=== PATIENT | female | born 2000 | race Caucasian/White ===

== ENCOUNTER 2020-01-30 06:41 | Emergency (ER) | payer OTHER ==
[2020-01-30 06:46] VITALS: TEMP 98.4
[2020-01-30] MEDS ORDERED: ONDANSETRON ODT 4 MG TAB PO STA (06:54)
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
--- NOTE | 2020-01-30 07:29 | CT ---
EXAMINATION TYPE: CT brain víctor bustillos DATE OF EXAM: 01/30/2020 COMPARISON: None HISTORY: Fall, Headaches CT DLP: 1604.[address] Brain: Unenhanced CT of the brain was performed. The ventricles, basal cisterns and sulci overlying the cerebral convexities demonstrate a normal appe arance. There is no evidence for intracranial hemorrhage or sulcal effacement. No mass effects are seen. If symptoms persist consider MRI. Osseous calvarium is intact. IMPRESSION: No acute intracranial process CT Cervical Spine: Unenhanced CT of the cervical spine was performed with bone and soft tissue window settings submitted . Coronal and sagittal reconstruction is obtained. There is normal alignment and prevertebral soft tissues. I do not see evidence for fracture or sublu xation. No significant degenerative changes are present. The lung apices are clear. IMPRESSION: No evidence for acute fracture or subluxation of the cervical spine.
--- NOTE | 2020-01-30 07:55 | XR ---
EXAMINATION TYPE: XR Hip RT and AP Pelvis DATE OF EXAM: 01/30/2020 CLINICAL HISTORY: pain TECHNIQUE: Single view the pelvis is submitted. The right hip are also submitted. FINDINGS: No evidence for fracture, dislocation or bony lesion. Joint spaces are well-preserved. S I joints appear symmetric. IMPRESSION: 1. No acute fracture or dislocation seen. ICD 10 NO FRACTURE, INITIAL EVALUATION
[2020-01-30 08:48] VITALS: BP 128/79; PULSE 86; RESP 18
== END 2020-01-30 08:36 | disposition home or self-care (01) ==
LOC: EC 06:41
DX: S50.311A Abrasion of right elbow, initial encounter (principal); R51 Headache; M25.559 Pain in unspecified hip; Z91.018 Allergy to other foods; W05.1XXA Fall from non-moving nonmotorized scooter, initial encounter; Y93.55 Activity, bike riding
CPT/HCPCS: 70450; 72125; 73502; 99284

== ENCOUNTER 2020-02-06 03:48 | Emergency (ER) | payer OTHER ==
[2020-02-06] MEDS ORDERED: methylPREDNISolone SOD SUCCI 125 MG/2 ML VIAL IV STA (04:18)
[2020-02-06] MEDS ORDERED: IPRATROPIUM-ALBUTEROL 3 ML NEB INHALATION STA (04:18)
[2020-02-06] MEDS ORDERED: SODIUM CHLORIDE 0.9% 1,000 ML IV STA (04:18)
[2020-02-06] MEDS ORDERED: LORazepam 2 MG/ML INJ IV STA (04:19)
[2020-02-06] MEDS ORDERED: ONDANSETRON 4 MG/2 ML VIAL IVP STA (04:20)
--- NOTE | 2020-02-06 04:21 | ED ---
SOB HPI - General Chief Complaint: Shortness of Breath Stated Complaint: SOB Time Seen by Provider: 02/06/20 04:03 Source: patient, RN notes reviewed, old records reviewed Mode of arrival: ambulatory Limitations: no limitations - History of Present Illness Initial Comments: This is a 19-year-old female she presents today for evaluation regards to severe shortness of breath also of anxiety and dyspnea. With significant blood loss. Patient wishes going to. She does have a lot of cramping lightheadedness occasional shortness of breath and feelings of dizziness and weakness that she may pass out. No severe pain. No current chest pain which is severe she does have shortness of breath took inhaler did mildly help. MD Complaint: shortness of breath, cough, anxiety -: hour(s) Severity: moderate Severity scale (1-10): 6 Consistency: constant Improves With: oxygen, bronchodilators Worsens With: exertion, movement Context: recent URI, other (Patient on her period) - Related Data Allergies Allergy/AdvReac Type Severity Reaction Status Date / Time gluten Allergy Rash/Hives Verified 02/06/20 03:54 Review of Systems ROS Statement: Those systems with pertinent positive or pertinent negative responses have been documented in the HPI. ROS Other: All systems not noted in ROS Statement are negative. Past Medical History Past Medical History: Asthma History of Any Multi-Drug Resistant Organisms: None Reported Past Surgical History: No Surgical Hx Reported Past Psychological History: Anxiety, Bipolar, Depression, PTSD Smoking Status: Never smoker Past Alcohol Use History: None Reported Past Drug Use History: None Reported General Exam Limitations: no limitations General appearance: alert, in no apparent distress, obese Head exam: Present: atraumatic, normocephalic, normal inspection Eye exam: Present: normal appearance, PERRL, EOMI. Absent: scleral icterus, conjunctival injection, periorbital swelling ENT exam: Present: normal exam, mucous membranes moist Neck exam: Present: normal inspection. Absent: tenderness, meningismus, lymphadenopathy Respiratory exam: Present: wheezes, accessory muscle use, decreased breath sounds, prolonged expiratory. Absent: respiratory distress, rales, rhonchi, stridor Cardiovascular Exam: Present: regular rate, normal rhythm, normal heart sounds. Absent: systolic murmur, diastolic murmur, rubs, gallop, clicks GI/Abdominal exam: Present: soft, normal bowel sounds. Absent: distended, tenderness, guarding, rebound, rigid Extremities exam: Present: normal inspection, full ROM, normal capillary refill. Absent: tenderness, pedal edema, joint swelling, calf tenderness Back exam: Present: normal inspection Neurological exam: Present: alert, oriented X3, CN II-XII intact Psychiatric exam: Present: normal affect, normal mood Skin exam: Present: warm, dry, intact, normal color. Absent: rash Course Vital Signs 02/06/20 02/06/20 02/06/20 03:52 04:30 04:44 Temperature 98.7 F Pulse Rate 77 68 76 Respiratory 19 Rate Blood Pressure 121/68 O2 Sat by Pulse 99 Oximetry - Reevaluation(s) Reevaluation #1: 02/06/20 04:21 Medical records reviewed Reevaluation #2: 02/06/20 05:05 Patient symptoms are significantly improved here in the ER Reevaluation #3: 02/06/20 05:05 Patient is informed results questions are answered Medical Decision Making - Medical Decision Making 19 female DEL with anxiety times asthma exacerbation. Post symptoms are improved here in the ER hemoglobin is normal no concern for significant vaginal bleeding patient can be discharged home - Lab Data Result diagrams: 02/06/20 04:31 Lab Results 02/06/20 02/06/20 Range/Units 04:31 04:31 WBC 8.7 (4.0-11.0) k/uL RBC 4.61 (3.80-5.40) m/uL Hgb 13.0 (11.4-16.0) gm/dL Hct 40.0 (34.0-46.0) % MCV 86.8 (80.0-100.0) fL MCH 28.2 (25.0-35.0) pg MCHC 32.5 (31.0-37.0) g/dL RDW 13.8 (11.5-15.5) % Plt Count 325 (150-450) k/uL Neutrophils % 68 % Lymphocytes % 24 % Monocytes % 5 % Eosinophils % 1 % Basophils % 1 % Neutrophils # 5.9 (1.3-7.7) k/uL Lymphocytes # 2.1 (1.0-4.8) k/uL Monocytes # 0.5 (0-1.0) k/uL Eosinophils # 0.1 (0-0.7) k/uL Basophils # 0.0 (0-0.2) k/uL Urine HCG, Qual Not Detected (Not Detectd) - Radiology Data Radiology results: report reviewed (Chest x-ray is negative for acute disease), image reviewed Disposition Clinical Impression: Asthma with acute exacerbation, Anxiety, DUB (dysfunctional uterine bleeding) Disposition: HOME SELF-CARE Condition: Good Instructions (If sedation given, give patient instructions): Asthma (ED), Acute Bronchitis (ED), Menorrhagia (ED) Is patient prescribed a controlled substance at d/c from ED?: No Referrals: None,Stated [Primary Care Provider] - 1-2 days
[2020-02-06 05:00] LABS: Basophils % (A) 1 %; Eosinophils # (A) 0.1 k/uL (0-0.7); Eosinophils % (A) 1 %; Lymphocytes # (A) 2.1 k/uL (1.0-4.8); Lymphocytes % (A) 24 %; MCH 28.2 pg (25.0-35.0); MCHC 32.5 g/dL (31.0-37.0); MCV 86.8 fL (80.0-100.0); Mean Platelet Volume 6.8; Monocytes # (A) 0.5 k/uL (0-1.0); Monocytes % (A) 5 %; Neutrophils # (A) 5.9 k/uL (1.3-7.7); Neutrophils % (A) 68 %; Platelet Count 325 k/uL (150-450); RBC 4.61 m/uL (3.80-5.40); RDW 13.8 % (11.5-15.5); WBC 8.7 k/uL (4.0-11.0)
[2020-02-06 05:06] LABS: ALT 20 U/L (4-34); AST 22 U/L (14-36); African American GFR (CKD) >90 (>60 ml/min/1.73 sqM); Albumin 4.1 g/dL (3.5-5.0); Alkaline Phosphatase 81 U/L (38-126); Anion Gap 8 mmol/L; Blood Urea Nitrogen 13 mg/dL (7-17); Calcium 9.6 mg/dL (8.4-10.2); Carbon Dioxide 24 mmol/L (22-30); Chloride 107 mmol/L (98-107); Glucose 93 mg/dL (74-99); Magnesium 1.9 mg/dL (1.6-2.3); Non-African American GFR(CKD) >90 (>60 ml/min/1.73 sqM); Potassium 4.2 mmol/L (3.5-5.1); Sodium 139 mmol/L (137-145); Total Bilirubin 0.3 mg/dL (0.2-1.3); Total Protein 7.5 g/dL (6.3-8.2)
[2020-02-06 05:52] VITALS: BP 109/55; PULSE 89; RESP 18; TEMP 98
[2020-02-06] MEDS ORDERED: ONDANSETRON 4 MG ODT STARTER PACK 2 TAB BTL PO STA (05:56)
--- NOTE | 2020-02-06 06:27 | XR ---
EXAM: XR Chest, 2 Views CLINICAL HISTORY: ITS.REASON XR Reason: difficulty breathing TECHNIQUE: Frontal and lateral views of the chest. COMPARISON: No relevant prior studies available. FINDINGS: Lungs: Low lung volumes secondary to poor inspiration. No consolidation. Pleural space: Unremarkable. No pneumothorax. Heart: Unremarkable. No cardiomegaly. Mediastinum: Unremarkable. Bones/joints: Unremarkable. IMPRESSION: No focal infiltrate.
== END 2020-02-06 05:52 | disposition home or self-care (01) ==
LOC: EC 03:48
DX: J45.901 Unspecified asthma with (acute) exacerbation (principal); F41.9 Anxiety disorder, unspecified; N93.8 Other specified abnormal uterine and vaginal bleeding; Z91.040 Latex allergy status
CPT/HCPCS: 36415; 94640; 80053; 83735; 85025; 81025; 71046; 99285; 96374; 96375 ×2; 96361; J2060; J2930; J2405; S0119

== ENCOUNTER 2020-02-08 11:07 | Emergency (ER) | payer OTHER ==
[2020-02-08] MEDS ORDERED: SODIUM CHLORIDE 0.9% 1,000 ML IV STA ×2 (11:27)
[2020-02-08] MEDS ORDERED: methylPREDNISolone SOD SUCCI 125 MG/2 ML VIAL IV STA (11:29)
--- NOTE | 2020-02-08 11:35 | ED ---
General Adult HPI - General Chief complaint: Shortness of Breath Stated complaint: cough sob Time Seen by Provider: 02/08/20 11:18 Source: patient, RN notes reviewed, old records reviewed Mode of arrival: ambulatory Limitations: no limitations - History of Present Illness Initial comments: This patient's a 19-year-old female who presents to the ER today for evaluation for shortness of breath. She reports that she was seen in the emergency room 2 days ago for asthma bronchitis exacerbation as well as diagnosed with anxiety. She states she is currently on her menstrual. She states that he's had a nonproductive cough. She states that seems like it's difficult for her to take it all deep breath. She is using her inhaler. - Related Data Allergies Allergy/AdvReac Type Severity Reaction Status Date / Time gluten Allergy Rash/Hives Verified 02/08/20 11:16 Review of Systems ROS Statement: Those systems with pertinent positive or pertinent negative responses have been documented in the HPI. ROS Other: All systems not noted in ROS Statement are negative. Past Medical History Past Medical History: Asthma History of Any Multi-Drug Resistant Organisms: None Reported Past Surgical History: No Surgical Hx Reported Past Psychological History: Anxiety, Bipolar, Depression, PTSD Smoking Status: Never smoker Past Alcohol Use History: None Reported Past Drug Use History: None Reported General Exam - General Exam Comments Initial Comments: Pleasant alert and oriented 19-year-old female. No acute distress. Limitations: no limitations General appearance: alert, in no apparent distress Head exam: Present: atraumatic, normocephalic, normal inspection Eye exam: Present: normal appearance, PERRL, EOMI. Absent: scleral icterus, conjunctival injection, periorbital swelling ENT exam: Present: normal exam, mucous membranes moist Neck exam: Present: normal inspection. Absent: tenderness, meningismus, lymphadenopathy Respiratory exam: Present: normal lung sounds bilaterally. Absent: respiratory distress, wheezes, rales, rhonchi, stridor Cardiovascular Exam: Present: regular rate, normal rhythm, normal heart sounds. Absent: systolic murmur, diastolic murmur, rubs, gallop, clicks GI/Abdominal exam: Present: soft, normal bowel sounds. Absent: distended, tenderness, guarding, rebound, rigid Extremities exam: Present: normal inspection, full ROM, normal capillary refill. Absent: tenderness, pedal edema, joint swelling, calf tenderness Back exam: Present: normal inspection Neurological exam: Present: alert, oriented X3, CN II-XII intact Psychiatric exam: Present: normal affect, normal mood Skin exam: Present: warm, dry, intact, normal color. Absent: rash Course Vital Signs 02/08/20 02/08/20 11:12 11:52 Temperature 98.2 F Pulse Rate 67 Respiratory 20 18 Rate Blood Pressure 128/80 O2 Sat by Pulse 100 Oximetry EKG Findings - EKG Comments: EKG Findings:: EKG shows normal sinus rhythm with sinus arrhythmia. Moderate voltage return for LVH. Ventricular rate of 65 bpm. Was 164 ms. QS duration is 94 ms. QT QTc is 394/409 ms. Medical Decision Making - Medical Decision Making 19-year-old female presents the ER today for chest pain shortness of breath. She seen her and her 2 days ago. At that time was diagnosed with anxiety as well as asthma exacerbation. This time her lungs are clear. She also complained of palpitations. Patient's labs including troponin and d-dimer are normal. Chest x-ray shows no acute changes. EKG was negative for acute process. Patient's case was discussed with Dr. Graham. Do believe patient's symptoms are most likely related to anxiety and mild bronchitis. Advised her to follow-up with her PCP. We'll add additional Medrol Dosepak. - Lab Data Result diagrams: 02/08/20 12:15 02/08/20 12:15 Lab Results 02/08/20 02/08/20 02/08/20 Range/Units 12:15 12:15 12:15 WBC 8.9 (4.0-11.0) k/uL RBC 4.46 (3.80-5.40) m/uL Hgb 12.0 (11.4-16.0) gm/dL Hct 39.4 (34.0-46.0) % MCV 88.3 (80.0-100.0) fL MCH 26.9 (25.0-35.0) pg MCHC 30.4 L (31.0-37.0) g/dL RDW 13.9 (11.5-15.5) % Plt Count 306 (150-450) k/uL Neutrophils % 68 % Lymphocytes % 25 % Monocytes % 5 % Eosinophils % 1 % Basophils % 1 % Neutrophils # 6.1 (1.3-7.7) k/uL Lymphocytes # 2.2 (1.0-4.8) k/uL Monocytes # 0.4 (0-1.0) k/uL Eosinophils # 0.1 (0-0.7) k/uL Basophils # 0.1 (0-0.2) k/uL PT 9.6 (9.0-12.0) sec INR 0.9 (<1.2) APTT 24.9 (22.0-30.0) sec D-Dimer 0.28 (<0.60) mg/L FEU Sodium 140 (137-145) mmol/L Potassium 3.9 (3.5-5.1) mmol/L Chloride 106 (98-107) mmol/L Carbon Dioxide 29 (22-30) mmol/L Anion Gap 5 mmol/L BUN 12 (7-17) mg/dL Creatinine 0.71 (0.52-1.04) mg/dL Est GFR (CKD-EPI)AfAm >90 (>60 ml/min/1.73 sqM) Est GFR (CKD-EPI)NonAf >90 (>60 ml/min/1.73 sqM) Glucose 94 (74-99) mg/dL Plasma Lactic Acid Patrick (0.7-2.0) mmol/L Calcium 9.2 (8.4-10.2) mg/dL Magnesium 2.0 (1.6-2.3) mg/dL Total Bilirubin 0.3 (0.2-1.3) mg/dL AST 26 (14-36) U/L ALT 22 (4-34) U/L Alkaline Phosphatase 58 (38-126) U/L Troponin I (0.000-0.034) ng/mL Total Protein 7.1 (6.3-8.2) g/dL Albumin 3.9 (3.5-5.0) g/dL 02/08/20 02/08/20 Range/Units 12:15 12:15 WBC (4.0-11.0) k/uL RBC (3.80-5.40) m/uL Hgb (11.4-16.0) gm/dL Hct (34.0-46.0) % MCV (80.0-100.0) fL MCH (25.0-35.0) pg MCHC (31.0-37.0) g/dL RDW (11.5-15.5) % Plt Count (150-450) k/uL Neutrophils % % Lymphocytes % % Monocytes % % Eosinophils % % Basophils % % Neutrophils # (1.3-7.7) k/uL Lymphocytes # (1.0-4.8) k/uL Monocytes # (0-1.0) k/uL Eosinophils # (0-0.7) k/uL Basophils # (0-0.2) k/uL PT (9.0-12.0) sec INR (<1.2) APTT (22.0-30.0) sec D-Dimer (<0.60) mg/L FEU Sodium (137-145) mmol/L Potassium (3.5-5.1) mmol/L Chloride (98-107) mmol/L Carbon Dioxide (22-30) mmol/L Anion Gap mmol/L BUN (7-17) mg/dL Creatinine (0.52-1.04) mg/dL Est GFR (CKD-EPI)AfAm (>60 ml/min/1.73 sqM) Est GFR (CKD-EPI)NonAf (>60 ml/min/1.73 sqM) Glucose (74-99) mg/dL Plasma Lactic Acid Patrick 1.2 (0.7-2.0) mmol/L Calcium (8.4-10.2) mg/dL Magnesium (1.6-2.3) mg/dL Total Bilirubin (0.2-1.3) mg/dL AST (14-36) U/L ALT (4-34) U/L Alkaline Phosphatase (38-126) U/L Troponin I <0.012 (0.000-0.034) ng/mL Total Protein (6.3-8.2) g/dL Albumin (3.5-5.0) g/dL - Radiology Data Radiology results: report reviewed cXR x-ray shows no acute cardio pulmonary process. No significant change from prior. Disposition Clinical Impression: Anxiety, Asthma with acute exacerbation Disposition: HOME SELF-CARE Condition: Good Instructions (If sedation given, give patient instructions): Dyspnea (ED), Anxiety (ED) Additional Instructions: Please use medication as discussed. Please follow up with family doctor if symptoms have not improved over the next two days. Please return to the emergency room if your symptoms increase or worsen or for any other concerns. Is patient prescribed a controlled substance at d/c from ED?: No Referrals: None,Stated [Primary Care Provider] - 1-2 days Time of Disposition: 13:46
--- NOTE | 2020-02-08 12:08 | XR ---
EXAMINATION TYPE: XR chest 2V DATE OF EXAM: 02/08/2020 COMPARISON: Chest x-ray 2 days ago. HISTORY: Shortness of breath and chest pain and pressure. TECHNIQUE: Frontal and lateral views of the chest are obtained. FINDINGS: There is no focal air space opacity, pleural effusion, or pneumothorax seen. The cardiac silhouette size is within normal limits. Slight underlying scoliotic curvature or positioning. IMPRESSION: No acute cardiopulmonary process. No significant change from prior.
[2020-02-08 12:23] LABS: Basophils # (A) 0.1 k/uL (0-0.2); Basophils % (A) 1 %; Eosinophils # (A) 0.1 k/uL (0-0.7); Eosinophils % (A) 1 %; HCT 39.4 % (34.0-46.0); Lymphocytes # (A) 2.2 k/uL (1.0-4.8); Lymphocytes % (A) 25 %; MCH 26.9 pg (25.0-35.0); MCHC 30.4 g/dL (31.0-37.0); MCV 88.3 fL (80.0-100.0); Mean Platelet Volume 6.8; Monocytes # (A) 0.4 k/uL (0-1.0); Monocytes % (A) 5 %; Neutrophils # (A) 6.1 k/uL (1.3-7.7); Neutrophils % (A) 68 %; Platelet Count 306 k/uL (150-450); RBC 4.46 m/uL (3.80-5.40); RDW 13.9 % (11.5-15.5); WBC 8.9 k/uL (4.0-11.0)
[2020-02-08 12:35] LABS: ALT 22 U/L (4-34); AST 26 U/L (14-36); African American GFR (CKD) >90 (>60 ml/min/1.73 sqM); Albumin 3.9 g/dL (3.5-5.0); Alkaline Phosphatase 58 U/L (38-126); Anion Gap 5 mmol/L; Blood Urea Nitrogen 12 mg/dL (7-17); Calcium 9.2 mg/dL (8.4-10.2); Carbon Dioxide 29 mmol/L (22-30); Chloride 106 mmol/L (98-107); Glucose 94 mg/dL (74-99); Non-African American GFR(CKD) >90 (>60 ml/min/1.73 sqM); Potassium 3.9 mmol/L (3.5-5.1); Sodium 140 mmol/L (137-145); Total Bilirubin 0.3 mg/dL (0.2-1.3); Total Protein 7.1 g/dL (6.3-8.2)
[2020-02-08] MEDS ORDERED: ONDANSETRON 4 MG/2 ML VIAL IVP STA (13:11)
[2020-02-08 13:16] LABS: D-Dimer 0.28 mg/L FEU (<0.60); INR 0.9 (<1.2); Partial Thromboplastin Time 24.9 sec (22.0-30.0); Prothrombin Time 9.6 sec (9.0-12.0)
[2020-02-08 14:07] VITALS: BP 136/80; PULSE 71; RESP 20; TEMP 98.3
== END 2020-02-08 14:07 | disposition home or self-care (01) ==
LOC: EC 11:07
DX: J45.901 Unspecified asthma with (acute) exacerbation (principal); F41.9 Anxiety disorder, unspecified; Z91.018 Allergy to other foods
CPT/HCPCS: 36415; 93005; 85379; 80053; 83605; 83735; 84484; 85025; 85610; 85730; 71046; 99285; 96374; 96375; 96361 ×2; J2930; J2405

== ENCOUNTER → 2020-02-18 | Outpatient (CLI) | payer OTHER ==
[2020-02-18 21:39] LABS: Hemoglobin A1C 5.1 % (4.0-6.0)
== END | disposition home or self-care (01) ==
LOC: RADECHMAIN 11:58
PROVIDERS: ATTEND Family Medicine
DX: R00.0 Tachycardia, unspecified (principal); R00.1 Bradycardia, unspecified; F41.9 Anxiety disorder, unspecified; F32.9 Major depressive disorder, single episode, unspecified; E66.01 Morbid (severe) obesity due to excess calories; Z68.43 Body mass index [BMI] 50.0-59.9, adult; R53.83 Other fatigue
CPT/HCPCS: 36415; 83036; 84443; 93225; 93226

== ENCOUNTER 2020-07-26 06:36 | Emergency (ER) | payer OTHER ==
[2020-07-26 06:42] VITALS: BP 98/60; PULSE 111; RESP 18; TEMP 97.6
[2020-07-26] MEDS ORDERED: ACET/COD 300 MG/30 MG STARTER PACK 6 TAB BTL PO STA (07:01)
--- NOTE | 2020-07-26 07:02 | ED ---
Upper Extremity HPI - General Chief Complaint: Extremity Injury, Upper Stated Complaint: Extremity Pain/Upper Right Arm Time Seen by Provider: 07/26/20 06:43 Source: patient, RN notes reviewed Mode of arrival: ambulatory Limitations: no limitations - History of Present Illness Initial Comments: 20-year-old female presents emergency Department with chief complaint of arm pain. Patient states sometimes on the right and left. Patient states she's had this in the past. Patient states she woke up with tingling in her arm which is now resolved states painful for the shoulder. No chest pain or shortness breath patient states she has no decreased movement states it is painful to move arm. Patient states that radiates down her arm. No discoloration or swelling - Related Data Previous Rx's Medication Instructions Recorded Ondansetron Odt [Zofran Odt] 4 mg PO Q8HR PRN #12 tab 02/08/20 Phenazopyridine [Pyridium] 200 mg PO TID #18 tablet 02/13/20 Ibuprofen [Motrin] 600 mg PO Q8HR PRN #20 tab 07/26/20 Allergies Allergy/AdvReac Type Severity Reaction Status Date / Time gluten Allergy Rash/Hives Verified 07/26/20 06:39 Review of Systems ROS Statement: Those systems with pertinent positive or pertinent negative responses have been documented in the HPI. ROS Other: All systems not noted in ROS Statement are negative. Past Medical History Past Medical History: Asthma, GERD/Reflux Additional Past Medical History / Comment(s): UTI, vertigo History of Any Multi-Drug Resistant Organisms: None Reported Past Surgical History: No Surgical Hx Reported Past Psychological History: Anxiety, Bipolar, Depression, PTSD Smoking Status: Never smoker Past Alcohol Use History: Occasional, Rare Past Drug Use History: None Reported General Exam Limitations: no limitations General appearance: alert, in no apparent distress, obese Head exam: Present: atraumatic, normocephalic, normal inspection Neck exam: Present: normal inspection. Absent: tenderness, meningismus, lymphadenopathy Respiratory exam: Present: normal lung sounds bilaterally. Absent: respiratory distress, wheezes, rales, rhonchi, stridor Cardiovascular Exam: Present: regular rate, normal rhythm, normal heart sounds. Absent: systolic murmur, diastolic murmur, rubs, gallop, clicks Extremities exam: Present: other (Upper strength equal bilaterally neurovascular intact lower strength equal equal color equal warmth radial pulses equal Peripheral less than 2 seconds) Back exam: Present: full ROM. Absent: tenderness Neurological exam: Present: alert, oriented X3, CN II-XII intact, reflexes normal. Absent: motor sensory deficit Skin exam: Present: warm, dry, intact, normal color. Absent: rash Course Vital Signs 07/26/20 06:39 Temperature 97.6 F Pulse Rate 111 H Respiratory 18 Rate Blood Pressure 98/60 O2 Sat by Pulse 98 Oximetry Medical Decision Making - Medical Decision Making Patient symptoms more consistent with cervical radiculopathy. She has no neurovascular intact. Patient follow-up with orthopedics return parameters were discussed. Disposition Clinical Impression: Cervical radicular pain, Arm pain Disposition: HOME SELF-CARE Condition: Stable Instructions (If sedation given, give patient instructions): Cervical Radiculopathy (ED) Additional Instructions: Please return to the Emergency Department if symptoms worsen or any other concerns. Prescriptions: Ibuprofen [Motrin] 600 mg PO Q8HR PRN #20 tab PRN Reason: Pain Is patient prescribed a controlled substance at d/c from ED?: No Referrals: None,Stated [Primary Care Provider] - 1-2 days Killian Chan DO [Doctor of Osteopathic Medicine] - 1-2 days Time of Disposition: 07:02
[2020-07-26] MEDS ORDERED: ONDANSETRON 4 MG ODT STARTER PACK 2 TAB BTL PO STA (07:08)
== END 2020-07-26 07:29 | disposition home or self-care (01) ==
LOC: EC 06:36
DX: M54.12 Radiculopathy, cervical region (principal); J45.909 Unspecified asthma, uncomplicated; K21.9 Gastro-esophageal reflux disease without esophagitis; F41.9 Anxiety disorder, unspecified; F32.9 Major depressive disorder, single episode, unspecified
CPT/HCPCS: 99283; S0119

== ENCOUNTER 2020-08-01 14:20 | Emergency (ER) | payer OTHER ==
[2020-08-01 14:39] VITALS: RESP 18
[2020-08-01] MEDS ORDERED: IBUPROFEN 600 MG TAB PO STA (14:49)
[2020-08-01] MEDS ORDERED: ACETAMINOPHEN TAB 325 MG TAB PO STA (14:49)
[2020-08-01] MEDS ORDERED: ONDANSETRON 4 MG/2 ML VIAL IVP STA (14:49)
[2020-08-01] MEDS ORDERED: SODIUM CHLORIDE 0.9% 1,000 ML IV STA (14:49)
[2020-08-01] MEDS ORDERED: IPRATROPIUM-ALBUTEROL 3 ML NEB INHALATION STA (14:57)
--- NOTE | 2020-08-01 15:00 | ED ---
General Adult HPI - General Chief complaint: Dizziness Stated complaint: Nausea/dizziness Time Seen by Provider: 08/01/20 14:49 Source: patient, RN notes reviewed Mode of arrival: ambulatory Limitations: no limitations - History of Present Illness Initial comments: Patient is a 20-year-old female that presents to emergency department complaining of general body aches, sinus congestion, fatigue and some lightheadedness. She notes that she hasn't eaten or drank very much today due to not feeling well. She did treat the nausea and lightheadedness/dizziness due to the lack of food and/or hydration. She notes that for the last several days she's been feeling sick with general muscle aches and pains. She has tried eating just soups resting with no relief. Shesays she finally came in to get evaluated just to make sure nothing more serious is wrong. She denied any chest pain headache vomiting diarrhea constipation chills, night sweats numbness numbness tingling - Related Data Previous Rx's Medication Instructions Recorded Ondansetron Odt [Zofran Odt] 4 mg PO Q8HR PRN #12 tab 02/08/20 Phenazopyridine [Pyridium] 200 mg PO TID #18 tablet 02/13/20 Ibuprofen [Motrin] 600 mg PO Q8HR PRN #20 tab 07/26/20 Allergies Allergy/AdvReac Type Severity Reaction Status Date / Time gluten Allergy Rash/Hives Verified 08/01/20 14:39 Review of Systems ROS Statement: Those systems with pertinent positive or pertinent negative responses have been documented in the HPI. ROS Other: All systems not noted in ROS Statement are negative. Past Medical History Past Medical History: Asthma, GERD/Reflux Additional Past Medical History / Comment(s): UTI, vertigo History of Any Multi-Drug Resistant Organisms: None Reported Past Surgical History: No Surgical Hx Reported Past Psychological History: Anxiety, Bipolar, Depression, PTSD Smoking Status: Never smoker Past Alcohol Use History: Rare Past Drug Use History: None Reported General Exam Limitations: no limitations General appearance: alert, in no apparent distress, obese Head exam: Present: atraumatic, normocephalic, normal inspection Eye exam: Present: normal appearance, PERRL, EOMI. Absent: scleral icterus, conjunctival injection, periorbital swelling ENT exam: Present: normal exam, mucous membranes moist Neck exam: Present: normal inspection. Absent: tenderness, meningismus, lymphadenopathy Respiratory exam: Present: normal lung sounds bilaterally. Absent: respiratory distress, wheezes, rales, rhonchi, stridor Cardiovascular Exam: Present: regular rate, normal rhythm, normal heart sounds. Absent: systolic murmur, diastolic murmur, rubs, gallop, clicks GI/Abdominal exam: Present: soft, normal bowel sounds. Absent: distended, tenderness, guarding, rebound, rigid Extremities exam: Present: normal inspection, full ROM, normal capillary refill. Absent: tenderness, pedal edema, joint swelling, calf tenderness Back exam: Present: normal inspection Neurological exam: Present: alert, oriented X3, CN II-XII intact Psychiatric exam: Present: normal affect, normal mood Skin exam: Present: warm, dry, intact, normal color. Absent: rash Course Vital Signs 08/01/20 08/01/20 08/01/20 14:36 15:31 15:41 Temperature 101.0 F H 99.4 F Pulse Rate 115 H 97 90 Respiratory 18 18 Rate Blood Pressure 94/51 129/76 O2 Sat by Pulse 98 100 Oximetry 08/01/20 15:52 Temperature Pulse Rate 98 Respiratory Rate Blood Pressure O2 Sat by Pulse Oximetry Medical Decision Making - Medical Decision Making 20-year-old female with multiple complaints such as general muscle aches and fatigue nausea and dizziness. Labs, EKG, 1 L normal saline, 650 mg Tylenol, 600 mg Motrin ordered. Chest x-ray ordered. Labs unremarkable. Case discussed with Dr. Barajas, decided patient discharged home with conservative management. - Lab Data Result diagrams: 08/01/20 15:20 08/01/20 15:20 Lab Results 08/01/20 08/01/20 08/01/20 Range/Units 15:20 15:20 15:20 WBC 5.5 (3.8-10.6) k/uL RBC 4.57 (3.80-5.40) m/uL Hgb 13.2 (11.4-16.0) gm/dL Hct 39.0 (34.0-46.0) % MCV 85.4 (80.0-100.0) fL MCH 28.9 (25.0-35.0) pg MCHC 33.8 (31.0-37.0) g/dL RDW 14.0 (11.5-15.5) % Plt Count 277 (150-450) k/uL MPV 6.7 Neutrophils % 67 % Lymphocytes % 14 % Monocytes % 14 % Eosinophils % 1 % Basophils % 1 % Neutrophils # 3.7 (1.3-7.7) k/uL Lymphocytes # 0.8 L (1.0-4.8) k/uL Monocytes # 0.8 (0-1.0) k/uL Eosinophils # 0.1 (0-0.7) k/uL Basophils # 0.1 (0-0.2) k/uL Sodium 137 (137-145) mmol/L Potassium 4.3 (3.5-5.1) mmol/L Chloride 102 (98-107) mmol/L Carbon Dioxide 25 (22-30) mmol/L Anion Gap 10 mmol/L BUN 9 (7-17) mg/dL Creatinine 0.70 (0.52-1.04) mg/dL Est GFR (CKD-EPI)AfAm >90 (>60 ml/min/1.73 sqM) Est GFR (CKD-EPI)NonAf >90 (>60 ml/min/1.73 sqM) Glucose 101 H (74-99) mg/dL Calcium 9.4 (8.4-10.2) mg/dL Total Bilirubin 0.4 (0.2-1.3) mg/dL AST 23 (14-36) U/L ALT 16 (4-34) U/L Alkaline Phosphatase 76 (38-126) U/L Total Protein 7.9 (6.3-8.2) g/dL Albumin 4.4 (3.5-5.0) g/dL Influenza Type A RNA Not Detected (Not Detectd) Influenza Type B (PCR) Not Detected (Not Detectd) - EKG Data -: EKG Interpreted by Mt EKG shows normal: sinus rhythm Rate: normal EKG Comments: Ventricular rate 91 bpm, IN interval 166 ms, QRS duration 90 ms, QT/QTC 346/425 ms, PareT axes 8/-6/10. Normal sinus rhythm, voltage criteria for left ventricular hypertrophy, abnormal ECG. - Radiology Data Radiology results: report reviewed, image reviewed Chest x-ray: Normal chest. No adverse change. Disposition Clinical Impression: Viral syndrome Disposition: HOME SELF-CARE Condition: Stable Instructions (If sedation given, give patient instructions): Acute Nausea and Vomiting (ED), Dizziness (ED) Additional Instructions: Please return to the Emergency Department if symptoms worsen or any other concerns. Continue to eat a bland diet increase oral fluid intake. Take [id number] anti-inflammatories for fever and symptomatic control. Follow-up with primary care in 2-4 days. Is patient prescribed a controlled substance at d/c from ED?: No Referrals: None,Stated [Primary Care Provider] - 1-2 days Time of Disposition: 16:08
[2020-08-01 15:31] VITALS: BP 129/76; TEMP 99.4
[2020-08-01 15:32] LABS: Basophils # (A) 0.1 k/uL (0-0.2); Basophils % (A) 1 %; Eosinophils # (A) 0.1 k/uL (0-0.7); Eosinophils % (A) 1 %; HGB 13.2 gm/dL (11.4-16.0); Lymphocytes # (A) 0.8 k/uL (1.0-4.8); Lymphocytes % (A) 14 %; MCH 28.9 pg (25.0-35.0); MCHC 33.8 g/dL (31.0-37.0); MCV 85.4 fL (80.0-100.0); Mean Platelet Volume 6.7; Monocytes # (A) 0.8 k/uL (0-1.0); Monocytes % (A) 14 %; Neutrophils # (A) 3.7 k/uL (1.3-7.7); Neutrophils % (A) 67 %; Platelet Count 277 k/uL (150-450); RBC 4.57 m/uL (3.80-5.40); WBC 5.5 k/uL (3.8-10.6)
--- NOTE | 2020-08-01 15:34 | XR ---
EXAMINATION TYPE: XR chest 1V portable DATE OF EXAM: 08/01/2020 COMPARISON: 02/08/2020 HISTORY: Short of breath TECHNIQUE: FINDINGS: Heart and mediastinum are normal. Lungs are clear. Diaphragm is normal. Bony thorax appears normal. IMPRESSION: Normal chest. No adverse change.
[2020-08-01 15:42] LABS: ALT 16 U/L (4-34); AST 23 U/L (14-36); African American GFR (CKD) >90 (>60 ml/min/1.73 sqM); Albumin 4.4 g/dL (3.5-5.0); Alkaline Phosphatase 76 U/L (38-126); Anion Gap 10 mmol/L; Blood Urea Nitrogen 9 mg/dL (7-17); Calcium 9.4 mg/dL (8.4-10.2); Carbon Dioxide 25 mmol/L (22-30); Chloride 102 mmol/L (98-107); Glucose 101 mg/dL (74-99); Non-African American GFR(CKD) >90 (>60 ml/min/1.73 sqM); Potassium 4.3 mmol/L (3.5-5.1); Sodium 137 mmol/L (137-145); Total Bilirubin 0.4 mg/dL (0.2-1.3); Total Protein 7.9 g/dL (6.3-8.2)
[2020-08-01 15:53] VITALS: PULSE 98
== END 2020-08-01 16:23 | disposition home or self-care (01) ==
LOC: EC 14:20
DX: B34.9 Viral infection, unspecified (principal); J45.909 Unspecified asthma, uncomplicated; K21.9 Gastro-esophageal reflux disease without esophagitis; F32.9 Major depressive disorder, single episode, unspecified; F41.9 Anxiety disorder, unspecified
CPT/HCPCS: 94640; 93005; 80053; 85025; 87502; 71045; 99284; 96374; 96361; J2405

== ENCOUNTER 2020-08-05 23:00 | Emergency (ER) | payer OTHER ==
[2020-08-05] MEDS ORDERED: ACETAMINOPHEN TAB 500 MG TAB PO STA (23:07)
[2020-08-05] MEDS ORDERED: IBUPROFEN 400 MG TAB PO STA (23:07)
--- NOTE | 2020-08-05 23:24 | XR ---
EXAMINATION TYPE: XR chest 2V DATE OF EXAM: 08/05/2020 COMPARISON: 08/01/2020 HISTORY: Cough TECHNIQUE: 2 views FINDINGS: Heart and mediastinum are normal. There is relative poor inspiration. Lungs are clear of co nsolidation. There are no hilar masses. There is no pleural effusion. Bony thorax appears intact. IMPRESSION: Normal heart. Inspiration decreased compared to old exam. No definite pulmonary infiltrat e.
[2020-08-06] MEDS ORDERED: IPRATROPIUM-ALBUTEROL 3 ML NEB INHALATION STA (01:30)
--- NOTE | 2020-08-06 01:33 | ED ---
General Adult HPI - General Chief complaint: Shortness of Breath Stated complaint: KERA Time Seen by Provider: 08/06/20 00:34 Source: patient, RN notes reviewed Mode of arrival: wheelchair Limitations: no limitations - History of Present Illness Initial comments: Patient is a [age] female that presents to emergency department with increased shortness of breath. She recently came to the emergency room for 5 days ago did not have flu or Covid. She noted that she denies and fevers that her cardiogram night sweats feel cold. She notes that she is having a little bit of wheezing and chest congestion. She was in no apparent distress or pain while sitting in bed during exam and interview. She denied any chest pain headache nausea vomiting diarrhea constipation fever fatigue chills weakness numbness tingling. - Related Data Previous Rx's Medication Instructions Recorded Ondansetron Odt [Zofran Odt] 4 mg PO Q8HR PRN #12 tab 02/08/20 Phenazopyridine [Pyridium] 200 mg PO TID #18 tablet 02/13/20 Ibuprofen [Motrin] 600 mg PO Q8HR PRN #20 tab 07/26/20 Allergies Allergy/AdvReac Type Severity Reaction Status Date / Time gluten Allergy Rash/Hives Verified 08/01/20 14:39 Review of Systems ROS Statement: Those systems with pertinent positive or pertinent negative responses have been documented in the HPI. ROS Other: All systems not noted in ROS Statement are negative. Past Medical History Past Medical History: Asthma, GERD/Reflux Additional Past Medical History / Comment(s): vertigo, History of Any Multi-Drug Resistant Organisms: None Reported Past Surgical History: No Surgical Hx Reported Past Psychological History: Anxiety, Bipolar, Depression, PTSD Smoking Status: Never smoker Past Alcohol Use History: Rare Past Drug Use History: None Reported General Exam Limitations: no limitations General appearance: alert, in no apparent distress, obese Head exam: Present: atraumatic, normocephalic, normal inspection Eye exam: Present: normal appearance, PERRL, EOMI. Absent: scleral icterus, conjunctival injection, periorbital swelling ENT exam: Present: normal exam, mucous membranes moist Neck exam: Present: normal inspection. Absent: tenderness, meningismus, lymphadenopathy Respiratory exam: Present: normal lung sounds bilaterally. Absent: respiratory distress, wheezes, rales, rhonchi, stridor Cardiovascular Exam: Present: regular rate, normal rhythm, normal heart sounds. Absent: systolic murmur, diastolic murmur, rubs, gallop, clicks GI/Abdominal exam: Present: soft, normal bowel sounds. Absent: distended, tenderness, guarding, rebound, rigid Extremities exam: Present: normal inspection, full ROM, normal capillary refill. Absent: tenderness, pedal edema, joint swelling, calf tenderness Neurological exam: Present: alert, oriented X3, CN II-XII intact Psychiatric exam: Present: normal affect, normal mood Skin exam: Present: warm, dry, intact, normal color. Absent: rash Course Vital Signs 08/05/20 08/06/20 08/06/20 23:01 00:30 01:30 Temperature 102.6 F H 99.7 F H Pulse Rate 117 H 98 Respiratory 20 18 19 Rate Blood Pressure 120/63 104/68 O2 Sat by Pulse 96 95 Oximetry Medical Decision Making - Medical Decision Making 20-year-old female complaining of increased shortness of breath, but recently tested for Covid and the flu. DuoNeb ordered. Patient states this is helped at home. Case discussed with Dr. Way, patient to discharge home with conservative management. Disposition Clinical Impression: Upper respiratory tract infection Disposition: HOME SELF-CARE Condition: Stable Instructions (If sedation given, give patient instructions): Upper Respiratory Infection (ED) Additional Instructions: Please return to the Emergency Department if symptoms worsen or any other concerns. Conservative management with rest, increase oral fluids. Alternate Tylenol Motrin every 3-4 hours to help with fever, body aches, inflammation. The night sweats or most likely due to fever to get that under control we will feel better. Take inhaler. Follow-up primary care in 2-4 days, inquire about nebulizer. Is patient prescribed a controlled substance at d/c from ED?: No Referrals: None,Stated [Primary Care Provider] - 1-2 days Time of Disposition: 02:38
[2020-08-06] MEDS ORDERED: dexAMETHasone 4 MG TAB PO STA (03:19)
[2020-08-06 03:30] VITALS: BP 124/66; PULSE 90; RESP 20; TEMP 98.9
== END 2020-08-06 03:28 | disposition home or self-care (01) ==
LOC: EC 23:00
DX: J06.9 Acute upper respiratory infection, unspecified (principal); J45.909 Unspecified asthma, uncomplicated; K21.9 Gastro-esophageal reflux disease without esophagitis; F32.9 Major depressive disorder, single episode, unspecified; F41.9 Anxiety disorder, unspecified; E66.9 Obesity, unspecified; Z68.43 Body mass index [BMI] 50.0-59.9, adult
CPT/HCPCS: 94640; 71046; 99284; J8540

== ENCOUNTER 2020-08-08 16:46 | Emergency (ER) | payer OTHER ==
[2020-08-08] MEDS ORDERED: ALBUTEROL HFA INHALER INHALATION STA (17:05)
[2020-08-08] MEDS ORDERED: ACETAMINOPHEN TAB 325 MG TAB PO STA (17:05)
[2020-08-08] MEDS ORDERED: SODIUM CHLORIDE 0.9% 1,000 ML IV ONE (17:10)
--- NOTE | 2020-08-08 17:15 | ED ---
SOB HPI - General Chief Complaint: Shortness of Breath Stated Complaint: Covid, SOB Time Seen by Provider: 08/08/20 16:58 Source: patient, EMS, RN notes reviewed Mode of arrival: EMS Limitations: no limitations - History of Present Illness Initial Comments: 20-year-old white female patient presents to the emergency room via EMS with complaints of 12 days of cough, shortness of breath, fever. Patient states her live-in boyfriend was diagnosed with Covid 2 weeks ago on her symptoms started 12 days ago. Patient states has been taking Tylenol and Motrin for fever and chills but has not had any today. Patient has history of asthma, vertigo, and GERD. No surgical history. Oxygen saturation 97% on room air, heart rate 1:15, temperature 103, blood pressure 112/61. Patient states chest feels tight and worse with inspiration. Has had a nonproductive cough. Patient states went to [facility] to get a test 3 days ago and found to be positive. MD Complaint: shortness of breath, cough, pain with inspiration -: days(s) (9) Quality: other (tight) Consistency: constant Improves With: nothing Worsens With: exertion, coughing, inspiration Known History Of: asthma Context: other (Recent exposure to Covid 19, 14 days ago) Associated Symptoms: fever, cough, other (decreased appetite) Treatments Prior to Arrival: none - Related Data Previous Rx's Medication Instructions Recorded Ondansetron Odt [Zofran Odt] 4 mg PO Q8HR PRN #12 tab 02/08/20 Phenazopyridine [Pyridium] 200 mg PO TID #18 tablet 02/13/20 Ibuprofen [Motrin] 600 mg PO Q8HR PRN #20 tab 07/26/20 Albuterol Inhaler [Ventolin Hfa 2 puff INHALATION RT-QID 30 Days 08/08/20 Inhaler] #1 puff predniSONE 50 mg PO DAILY #5 tab 08/08/20 Allergies Allergy/AdvReac Type Severity Reaction Status Date / Time gluten Allergy Rash/Hives Verified 08/01/20 14:39 Review of Systems ROS Statement: Those systems with pertinent positive or pertinent negative responses have been documented in the HPI. ROS Other: All systems not noted in ROS Statement are negative. Past Medical History Past Medical History: Asthma, GERD/Reflux Additional Past Medical History / Comment(s): vertigo, History of Any Multi-Drug Resistant Organisms: None Reported Past Surgical History: No Surgical Hx Reported Past Psychological History: Anxiety, Bipolar, Depression, PTSD Smoking Status: Never smoker Past Alcohol Use History: Rare Past Drug Use History: None Reported General Exam Limitations: no limitations General appearance: alert, in no apparent distress Head exam: Present: atraumatic, normocephalic, normal inspection Eye exam: Present: normal appearance, PERRL, EOMI. Absent: scleral icterus, conjunctival injection, periorbital swelling ENT exam: Present: normal exam, mucous membranes moist Neck exam: Present: normal inspection, full ROM. Absent: tenderness, meningismus, lymphadenopathy Respiratory exam: Present: normal lung sounds bilaterally. Absent: respiratory distress, wheezes, rales, rhonchi, stridor Cardiovascular Exam: Present: normal rhythm, tachycardia, normal heart sounds. Absent: systolic murmur, diastolic murmur, rubs, gallop, clicks, JVD GI/Abdominal exam: Present: soft, normal bowel sounds. Absent: distended, tenderness, guarding, rebound, rigid Extremities exam: Present: normal inspection, full ROM, normal capillary refill. Absent: tenderness, pedal edema, joint swelling, calf tenderness Back exam: Present: normal inspection. Absent: tenderness, CVA tenderness (R), CVA tenderness (L) Neurological exam: Present: alert, oriented X3, CN II-XII intact Psychiatric exam: Present: normal affect, normal mood Skin exam: Present: warm, dry, intact, normal color. Absent: rash Course Vital Signs 08/08/20 08/08/20 17:03 18:37 Temperature 103.0 F H 100.7 F H Pulse Rate 115 H 104 H Respiratory 18 Rate Blood Pressure 112/61 O2 Sat by Pulse 97 Oximetry - Reevaluation(s) Reevaluation #1: 08/08/20 18:36 Patient temp down to 100.4, heart rate 107. Awaiting labs. Patient requesting something to eat, nothing by mouth until d-dimer result. Time: 18:36 Medical Decision Making - Medical Decision Making Case discussed with Dr. Delarosa. Chest x-ray shows pulmonary interstitial infiltrates mid and lower lobe with edema and poor inspiratory effort. AST 76 aLT 56 likely related to fatty liver based on patient's obesity. D-dimer 0.46, CRP 37.0. Patient will be placed on prednisone 50 mg once a day for the next 5 days albuterol inhaler every 4 hours as needed and directed to get vitamin D, and zinc [id number]. - Lab Data Result diagrams: 08/08/20 17:25 08/08/20 17:25 Lab Results 08/08/20 08/08/20 08/08/20 Range/Units 17:25 17:25 17:25 WBC 6.7 (3.8-10.6) k/uL RBC 4.47 (3.80-5.40) m/uL Hgb 12.5 (11.4-16.0) gm/dL Hct 38.3 (34.0-46.0) % MCV 85.7 (80.0-100.0) fL MCH 27.9 (25.0-35.0) pg MCHC 32.5 (31.0-37.0) g/dL RDW 14.0 (11.5-15.5) % Plt Count 231 (150-450) k/uL MPV 7.6 Neutrophils % 69 % Lymphocytes % 19 % Monocytes % 10 % Eosinophils % 1 % Basophils % 0 % Neutrophils # 4.6 (1.3-7.7) k/uL Lymphocytes # 1.2 (1.0-4.8) k/uL Monocytes # 0.7 (0-1.0) k/uL Eosinophils # 0.1 (0-0.7) k/uL Basophils # 0.0 (0-0.2) k/uL PT 10.8 (9.0-12.0) sec INR 1.0 (<1.2) D-Dimer 0.46 (<0.60) mg/L FEU Sodium 140 (137-145) mmol/L Potassium 4.2 (3.5-5.1) mmol/L Chloride 103 (98-107) mmol/L Carbon Dioxide 29 (22-30) mmol/L Anion Gap 8 mmol/L BUN 10 (7-17) mg/dL Creatinine 0.69 (0.52-1.04) mg/dL Est GFR (CKD-EPI)AfAm >90 (>60 ml/min/1.73 sqM) Est GFR (CKD-EPI)NonAf >90 (>60 ml/min/1.73 sqM) Glucose 104 H (74-99) mg/dL Plasma Lactic Acid Patrick (0.7-2.0) mmol/L Calcium 8.7 (8.4-10.2) mg/dL Magnesium 2.0 (1.6-2.3) mg/dL Total Bilirubin 0.6 (0.2-1.3) mg/dL AST 76 H (14-36) U/L ALT 56 H (4-34) U/L Alkaline Phosphatase 56 (38-126) U/L C-Reactive Protein 37.0 H (<10.0) mg/L Total Protein 7.7 (6.3-8.2) g/dL Albumin 4.0 (3.5-5.0) g/dL 08/08/20 Range/Units 17:25 WBC (3.8-10.6) k/uL RBC (3.80-5.40) m/uL Hgb (11.4-16.0) gm/dL Hct (34.0-46.0) % MCV (80.0-100.0) fL MCH (25.0-35.0) pg MCHC (31.0-37.0) g/dL RDW (11.5-15.5) % Plt Count (150-450) k/uL MPV Neutrophils % % Lymphocytes % % Monocytes % % Eosinophils % % Basophils % % Neutrophils # (1.3-7.7) k/uL Lymphocytes # (1.0-4.8) k/uL Monocytes # (0-1.0) k/uL Eosinophils # (0-0.7) k/uL Basophils # (0-0.2) k/uL PT (9.0-12.0) sec INR (<1.2) D-Dimer (<0.60) mg/L FEU Sodium (137-145) mmol/L Potassium (3.5-5.1) mmol/L Chloride (98-107) mmol/L Carbon Dioxide (22-30) mmol/L Anion Gap mmol/L BUN (7-17) mg/dL Creatinine (0.52-1.04) mg/dL Est GFR (CKD-EPI)AfAm (>60 ml/min/1.73 sqM) Est GFR (CKD-EPI)NonAf (>60 ml/min/1.73 sqM) Glucose (74-99) mg/dL Plasma Lactic Acid Patrick 1.6 (0.7-2.0) mmol/L Calcium (8.4-10.2) mg/dL Magnesium (1.6-2.3) mg/dL Total Bilirubin (0.2-1.3) mg/dL AST (14-36) U/L ALT (4-34) U/L Alkaline Phosphatase (38-126) U/L C-Reactive Protein (<10.0) mg/L Total Protein (6.3-8.2) g/dL Albumin (3.5-5.0) g/dL - EKG Data EKG shows normal: sinus rhythm Rate: tachycardia (Sinus tach at 112, VA interval 0.16, QRS 0.86, QTC 439ms ) Disposition Clinical Impression: COVID-19 Disposition: HOME SELF-CARE Condition: Good Instructions (If sedation given, give patient instructions): Asthma (ED), Coronavirus Disease 2019 (COVID-19) Additional Instructions: Take prednisone as prescribed, use albuterol inhaler as needed. Take [id number] vitamin D, zinc, vitamin C and follow up with the primary doctor this week. Return if increasing shortness of breath. Prescriptions: predniSONE 50 mg PO DAILY #5 tab Albuterol Inhaler [Ventolin Hfa Inhaler] 2 puff INHALATION RT-QID 30 Days #1 puff Is patient prescribed a controlled substance at d/c from ED?: No Referrals: None,Stated [Primary Care Provider] - 1-2 days Time of Disposition: 19:00
[2020-08-08] MEDS ORDERED: methylPREDNISolone SOD SUCCI 125 MG/2 ML VIAL IV STA (17:26)
--- NOTE | 2020-08-08 18:12 | XR ---
EXAMINATION TYPE: XR chest 1V portable DATE OF EXAM: 08/08/2020 COMPARISON: 08/05/2020 HISTORY: Fever. Short of breath. TECHNIQUE: Single view FINDINGS: There is poor inspiration. There is some interstitial infiltrates in the mid and lower lung lovett. There are chest leads. IMPRESSION: Decreased inspiration compared to old exam. Increasing interstitial pulmonary infiltrates and edema compared to last exam. Normal heart.
[2020-08-08 18:37] VITALS: TEMP 100.7
[2020-08-08 18:41] LABS: D-Dimer 0.46 mg/L FEU (<0.60); Prothrombin Time 10.8 sec (9.0-12.0)
[2020-08-08 18:42] LABS: ALT 56 U/L (4-34); AST 76 U/L (14-36); African American GFR (CKD) >90 (>60 ml/min/1.73 sqM); Alkaline Phosphatase 56 U/L (38-126); Anion Gap 8 mmol/L; Blood Urea Nitrogen 10 mg/dL (7-17); Calcium 8.7 mg/dL (8.4-10.2); Carbon Dioxide 29 mmol/L (22-30); Chloride 103 mmol/L (98-107); Glucose 104 mg/dL (74-99); Non-African American GFR(CKD) >90 (>60 ml/min/1.73 sqM); Potassium 4.2 mmol/L (3.5-5.1); Sodium 140 mmol/L (137-145); Total Bilirubin 0.6 mg/dL (0.2-1.3); Total Protein 7.7 g/dL (6.3-8.2)
[2020-08-08 18:47] LABS: Basophils % (A) 0 %; Eosinophils # (A) 0.1 k/uL (0-0.7); Eosinophils % (A) 1 %; HCT 38.3 % (34.0-46.0); HGB 12.5 gm/dL (11.4-16.0); Lymphocytes # (A) 1.2 k/uL (1.0-4.8); Lymphocytes % (A) 19 %; MCH 27.9 pg (25.0-35.0); MCHC 32.5 g/dL (31.0-37.0); MCV 85.7 fL (80.0-100.0); Mean Platelet Volume 7.6; Monocytes # (A) 0.7 k/uL (0-1.0); Monocytes % (A) 10 %; Neutrophils # (A) 4.6 k/uL (1.3-7.7); Neutrophils % (A) 69 %; Platelet Count 231 k/uL (150-450); RBC 4.47 m/uL (3.80-5.40); WBC 6.7 k/uL (3.8-10.6)
[2020-08-08 19:19] VITALS: PULSE 107; RESP 16
[2020-08-08 19:20] VITALS: BP 102/44
== END 2020-08-08 19:25 | disposition home or self-care (01) ==
LOC: EC 16:46
DX: U07.1 COVID-19 (principal); R00.0 Tachycardia, unspecified; Z91.018 Allergy to other foods
CPT/HCPCS: 36415; 94640; 93005; 85379; 80053; 82728; 83605; 83735; 85025; 85610; 86140; 84145; 71045; 99285; 96374; 96361; J2930

== ENCOUNTER 2020-08-25 05:23 | Emergency (ER) | payer OTHER ==
[2020-08-25 05:38] VITALS: BP 103/67; TEMP 98.9
[2020-08-25 06:42] VITALS: PULSE 101; RESP 16
[2020-08-25] MEDS ORDERED: SODIUM CHLORIDE 0.9% 1,000 ML IV STA (06:46)
--- NOTE | 2020-08-25 06:50 | ED ---
General Adult HPI - General Chief complaint: Arrhythmia/Palpitations Stated complaint: Palpitations Source: patient Mode of arrival: ambulatory Limitations: no limitations - History of Present Illness Initial comments: 20-year-old female with a past medical history of asthma, GERD, recent Covid about a month and a half ago presents for palpitations. Patient states she has had heart palpitations ever since 2016 on and off. However today the palpitations are a little bit worse than normal. States this started around 10 PM last night and have persisted. States they come and go. Patient denies chest pain or shortness of breath. Patient states she has anxiety and this ca uses her anxiety to be worse.patient has seen a packer in another town for this in the past but she states they did not know exactly what was going on to cause these. States she did a 2 hour monitor however they did not see any problems. Patient has no other complaints at this time including shortness of breath, chest pain, abdominal pain, nausea or vomiting, headache, or visual changes. - Related Data Home Medications Medication Instructions Recorded Confirmed Albuterol Inhaler [Ventolin Hfa 2 puff INHALATION RT-QID PRN 08/25/20 08/25/20 Inhaler] Pantoprazole Sodium [Protonix] 40 mg PO DAILY 08/25/20 08/25/20 Allergies Allergy/AdvReac Type Severity Reaction Status Date / Time gluten AdvReac Nausea & Verified 08/25/20 09:00 Vomiting & Diarrhea Review of Systems ROS Statement: Those systems with pertinent positive or pertinent negative responses have been documented in the HPI. ROS Other: All systems not noted in ROS Statement are negative. Past Medical History Past Medical History: Asthma, GERD/Reflux Additional Past Medical History / Comment(s): vertigo, History of Any Multi-Drug Resistant Organisms: None Reported Past Surgical History: No Surgical Hx Reported Past Psychological History: Anxiety, Bipolar, Depression, PTSD Smoking Status: Never smoker Past Alcohol Use History: Rare Past Drug Use History: None Reported General Exam Limitations: no limitations General appearance: alert, in no apparent distress Head exam: Present: atraumatic, normocephalic, normal inspection Eye exam: Present: normal appearance, PERRL, EOMI. Absent: scleral icterus, conjunctival injection, periorbital swelling ENT exam: Present: normal exam, mucous membranes moist Neck exam: Present: normal inspection, full ROM. Absent: tenderness, meningism us, lymphadenopathy Respiratory exam: Present: normal lung sounds bilaterally. Absent: respiratory distress, wheezes, rales, rhonchi, stridor Cardiovascular Exam: Present: tachycardia, normal heart sounds. Absent: systolic murmur, diastolic murmur, rubs, gallop, clicks GI/Abdominal exam: Present: soft, normal bowel sounds. Absent: distended, tenderness, guarding, rebound, rigid Course Vital Signs 08/25/20 08/25/20 05:36 06:41 Temperature 98.9 F Pulse Rate 108 H 101 H Respiratory 18 16 Rate Blood Pressure 103/67 O2 Sat by Pulse 98 97 Oximetry EKG Findings - EKG Comments: EKG Findings:: NSR, vent rate 100, NC int 174, QTc 441 Medical Decision Making - Medical Decision Making Vitals are stable. EKG shows a normal sinus rhythm. CBC CMP unremarkable. Urinalysis contaminated. TSH is normal. D-dimer was slightly elevated. CTA showed no evidence of pulmonary embolism at this time. Patient is stable for discharge home however recommend she follow up with packer for possible Holter monitor and further evaluation. If she has any worsening symptoms or syncopal episode she will return immediately to the emergency room. - Lab Data Result diagrams: 08/25/20 07:30 08/25/20 07:30 Lab Results 08/25/20 08/25/20 08/25/20 Range/Units 07:30 07:30 07:30 WBC 9.9 (3.8-10.6) k/uL RBC 4.14 (3.80-5.40) m/uL Hgb 11.9 (11.4-16.0) gm/dL Hct 35.6 (34.0-46.0) % MCV 86.1 (80.0-100.0) fL MCH 28.8 (25.0-35.0) pg MCHC 33.5 (31.0-37.0) g/dL RDW 14.9 (11.5-15.5) % Plt Count 319 (150-450) k/uL MPV 6.7 Neutrophils % 72 % Lymphocytes % 18 % Monocytes % 7 % Eosinophils % 1 % Basophils % 0 % Neutrophils # 7.1 (1.3-7.7) k/uL Lymphocytes # 1.8 (1.0-4.8) k/uL Monocytes # 0.7 (0-1.0) k/uL Eosinophils # 0.1 (0-0.7) k/uL Basophils # 0.0 (0-0.2) k/uL PT 9.4 (9.0-12.0) sec INR 0.9 (<1.2) APTT 25.6 (22.0-30.0) sec D-Dimer 0.69 H (<0.60) mg/L FEU Sodium 138 (137-145) mmol/L Potassium 4.6 (3.5-5.1) mmol/L Chloride 106 (98-107) mmol/L Carbon Dioxide 25 (22-30) mmol/L Anion Gap 7 mmol/L BUN 14 (7-17) mg/dL Creatinine 0.64 (0.52-1.04) mg/dL Est GFR (CKD-EPI)AfAm >90 (>60 ml/min/1.73 sqM) Est GFR (CKD-EPI)NonAf >90 (>60 ml/min/1.73 sqM) Glucose 105 H (74-99) mg/dL Calcium 9.9 (8.4-10.2) mg/dL Magnesium 2.0 (1.6-2.3) mg/dL Total Bilirubin 0.6 (0.2-1.3) mg/dL AST 26 (14-36) U/L ALT 32 (4-34) U/L Alkaline Phosphatase 80 (38-126) U/L Troponin I (0.000-0.034) ng/mL Total Protein 7.4 (6.3-8.2) g/dL Albumin 4.0 (3.5-5.0) g/dL TSH 2.340 (0.465-4.680) mIU/L Urine Color Urine Appearance (Clear) Urine pH (5.0-8.0) Ur Specific [place] (1.001-1.035) Urine Protein (Negative) Urine Glucose (UA) (Negative) Urine Ketones (Negative) Urine Blood (Negative) Urine Nitrite (Negative) Urine Bilirubin (Negative) Urine Urobilinogen (<2.0) mg/dL Ur Leukocyte Esterase (Negative) Urine RBC (0-5) /hpf Urine WBC (0-5) /hpf Ur Squamous Epith Cells (0-4) /hpf Calcium Oxalate Crystal (None) /hpf Amorphous Sediment (None) /hpf Urine Bacteria (None) /hpf Urine Mucus (None) /hpf Urine HCG, Qual (Not Detectd) 08/25/20 08/25/20 08/25/20 Range/Units 07:30 07:30 07:30 WBC (3.8-10.6) k/uL RBC (3.80-5.40) m/uL Hgb (11.4-16.0) gm/dL Hct (34.0-46.0) % MCV (80.0-100.0) fL MCH (25.0-35.0) pg MCHC (31.0-37.0) g/dL RDW (11.5-15.5) % Plt Count (150-450) k/uL MPV Neutrophils % % Lymphocytes % % Monocytes % % Eosinophils % % Basophils % % Neutrophils # (1.3-7.7) k/uL Lymphocytes # (1.0-4.8) k/uL Monocytes # (0-1.0) k/uL Eosinophils # (0-0.7) k/uL Basophils # (0-0.2) k/uL PT (9.0-12.0) sec INR (<1.2) APTT (22.0-30.0) sec D-Dimer (<0.60) mg/L FEU Sodium (137-145) mmol/L Potassium (3.5-5.1) mmol/L Chloride (98-107) mmol/L Carbon Dioxide (22-30) mmol/L Anion Gap mmol/L BUN (7-17) mg/dL Creatinine (0.52-1.04) mg/dL Est GFR (CKD-EPI)AfAm (>60 ml/min/1.73 sqM) Est GFR (CKD-EPI)NonAf (>60 ml/min/1.73 sqM) Glucose (74-99) mg/dL Calcium (8.4-10.2) mg/dL Magnesium (1.6-2.3) mg/dL Total Bilirubin (0.2-1.3) mg/dL AST (14-36) U/L ALT (4-34) U/L Alkaline Phosphatase (38-126) U/L Troponin I <0.012 (0.000-0.034) ng/mL Total Protein (6.3-8.2) g/dL Albumin (3.5-5.0) g/dL TSH (0.465-4.680) mIU/L Urine Color Yellow Urine Appearance Cloudy H (Clear) Urine pH 6.5 (5.0-8.0) Ur Specific [place] 1.020 (1.001-1.035) Urine Protein Negative (Negative) Urine Glucose (UA) Negative (Negative) Urine Ketones Negative (Negative) Urine Blood Negative (Negative) Urine Nitrite Negative (Negative) Urine Bilirubin Negative (Negative) Urine Urobilinogen <2.0 (<2.0) mg/dL Ur Leukocyte Esterase Negative (Negative) Urine RBC 3 (0-5) /hpf Urine WBC 5 (0-5) /hpf Ur Squamous Epith Cells 9 H (0-4) /hpf Calcium Oxalate Crystal Occasional H (None) /hpf Amorphous Sediment Moderate H (None) /hpf Urine Bacteria Rare H (None) /hpf Urine Mucus Rare H (None) /hpf Urine HCG, Qual Not Detected (Not Detectd) Disposition Clinical Impression: Palpitations Disposition: HOME SELF-CARE Condition: Good Instructions (If sedation given, give patient instructions): Heart Palpitations (ED) Additional Instructions: Please follow up with primary care in 1-2 days. Follow up with cardiology as well. Return to the emergency room for any worsening symptoms. Is patient prescribed a controlled substance at d/c from ED?: No Referrals: Lorne Garcia [STAFF PHYSICIAN] - 1-2 days Yobany Johnson MD [STAFF PHYSICIAN] - 1-2 days Time of Disposition: 10:34
--- NOTE | 2020-08-25 08:15 | XR ---
EXAMINATION TYPE: XR chest 2V DATE OF EXAM: 08/25/2020 COMPARISON: 08/08/2020 HISTORY: Chest pain TECHNIQUE: Frontal and lateral views of the chest are obtained. FINDINGS: There Is much improved aeration throughout the lung lovett relative to the prior study. Mild residual patchy density right medial lung base. No evidence for pneumothorax. No pleural effusion. The cardiac silhouette size is within normal limits. The osseous structures are grossly intact. IMPRESSION: 1. There Is much improved aeration throughout the lung lovett relative to the prior study. Mild resi dual patchy density right medial lung base.
[2020-08-25 08:19] LABS: Basophils % (A) 0 %; Eosinophils # (A) 0.1 k/uL (0-0.7); Eosinophils % (A) 1 %; HCT 35.6 % (34.0-46.0); HGB 11.9 gm/dL (11.4-16.0); Lymphocytes # (A) 1.8 k/uL (1.0-4.8); Lymphocytes % (A) 18 %; MCH 28.8 pg (25.0-35.0); MCHC 33.5 g/dL (31.0-37.0); MCV 86.1 fL (80.0-100.0); Mean Platelet Volume 6.7; Monocytes # (A) 0.7 k/uL (0-1.0); Monocytes % (A) 7 %; Neutrophils # (A) 7.1 k/uL (1.3-7.7); Neutrophils % (A) 72 %; Platelet Count 319 k/uL (150-450); RBC 4.14 m/uL (3.80-5.40); RDW 14.9 % (11.5-15.5); WBC 9.9 k/uL (3.8-10.6)
[2020-08-25 08:37] LABS: ALT 32 U/L (4-34); AST 26 U/L (14-36); African American GFR (CKD) >90 (>60 ml/min/1.73 sqM); Alkaline Phosphatase 80 U/L (38-126); Anion Gap 7 mmol/L; Blood Urea Nitrogen 14 mg/dL (7-17); Calcium 9.9 mg/dL (8.4-10.2); Carbon Dioxide 25 mmol/L (22-30); Chloride 106 mmol/L (98-107); Glucose 105 mg/dL (74-99); Non-African American GFR(CKD) >90 (>60 ml/min/1.73 sqM); Potassium 4.6 mmol/L (3.5-5.1); Sodium 138 mmol/L (137-145); Total Bilirubin 0.6 mg/dL (0.2-1.3); Total Protein 7.4 g/dL (6.3-8.2)
[2020-08-25 08:40] LABS: INR 0.9 (<1.2); Partial Thromboplastin Time 25.6 sec (22.0-30.0); Prothrombin Time 9.4 sec (9.0-12.0)
[2020-08-25 08:59] LABS: D-Dimer 0.69 mg/L FEU (<0.60)
[2020-08-25 09:05] LABS: Amorphous Sediment,Urine Moderate /hpf; Appearance,Urine Cloudy (Clear); Bacteria,Urine Rare /hpf; Bilirubin,Urine Negative (Negative); Blood,Urine Negative (Negative); Calcium Oxalate Crystals,Urine Occasional /hpf; Color,Urine Yellow; Glucose,Urine (UA) Negative (Negative); Ketones,Urine Negative (Negative); Leukocyte Esterase,Urine Negative (Negative); Mucus,Urine Rare /hpf; Nitrite,Urine Negative (Negative); PH, Urine 6.5 (5.0-8.0); Protein,Urine Negative (Negative); RBC,Urine 3 /hpf (0-5); Squamous Epithelial Cell,Urine 9 /hpf (0-4); Urobilinogen,Urine <2.0 mg/dL (<2.0); WBC,Urine 5 /hpf (0-5)
[2020-08-25] MEDS ORDERED: ONDANSETRON 4 MG/2 ML VIAL IVP STA (10:01)
--- NOTE | 2020-08-25 10:09 | CT ---
The EXAMINATION TYPE: CT chest angio for PE DATE OF EXAM: 08/25/2020 COMPARISON: None HISTORY: palpitations CT DLP: 932.6 mGycm CONTRAST: CT chest with contrast and 3D reconstruction with MIP imaging is performed with IV Contrast, patient injected with 100 mL of Isovue 370. Contrast-enhanced CT of the chest was performed through the course of the pulmonary arteries with garland g and mediastinal window settings submitted. 3D reconstruction with MIP imaging was also performed. PULMONARY ARTERIES: The pulmonary arteries and their major tributaries are patent. I do not see nataliia dence for sizable filling defect to suggest pulmonary embolic process. LUNGS: Vague scattered groundglass infiltrates are noted. No evidence for atelectasis. No pulmonary nodule or mass is detected. No pleural effusion. MEDIASTINUM: Thoracic aorta is of normal caliber,however, evaluation is limited given timing of the contrast bolus. If there is concern for thoracic aortic pathology consider FORTINO. Correlate clinicall y . The heart is not enlarged. No evidence for mediastinal mass. No mediastinal lymph nodes greater than 1cm. HILAR STRUCTURES: No evidence for mass. No hilar lymph nodes greater than 1 cm. UPPER ABDOMEN: No significant abnormality is seen. IMPRESSION: 1. No evidence for Pulmonary embolism at this time.
== END 2020-08-25 10:47 | disposition home or self-care (01) ==
LOC: EC 05:23
DX: R00.2 Palpitations (principal); R79.89 Other specified abnormal findings of blood chemistry; J45.909 Unspecified asthma, uncomplicated; K21.9 Gastro-esophageal reflux disease without esophagitis; Z79.51 Long term (current) use of inhaled steroids; Z79.899 Other long term (current) drug therapy; Z91.048 Other nonmedicinal substance allergy status; Z91.018 Allergy to other foods
CPT/HCPCS: 36415; 93005; 85379; 80053; 84443; 83735; 84484; 85025; 85610; 85730; 81001; 81025; 71046; 71275; 99285; 96374; 96361; J2405; Q9967

== ENCOUNTER 2020-08-28 07:04 | Emergency (ER) | payer OTHER ==
[2020-08-28 07:11] VITALS: BP 126/77; PULSE 92; RESP 18; TEMP 98.4
[2020-08-28] MEDS ORDERED: ONDANSETRON ODT 4 MG TAB PO STA (07:27)
--- NOTE | 2020-08-28 07:32 | ED ---
General Adult HPI - General Chief complaint: Nausea/Vomiting/Diarrhea Stated complaint: Vomiting Blood Time Seen by Provider: 08/28/20 07:05 Source: patient, RN notes reviewed, old records reviewed Mode of arrival: ambulatory Limitations: no limitations - History of Present Illness Initial comments: This is a 20-year-old female presents emergency Department stating she was just recently seen for palpitations and occasionally she gets them but she has not had any today. Patient states this morning she got up and vomited up what looked to be water and she then vomited up something that looked reddish in color she thought it might be blood. Patient states she had something similar occur last night and she thought maybe it was blood as well. Patient denies any abdominal pain patient denies any epigastric pain. Patient states she has a history of reflux. Patient denies any fever chills or cough. She denies any chest pain shortness breath or difficulty breathing. He denies headache patient denies numbness weakness. Patient states she has a history of anxiety but has been off her anxiety medication she thought she might be . - Related Data Home Medications Medication Instructions Recorded Confirmed Albuterol Inhaler [Ventolin Hfa 2 puff INHALATION RT-QID PRN 08/25/20 08/25/20 Inhaler] Pantoprazole Sodium [Protonix] 40 mg PO DAILY 08/25/20 08/25/20 Previous Rx's Medication Instructions Recorded Ondansetron [Zofran] 4 mg PO Q8HR PRN #10 tab 08/28/20 Allergies Allergy/AdvReac Type Severity Reaction Status Date / Time gluten AdvReac Nausea & Verified 08/28/20 07:07 Vomiting & Diarrhea Review of Systems ROS Statement: Those systems with pertinent positive or pertinent negative responses have been documented in the HPI. ROS Other: All systems not noted in ROS Statement are negative. Past Medical History Past Medical History: Asthma, GERD/Reflux Additional Past Medical History / Comment(s): vertigo, History of Any Multi-Drug Resistant Organisms: None Reported Past Surgical History: No Surgical Hx Reported Past Psychological History: Anxiety, Bipolar, Depression, PTSD Smoking Status: Never smoker Past Alcohol Use History: Rare Past Drug Use History: None Reported General Exam - General Exam Comments Initial Comments: GENERAL: Patient is well-developed and well-nourished. Patient is nontoxic and well- hydrated and is in no acute distress. ENT: Neck is soft and supple. No significant lymphadenopathy is noted. Oropharynx is clear. Moist mucous membranes. Neck has full range of motion without eliciting any pain. EYES: The sclera were anicteric and conjunctiva were pink and moist. Extraocular movements were intact and pupils were equal round and reactive to light. Eyelids were unremarkable. PULMONARY: Unlabored respirations. Good breath sounds bilaterally. No audible rales rhonchi or wheezing was noted. CARDIOVASCULAR: There is a regular rate and rhythm without any murmurs gallops or rubs. Patient had no irregular heartbeats when I listen to her. ABDOMEN: Soft and nontender with normal bowel sounds. SKIN: Skin is clear with no lesions or rashes and otherwise unremarkable. NEUROLOGIC: Patient is alert and oriented x3. Cranial nerves II through XII are grossly intact. Motor and sensory are also intact. Normal speech, volume and content. Symmetrical smile. MUSCULOSKELETAL: Normal extremities with adequate strength and full range of motion. No lower extremity swelling or edema. No calf tenderness. LYMPHATICS: No significant lymphadenopathy is noted PSYCHIATRIC: Patient is mildly anxious Limitations: no limitations Course Vital Signs 08/28/20 07:07 Temperature 98.4 F Pulse Rate 92 Respiratory 18 Rate Blood Pressure 126/77 O2 Sat by Pulse 99 Oximetry Disposition Clinical Impression: Nausea and vomiting Disposition: HOME SELF-CARE Instructions (If sedation given, give patient instructions): Acute Nausea and Vomiting (ED) Additional Instructions: Patient should follow-up with her primary medical care doctor and a GI doctor to get a possible endoscopy and a Holter monitor. Patient should take her Prilosec twice a day Prescriptions: Ondansetron [Zofran] 4 mg PO Q8HR PRN #10 tab PRN Reason: Nausea And Vomiting Is patient prescribed a controlled substance at d/c from ED?: No Referrals: None,Stated [Primary Care Provider] - 1-2 days Time of Disposition: 07:31
== END 2020-08-28 07:41 | disposition home or self-care (01) ==
LOC: EC 07:04
DX: R11.2 Nausea with vomiting, unspecified (principal); J45.909 Unspecified asthma, uncomplicated; K21.9 Gastro-esophageal reflux disease without esophagitis; Z79.899 Other long term (current) drug therapy; F41.9 Anxiety disorder, unspecified; F32.9 Major depressive disorder, single episode, unspecified
CPT/HCPCS: 99283

== ENCOUNTER 2020-08-31 18:36 | Emergency (ER) | payer OTHER ==
[2020-08-31 19:25] VITALS: BP 138/86; PULSE 77; RESP 18; TEMP 97.9
[2020-08-31] MEDS ORDERED: MORPHINE SULFATE 4 MG/ML SYRINGE IV STA (21:09)
[2020-08-31] MEDS ORDERED: SODIUM CHLORIDE 0.9% 1,000 ML IV STA (21:09)
[2020-08-31] MEDS ORDERED: diphenhydrAMINE 50 MG/ML 1 ML VIAL IVP STA (21:09)
[2020-08-31] MEDS ORDERED: ONDANSETRON 4 MG/2 ML VIAL IVP STA (21:09)
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
== END 2020-08-31 23:16 | disposition home or self-care (01) ==
LOC: EC 18:36
DX: G44.209 Tension-type headache, unspecified, not intractable (principal); J45.909 Unspecified asthma, uncomplicated; K21.9 Gastro-esophageal reflux disease without esophagitis; F41.9 Anxiety disorder, unspecified; F32.9 Major depressive disorder, single episode, unspecified
CPT/HCPCS: 99283; 96374; 96375; 96361; J2270; J1200; J2405

== ENCOUNTER 2020-09-01 04:00 | Observation (INO) | payer OTHER ==
[2020-09-01 04:18] VITALS: RESP 18
--- NOTE | 2020-09-01 05:13 | ED ---
Recheck HPI - General Chief Complaint: Headache Stated Complaint: headache revisit Time Seen by Provider: 09/01/20 05:00 Source: patient Mode of arrival: ambulatory Limitations: no limitations - Related Data Home Medications Medication Instructions Recorded Confirmed Albuterol Inhaler [Ventolin Hfa 2 puff INHALATION RT-QID PRN 08/25/20 08/31/20 Inhaler] Pantoprazole Sodium [Protonix] 40 mg PO DAILY 08/25/20 08/31/20 Acetaminophen Tab [Tylenol Tab] 1,000 mg PO Q6HR PRN 08/31/20 08/31/20 Escitalopram [Lexapro] 10 mg PO DAILY 08/31/20 08/31/20 hydrOXYzine HCL [Atarax] 10 mg PO TID PRN 08/31/20 08/31/20 Allergies Allergy/AdvReac Type Severity Reaction Status Date / Time gluten AdvReac Nausea & Verified 09/01/20 04:18 Vomiting & Diarrhea Review of Systems ROS Statement: Those systems with pertinent positive or pertinent negative responses have been documented in the HPI. ROS Other: All systems not noted in ROS Statement are negative. Past Medical History Past Medical History: Asthma, GERD/Reflux Additional Past Medical History / Comment(s): vertigo, History of Any Multi-Drug Resistant Organisms: None Reported Past Surgical History: No Surgical Hx Reported Past Psychological History: Anxiety, Bipolar, Depression, PTSD Smoking Status: Never smoker Past Alcohol Use History: Rare Past Drug Use History: None Reported General Exam Limitations: no limitations Course Vital Signs 09/01/20 04:11 Temperature 97.9 F Pulse Rate 81 Respiratory 18 Rate Blood Pressure 117/77 O2 Sat by Pulse 96 Oximetry Disposition Clinical Impression: Migraine headache, Headache Narrative: ro Pseudotumor Cerebri Disposition: ADMITTED IP TO THIS [facility] Condition: Good Instructions (If sedation given, give patient instructions): Acute Headache (ED) Is patient prescribed a controlled substance at d/c from ED?: No Referrals: None,Stated [Primary Care Provider] - 1-2 days
[2020-09-01] MEDS ORDERED: ETODOLAC 400 MG TAB PO STA (05:22)
[2020-09-01] MEDS ORDERED: diphenhydrAMINE 50 MG CAP PO STA (05:22)
[2020-09-01] MEDS ORDERED: PROCHLORPERAZINE 10 MG TAB PO STA (05:22)
--- NOTE | 2020-09-01 05:53 | CT ---
EXAM: CT Head Without Intravenous Contrast CLINICAL HISTORY: migraine TECHNIQUE: Axial computed tomography images of the head/brain without intravenous contrast. CTDI is 49.27 mGy and DLP is 1188.4 mGy-cm. This CT exam was performed using one or more of the following dose reduction techniques: automated exposure control, adjustment of the mA and/or kV according to patient size, and/or use of iterative reconstruction technique. Coronal and sagittal reformatted images were created and reviewed. COMPARISON: 01/30/20 FINDINGS: Brain: Unremarkable. No hemorrhage. No significant white matter disease. No edema. Ventricles: Unremarkable. No ventriculomegaly. Bones/joints: Unremarkable. No acute fracture. Soft tissues: Unremarkable. Sinuses: Unremarkable as visualized. No acute sinusitis. Mastoid air cells: Unremarkable as visualized. No mastoid effusion. IMPRESSION: No acute intracranial findings or substantial change.
[2020-09-01] MEDS ORDERED: PROCHLORPERAZINE INJ 10 MG/2 ML VIAL IVP PRN (06:36)
[2020-09-01] MEDS ORDERED: KETOROLAC 15 MG/ML 1 ML VIAL IVP STA (06:36)
[2020-09-01] MEDS ORDERED: diphenhydrAMINE 50 MG/ML 1 ML VIAL IVP STA (06:36)
[2020-09-01] MEDS ORDERED: diphenhydrAMINE 50 MG/ML 1 ML VIAL IVP PRN (06:36)
[2020-09-01] MEDS ORDERED: SODIUM CHLORIDE 0.9% 1,000 ML IV ONE (06:36)
[2020-09-01] MEDS ORDERED: PROCHLORPERAZINE INJ 10 MG/2 ML VIAL IVP STA (06:36)
[2020-09-01] MEDS: KETOROLAC 15 MG/ML 1 ML VIAL IVP SCH ×2 (09:37→16:57)
[2020-09-01] MEDS ORDERED: ALBUTEROL HFA INHALER INHALATION PRN (09:52)
[2020-09-01] MEDS ORDERED: ACETAMINOPHEN TAB 500 MG TAB PO PRN (09:52)
[2020-09-01] MEDS ORDERED: hydrOXYzine HCL 10 MG TAB PO PRN (09:52)
[2020-09-01] MEDS ORDERED: ESCITALOPRAM 10 MG TAB PO SCH (10:00)
[2020-09-01] MEDS ORDERED: PANTOPRAZOLE 40 MG TABLET PO SCH (10:00)
[2020-09-01 10:50] VITALS: TEMP 97
[2020-09-01] MEDS ORDERED: GABAPENTIN 100 MG CAP PO PRN (12:34)
--- NOTE | 2020-09-01 12:36 | P.CNNES ---
History of Present Illness Consult date: 09/01/20 Requesting physician: Luís Calero Reason for Consult: headache History of Present Illness: This is 20-year-old woman with bipolar, depression, anxiety that presented to the emergency department for headache. Patient stated that she's been having headache for the last 4 days. The headache is holocephalic, etc. throbbing, sharp headaches. They're constant and the pain is 10 over 10. She does have photophobia but denies any photophobia. Has nausea but denies any vomiting. Yesterday while she was in the hospital she had a brief episode where she had blurred vision of both eyes. She denies of any focal weakness, numbness, difficulty getting her words out. Denies of any head trauma. She had a similar presentation in 2016 but does not recall the workup. Currently her headache is resolved and she is a symptom-free. She denies being on control pill. Denies any further blurry vision. Denies any tobacco use, alcohol use, any pop use or any caffeinated drinks. She does not recall being diagnosed with migraines. She does have history of anxiety, PTSD bipolar and GERD. Workup in the hospital consisted of: [place] signs: His blood pressure of 117/77, heart rate of 81, respiratory of 18, temperature of 97.9 Fahrenheit oral and pulse ox of 96% room air. CT of the head is reported as no acute intracranial finding or substantial change. In the hospital she seized Benadryl twice, Toradol once methylprednisone 250 mg once Compazine twice. Review of Systems Review of system: The 12 point system was reviewed and apparent positive and negative per HPI. Past Medical History Past Medical History: Asthma, GERD/Reflux Additional Past Medical History / Comment(s): vertigo, History of Any Multi-Drug Resistant Organisms: None Reported Past Surgical History: No Surgical Hx Reported Additional Past Surgical History / Comment(s): EGD, wisdom teeth extractions. Past Anesthesia/Blood Transfusion Reactions: No Reported Reaction Smoking Status: Never smoker - Past Family History Father Additional Family Medical History / Comment(s): Anxiety, depression, bipolar, cholecystectomy Mother Family Medical History: Thyroid Disorder Additional Family Medical History / Comment(s): Anxiety, depression. Medications and Allergies Home Medications Medication Instructions Recorded Confirmed Type Albuterol Inhaler [Ventolin Hfa 2 puff INHALATION RT-QID PRN 08/25/20 09/01/20 History Inhaler] Pantoprazole Sodium [Protonix] 40 mg PO DAILY 08/25/20 09/01/20 History Acetaminophen Tab [Tylenol Tab] 1,000 mg PO Q6HR PRN 08/31/20 09/01/20 History Escitalopram [Lexapro] 10 mg PO DAILY 08/31/20 09/01/20 History hydrOXYzine HCL [Atarax] 10 mg PO TID PRN 08/31/20 09/01/20 History Allergies Allergy/AdvReac Type Severity Reaction Status Date / Time gluten AdvReac Nausea & Verified 09/01/20 06:55 Vomiting & Diarrhea Physical Examination - Vital Signs Vital Signs: Vital Signs Temp Pulse Pulse Resp BP BP Pulse Ox 09/01/20 08:15 97 F L 79 18 128/60 98 09/01/20 08:00 98.0 F 09/01/20 07:16 65 18 113/54 98 09/01/20 04:11 97.9 F 81 18 117/77 96 Intake and Output 08/31/20 09/01/20 09/01/20 22:59 06:59 14:59 Other: Weight 157.85 kg 157.85 kg GENERAL: The patient is lying in bed and is not in acute distress. CHEST: The heart rate is regular rate rhythm. No murmurs to auscultation. No carotid bruit bilaterally. LUNG: Clear to auscultation bilaterally no wheezing noted throughout. Not labored breathing. ABDOMEN/GI: Bowel sounds present in all 4 quadrants. No tenderness to palpation throughout. NEUROLOGICAL: Higher mental function: The patient is awake, alert, oriented to self, place and time. Patient is following commands. No aphasia and no neglect. Cranial nerves: The pupils are round, equal and reactive to light and accommodation. Visual lovett are full to confrontation throughout. Extraocular movement is intact no nystagmus is noted. Facial sensation is normal to touch throughout. The facial strength is normal throughout. Hearing is normal bilat erally to hand rub. Tongue is midline and moved [id number] without any difficulty. No dysarthria is noted. Shoulder shrug is normal bilaterally. Motor: The strength is 5 over 5 throughout. Normal tone and bulk. Cerebellum: Normal finger to nose heel to chin bilaterally. Sensation: Sensation is normal to touch throughout. Reflexes (right/left): 2+ throughout. Plantars are downgoing bilaterally. Results [place] virus PCR was not detected Assessment and Plan Assessment: Cephalgia: Seem migrainous. Cannot rule out pseudotumor cerebri (especially since patient is obese and had blurry vision) Anxiety PTSD Bipolar GERD Morbid obesity Plan: Patient received migraine cocktail in the ED. I notified the patient would like to get MRI of the brain as well as a lumbar puncture and the patient stated that the she does want to get as an inpatient was to get as an outpatient. I notified of the MRI of the brain as well as lumbar puncture is just to rule out pseudotumor cerebri or any intracranial pathology contributing to her headache. I started the patient on gabapentin 100 mg 1 tablet twice a day when necessary for abortive for headaches. I recommended the patient to be on riboflavin 400 mg daily which is the used as a headache prophylaxis and migraines. We don't have riboflavin as an inpatient so the patient needs to get as an outpatient. Patient needs to follow-up with a neurologist within 1-2 weeks as an outpatient. I notified her again the numbness is steady of her follow-up with a neurologist and getting workup as mentioned above. There is no further neurological workup needed. Thank you for the consultation. Tan Lombardi MD Neuro-Hospitalist Time with Patient: Greater than 30
[2020-09-01 15:09] VITALS: BP 117/64; PULSE 69
--- NOTE | 2020-09-01 15:51 | P.HPIM ---
History of Present Illness H&P Date: 09/01/20 Chief Complaint: Headache Patient is a 20-year-old female with a known history of asthma, GERD, anxiety/depression, bipolar disorder, PTSD and morbid obesity with BMI 59.7 came to ER with the complaints of headache and nausea for the past 4 days and unable to tolerate oral diet. She has been having sharp headaches, 10 out of 10 in severity. Associated with nausea and no episodes of vomiting. Denied any blurry vision currently. Denied any focal weakness.. Denied any head trauma or recent illnesses. No fever no chills. No neck stiffness or leg swelling. Denied any recent travel. Patient states that she had similar headaches in 2016 which was resolved. On admission blood pressure 117/77, pulse 81 respiration 18 and pulse ox 96% on room air CT head showed no acute intracranial findings are substantial changes. CBC, CMP and TSH level done on 08/25/2020 was reviewed. Review of Systems Constitutional: Patient denies any fever or chills . No generalized weakness or weight loss. Abdomen: Patient denied nausea vomiting and diarrhea and abdominal pain. Cardiovascular: Patient denies any chest pain or short of breath no palpitations. Respiratory: patient denied any cough is from production. No shortness of maria guadalupe ath Neurologic: Patient denied any numbness or tingling . Patient complains of headache. Musculoskeletal: Patient denies any complaints of joint swelling or deformity. Skin: Negative Psychiatric: Negative Endocrine: No heat or cold intolerance. No recent weight gain. Genitourinary: No dysuria or hematuria. All other 14 point ROS negative except the above Past Medical History Past Medical History: Asthma, GERD/Reflux Additional Past Medical History / Comment(s): vertigo, History of Any Multi-Drug Resistant Organisms: None Reported Past Surgical History: No Surgical Hx Reported Past Psychological History: Anxiety, Bipolar, Depression, PTSD Smoking Status: Never smoker Past Alcohol Use History: Rare Past Drug Use History: None Reported - Past Family History Father Additional Family Medical History / Comment(s): Anxiety, depression, bipolar, cholecystectomy Mother Family Medical History: Thyroid Disorder Additional Family Medical History / Comment(s): Anxiety, depression. Medications and Allergies Home Medications Medication Instructions Recorded Confirmed Type Albuterol Inhaler [Ventolin Hfa 2 puff INHALATION RT-QID PRN 08/25/20 09/01/20 History Inhaler] Pantoprazole Sodium [Protonix] 40 mg PO DAILY 08/25/20 09/01/20 History Acetaminophen Tab [Tylenol Tab] 1,000 mg PO Q6HR PRN 08/31/20 09/01/20 History Escitalopram [Lexapro] 10 mg PO DAILY 08/31/20 09/01/20 History hydrOXYzine HCL [Atarax] 10 mg PO TID PRN 08/31/20 09/01/20 History Allergies Allergy/AdvReac Type Severity Reaction Status Date / Time gluten AdvReac Nausea & Verified 09/01/20 06:55 Vomiting & Diarrhea Physical Exam Vitals: Vital Signs Temp Pulse Resp BP Pulse Ox 09/01/20 08:00 98.0 F 09/01/20 07:16 65 18 113/54 98 09/01/20 04:11 97.9 F 81 18 117/77 96 Intake and Output 08/31/20 09/01/20 09/01/20 22:59 06:59 14:59 Other: Weight 157.85 kg PHYSICAL EXAMINATION: Patient is lying in the bed comfortably, no acute distress, awake alert and oriented. Morbidly obese. HEENT: Normocephalic. Neck is supple. Pupils reactive. Nostrils clear. Oral cavity is moist. Ears reveal no drainage. Neck reveals no JVD, carotid bruits, or thyromegaly. CHEST EXAMINATION: Trachea is central. Symmetrical expansion. Lung lovett clear to auscultation and percussion. CARDIAC: Normal S1, S2 with no gallops. No murmurs ABDOMEN: Soft. Bowel sounds normal. No organomegaly. No abdominal bruits. Extremities: reveal no edema. No clubbing or cyanosis Neurologically awake, alert, oriented x3 with well-coordinated movements. No focal deficits noted Skin: No rash or skin lesions. Psychiatric: Coperative. Nonsuicidal Musculoskeletal: No joint swelling or deformity. Normal range of motion. Thrombosis Risk Factor Assmnt - DVT/VTE Prophylaxis DVT/VTE Prophylaxis: Pharmacologic Prophylaxis ordered Assessment and Plan Assessment: Possible migraine headaches. Rule out pseudotumor cerebri with the patient complains of blurry vision on admission and morbidly obese Anxiety/depression Bipolar disorder PTSD GERD Morbid obesity with BMI 59.7 DVT prophylaxis that the ablation Plan: Patient was given Compazine, Benadryl, Toradol and methylprednisolone in the ER. Headache is improving currently as per patient. CT head is negative for any acute process. Patient has been afebrile and no neck stiffness. Neurology was consulted for possible pseudotumor cerebri. Continue with home medications and pain management. Further recommendations based on the clinical course. Time with Patient: Greater than 30
== END 2020-09-01 18:01 | disposition home or self-care (01) ==
LOC: EC 04:00 → 1SOBS 06:38 → 6PED 15:45
PROVIDERS: ADMIT Hospitalist; ATTEND Hospitalist
DX: R51.9 Headache, unspecified (principal); H53.8 Other visual disturbances; F41.9 Anxiety disorder, unspecified; F31.9 Bipolar disorder, unspecified; F43.10 Post-traumatic stress disorder, unspecified; R11.0 Nausea; E66.01 Morbid (severe) obesity due to excess calories; Z68.43 Body mass index [BMI] 50.0-59.9, adult; J45.909 Unspecified asthma, uncomplicated; K21.9 Gastro-esophageal reflux disease without esophagitis; Z91.018 Allergy to other foods; Z79.899 Other long term (current) drug therapy; Z20.822 Contact with and (suspected) exposure to COVID-19; Z83.49 Family history of other endocrine, nutritional and metabolic diseases; Z81.8 Family history of other mental and behavioral disorders; Z83.79 Family history of other diseases of the digestive system
CPT/HCPCS: 96374; 96375; 96376; 99285; 87635; 70450; G0378; J0780; J1885

== ENCOUNTER 2020-09-28 21:51 | Emergency (ER) | payer OTHER ==
--- NOTE | 2020-09-28 22:38 | ED ---
General Adult HPI - General Chief complaint: Shortness of Breath Stated complaint: KERA,Asthma Time Seen by Provider: 09/28/20 22:06 Source: patient Mode of arrival: wheelchair Limitations: no limitations - History of Present Illness Initial comments: 20 year-old female patient presents to the emergency department for evaluation of chest pain and shortness of breath. Patient states that she was shopping at [employer] when she developed a squeezing sensation to her chest and became short of breath. Denies any cough or congestion. States she did try her inhaler on the way here but it did not help. States she has been feeling dizzy which is causing nausea. Denies vomiting. States she has been dealing with headaches for the last several months. Has intermittent blurred vision. Is awaiting appointment with her neurologist. She did have COVID-19 in June 2020. Patient denies any recent rash, fever, chills, abdominal pain, nausea, vomiting, diarrhea, constipation, back pain, numbness, tingling, hematuria, dysuria, urinary urgency, urinary frequency, headache, visual changes, or any other complaints. - Related Data Home Medications Medication Instructions Recorded Confirmed Albuterol Inhaler [Ventolin Hfa 2 puff INHALATION RT-QID PRN 08/25/20 09/01/20 Inhaler] Pantoprazole Sodium [Protonix] 40 mg PO DAILY 08/25/20 09/01/20 Acetaminophen Tab [Tylenol] 1,000 mg PO Q6HR PRN 08/31/20 09/01/20 Escitalopram [Lexapro] 10 mg PO DAILY 08/31/20 09/01/20 hydrOXYzine HCL [Atarax] 10 mg PO TID PRN 08/31/20 09/01/20 Previous Rx's Medication Instructions Recorded Gabapentin [Neurontin] 100 mg PO BID PRN #30 cap 09/01/20 Riboflavin (Vitamin B2) 400 mg PO DAILY #30 tablet 09/01/20 [Riboflavin] Allergies Allergy/AdvReac Type Severity Reaction Status Date / Time gluten AdvReac Nausea & Verified 09/28/20 21:55 Vomiting & Diarrhea Review of Systems ROS Statement: Those systems with pertinent positive or pertinent negative responses have been documented in the HPI. ROS Other: All systems not noted in ROS Statement are negative. Past Medical History Past Medical History: Asthma, GERD/Reflux Additional Past Medical History / Comment(s): vertigo, History of Any Multi-Drug Resistant Organisms: None Reported Past Surgical History: No Surgical Hx Reported Additional Past Surgical History / Comment(s): EGD, wisdom teeth extractions. Past Anesthesia/Blood Transfusion Reactions: No Reported Reaction Past Psychological History: Anxiety, Bipolar, Depression, PTSD Smoking Status: Never smoker Past Alcohol Use History: Rare Past Drug Use History: Marijuana - Past Family History Father Additional Family Medical History / Comment(s): Anxiety, depression, bipolar, cholecystectomy Mother Family Medical History: Thyroid Disorder Additional Family Medical History / Comment(s): Anxiety, depression. General Exam Limitations: no limitations General appearance: alert, in no apparent distress, other (Physical well- developed, well-nourished adult female patient in no acute distress. Vital signs upon presentation are temperature 98.0F, pulse 1:15, respirations 18, blood pressure 101/51, pulse ox 100% on room air.) Eye exam: Present: normal appearance, PERRL, EOMI. Absent: scleral icterus, conjunctival injection, periorbital swelling ENT exam: Present: normal exam, normal oropharynx, mucous membranes moist Respiratory exam: Present: normal lung sounds bilaterally. Absent: respiratory distress, wheezes, rales, rhonchi, stridor Cardiovascular Exam: Present: normal rhythm, tachycardia, normal heart sounds. Absent: systolic murmur, diastolic murmur, rubs, gallop, clicks GI/Abdominal exam: Present: soft, normal bowel sounds. Absent: distended, tenderness, guarding, rebound, rigid Neurological exam: Present: alert, oriented X3, CN II-XII intact Psychiatric exam: Present: normal affect, normal mood Skin exam: Present: warm, dry, intact, normal color. Absent: rash Course Vital Signs 09/28/20 09/28/20 09/28/20 21:55 22:48 23:00 Temperature 98.0 F Pulse Rate 115 H 97 Respiratory 18 18 18 Rate Blood Pressure 101/51 126/71 O2 Sat by Pulse 100 100 100 Oximetry 09/29/20 09/29/20 00:40 01:38 Temperature 98.1 F Pulse Rate 94 102 H Respiratory 19 18 Rate Blood Pressure 120/87 121/65 O2 Sat by Pulse 98 97 Oximetry Medical Decision Making - Medical Decision Making 20-year-old female patient presents to the emergency department today for eval uation of shortness of breath and chest tightness. Physical examination was unremarkable. Lungs are clear to auscultation with good air movement. Vital signs within normal ranges. Labs reviewed and were unremarkable. D-dimer negative. EKG was unremarkable. Chest x-ray negative. She'll be discharged follow up with the primary care physician for recheck in 1-2 days. Return parameters were discussed in detail. She verbalizes understanding and agrees with this plan. Case discussed with my attending Dr. Way. - Lab Data Result diagrams: 09/29/20 00:33 09/29/20 00:33 Lab Results 09/29/20 09/29/20 09/29/20 Range/Units 00:33 00:33 00:33 WBC 10.4 (3.8-10.6) k/uL RBC 4.39 (3.80-5.40) m/uL Hgb 12.5 (11.4-16.0) gm/dL Hct 37.7 (34.0-46.0) % MCV 86.0 (80.0-100.0) fL MCH 28.5 (25.0-35.0) pg MCHC 33.2 (31.0-37.0) g/dL RDW 14.6 (11.5-15.5) % Plt Count 304 (150-450) k/uL MPV 6.9 Neutrophils % 69 % Lymphocytes % 23 % Monocytes % 6 % Eosinophils % 1 % Basophils % 0 % Neutrophils # 7.2 (1.3-7.7) k/uL Lymphocytes # 2.4 (1.0-4.8) k/uL Monocytes # 0.6 (0-1.0) k/uL Eosinophils # 0.1 (0-0.7) k/uL Basophils # 0.0 (0-0.2) k/uL PT 9.5 (9.0-12.0) sec INR 0.9 (<1.2) APTT 22.9 (22.0-30.0) sec D-Dimer 0.35 (<0.60) mg/L FEU Sodium 139 (137-145) mmol/L Potassium 4.2 (3.5-5.1) mmol/L Chloride 103 (98-107) mmol/L Carbon Dioxide 26 (22-30) mmol/L Anion Gap 10 mmol/L BUN 9 (7-17) mg/dL Creatinine 0.57 (0.52-1.04) mg/dL Est GFR (CKD-EPI)AfAm >90 (>60 ml/min/1.73 sqM) Est GFR (CKD-EPI)NonAf >90 (>60 ml/min/1.73 sqM) Glucose 94 (74-99) mg/dL Calcium 9.7 (8.4-10.2) mg/dL Total Bilirubin 0.3 (0.2-1.3) mg/dL AST 28 (14-36) U/L ALT 24 (4-34) U/L Alkaline Phosphatase 70 (38-126) U/L Troponin I (0.000-0.034) ng/mL Total Protein 7.7 (6.3-8.2) g/dL Albumin 4.3 (3.5-5.0) g/dL 09/29/20 Range/Units 00:33 WBC (3.8-10.6) k/uL RBC (3.80-5.40) m/uL Hgb (11.4-16.0) gm/dL Hct (34.0-46.0) % MCV (80.0-100.0) fL MCH (25.0-35.0) pg MCHC (31.0-37.0) g/dL RDW (11.5-15.5) % Plt Count (150-450) k/uL MPV Neutrophils % % Lymphocytes % % Monocytes % % Eosinophils % % Basophils % % Neutrophils # (1.3-7.7) k/uL Lymphocytes # (1.0-4.8) k/uL Monocytes # (0-1.0) k/uL Eosinophils # (0-0.7) k/uL Basophils # (0-0.2) k/uL PT (9.0-12.0) sec INR (<1.2) APTT (22.0-30.0) sec D-Dimer (<0.60) mg/L FEU Sodium (137-145) mmol/L Potassium (3.5-5.1) mmol/L Chloride (98-107) mmol/L Carbon Dioxide (22-30) mmol/L Anion Gap mmol/L BUN (7-17) mg/dL Creatinine (0.52-1.04) mg/dL Est GFR (CKD-EPI)AfAm (>60 ml/min/1.73 sqM) Est GFR (CKD-EPI)NonAf (>60 ml/min/1.73 sqM) Glucose (74-99) mg/dL Calcium (8.4-10.2) mg/dL Total Bilirubin (0.2-1.3) mg/dL AST (14-36) U/L ALT (4-34) U/L Alkaline Phosphatase (38-126) U/L Troponin I <0.012 (0.000-0.034) ng/mL Total Protein (6.3-8.2) g/dL Albumin (3.5-5.0) g/dL - EKG Data -: EKG Interpreted by Me EKG Comments: EKG obtained at 2223 shows sinus tachycardia with a ventricular rate of 101, [place] interval 174, QRS duration 90, QT 350, QTC 464. There is evidence for S1, Q3, flattened T waves in lead 3. No ST elevation or depression. - Radiology Data Radiology results: report reviewed, image reviewed Two-view x-ray of the chest is obtained. Report was reviewed in its entirety. Impression by Dr. Layton shows normal chest. No change. Disposition Clinical Impression: Shortness of breath, Chest pain Disposition: HOME SELF-CARE Condition: Good Instructions (If sedation given, give patient instructions): Chest Pain (ED), Shortness of Breath (ED) Additional Instructions: Follow-up with her primary care physician for further evaluation as soon as possible. Return for any new, worsening, or concerning symptoms. Is patient prescribed a controlled substance at d/c from ED?: No Referrals: None,Stated [Primary Care Provider] - 1-2 days Time of Disposition: 01:25
--- NOTE | 2020-09-28 22:45 | XR ---
EXAMINATION TYPE: XR chest 2V DATE OF EXAM: 09/28/2020 COMPARISON: 08/25/2020 HISTORY: Short of breath TECHNIQUE: FINDINGS: Heart and mediastinum are normal. Lungs are clear. Diaphragm is normal. Bony thorax appears normal. IMPRESSION: Normal chest. No change.
[2020-09-29 00:56] LABS: Basophils % (A) 0 %; Eosinophils # (A) 0.1 k/uL (0-0.7); Eosinophils % (A) 1 %; HCT 37.7 % (34.0-46.0); HGB 12.5 gm/dL (11.4-16.0); Lymphocytes # (A) 2.4 k/uL (1.0-4.8); Lymphocytes % (A) 23 %; MCH 28.5 pg (25.0-35.0); MCHC 33.2 g/dL (31.0-37.0); Mean Platelet Volume 6.9; Monocytes # (A) 0.6 k/uL (0-1.0); Monocytes % (A) 6 %; Neutrophils # (A) 7.2 k/uL (1.3-7.7); Neutrophils % (A) 69 %; Platelet Count 304 k/uL (150-450); RBC 4.39 m/uL (3.80-5.40); RDW 14.6 % (11.5-15.5); WBC 10.4 k/uL (3.8-10.6)
[2020-09-29 01:15] LABS: ALT 24 U/L (4-34); AST 28 U/L (14-36); African American GFR (CKD) >90 (>60 ml/min/1.73 sqM); Albumin 4.3 g/dL (3.5-5.0); Alkaline Phosphatase 70 U/L (38-126); Anion Gap 10 mmol/L; Blood Urea Nitrogen 9 mg/dL (7-17); Calcium 9.7 mg/dL (8.4-10.2); Carbon Dioxide 26 mmol/L (22-30); Chloride 103 mmol/L (98-107); Glucose 94 mg/dL (74-99); Non-African American GFR(CKD) >90 (>60 ml/min/1.73 sqM); Potassium 4.2 mmol/L (3.5-5.1); Sodium 139 mmol/L (137-145); Total Bilirubin 0.3 mg/dL (0.2-1.3); Total Protein 7.7 g/dL (6.3-8.2)
[2020-09-29 01:16] LABS: D-Dimer 0.35 mg/L FEU (<0.60); INR 0.9 (<1.2); Partial Thromboplastin Time 22.9 sec (22.0-30.0); Prothrombin Time 9.5 sec (9.0-12.0)
[2020-09-29 01:40] VITALS: BP 121/65; PULSE 102; RESP 18; TEMP 98.1
== END 2020-09-29 01:39 | disposition home or self-care (01) ==
LOC: EC 21:51
DX: R06.02 Shortness of breath (principal); R07.9 Chest pain, unspecified; J45.909 Unspecified asthma, uncomplicated; K21.9 Gastro-esophageal reflux disease without esophagitis; F32.9 Major depressive disorder, single episode, unspecified; F12.90 Cannabis use, unspecified, uncomplicated; F41.9 Anxiety disorder, unspecified
CPT/HCPCS: 36415; 71046; 80053; 81025; 84484; 85025; 85379; 85610; 85730; 93005; 99285

== ENCOUNTER 2020-10-09 03:00 | Emergency (ER) | payer OTHER ==
[2020-10-09 03:06] VITALS: TEMP 98
[2020-10-09] MEDS ORDERED: IPRATROPIUM-ALBUTEROL 3 ML NEB INHALATION STA (03:27)
[2020-10-09] MEDS ORDERED: predniSONE 20 MG TAB PO STA (03:27)
--- NOTE | 2020-10-09 03:47 | ED ---
SOB HPI - General Chief Complaint: Shortness of Breath Stated Complaint: KERA Time Seen by Provider: 10/09/20 03:19 Source: patient Mode of arrival: ambulatory Limitations: no limitations - Related Data Home Medications Medication Instructions Recorded Confirmed Albuterol Inhaler [Ventolin Hfa 2 puff INHALATION RT-QID PRN 08/25/20 09/01/20 Inhaler] Pantoprazole Sodium [Protonix] 40 mg PO DAILY 08/25/20 09/01/20 Acetaminophen Tab [Tylenol] 1,000 mg PO Q6HR PRN 08/31/20 09/01/20 Escitalopram [Lexapro] 10 mg PO DAILY 08/31/20 09/01/20 hydrOXYzine HCL [Atarax] 10 mg PO TID PRN 08/31/20 09/01/20 Previous Rx's Medication Instructions Recorded Gabapentin [Neurontin] 100 mg PO BID PRN #30 cap 09/01/20 Riboflavin (Vitamin B2) 400 mg PO DAILY #30 tablet 09/01/20 [Riboflavin] Allergies Allergy/AdvReac Type Severity Reaction Status Date / Time gluten AdvReac Nausea & Verified 10/09/20 03:06 Vomiting & Diarrhea Review of Systems ROS Statement: Those systems with pertinent positive or pertinent negative responses have been documented in the HPI. ROS Other: All systems not noted in ROS Statement are negative. Past Medical History Past Medical History: Asthma, GERD/Reflux Additional Past Medical History / Comment(s): vertigo, History of Any Multi-Drug Resistant Organisms: None Reported Past Surgical History: No Surgical Hx Reported Additional Past Surgical History / Comment(s): EGD, wisdom teeth extractions. Past Anesthesia/Blood Transfusion Reactions: No Reported Reaction Past Psychological History: Anxiety, Bipolar, Depression, PTSD Smoking Status: Never smoker Past Alcohol Use History: Rare Past Drug Use History: Marijuana - Past Family History Father Additional Family Medical History / Comment(s): Anxiety, depression, bipolar, cholecystectomy Mother Family Medical History: Thyroid Disorder Additional Family Medical History / Comment(s): Anxiety, depression. General Exam Limitations: no limitations Course Vital Signs 10/09/20 10/09/20 03:01 04:04 Temperature 98 F Pulse Rate 110 H Respiratory 20 18 Rate Blood Pressure 118/74 O2 Sat by Pulse 96 Oximetry Medical Decision Making - Lab Data Lab Results 05/21/21 05/21/21 Range/Units 04:08 04:08 Urine Color Yellow Urine Appearance Cloudy H (Clear) Urine pH 5.5 (5.0-8.0) Ur Specific [place] 1.024 (1.001-1.035) Urine Protein Negative (Negative) Urine Glucose (UA) Negative (Negative) Urine Ketones Negative (Negative) Urine Blood Negative (Negative) Urine Nitrite Negative (Negative) Urine Bilirubin Negative (Negative) Urine Urobilinogen <2.0 (<2.0) mg/dL Ur Leukocyte Esterase Trace H (Negative) Urine WBC 3 (0-5) /hpf Ur Squamous Epith Cells 12 H (0-4) /hpf Urine Bacteria Rare H (None) /hpf Urine Mucus Rare H (None) /hpf Urine HCG, Qual Not Detected (Not Detectd) Disposition Clinical Impression: Normal exam, Shortness of breath Disposition: HOME SELF-CARE Condition: Good Instructions (If sedation given, give patient instructions): Normal Exam (ED) Is patient prescribed a controlled substance at d/c from ED?: No Referrals: None,Stated [Primary Care Provider] - 1-2 days
[2020-10-09 04:26] LABS: Appearance,Urine Cloudy (Clear); Bacteria,Urine Rare /hpf; Bilirubin,Urine Negative (Negative); Blood,Urine Negative (Negative); Color,Urine Yellow; Glucose,Urine (UA) Negative (Negative); Ketones,Urine Negative (Negative); Leukocyte Esterase,Urine Trace (Negative); Mucus,Urine Rare /hpf; Nitrite,Urine Negative (Negative); PH, Urine 5.5 (5.0-8.0); Protein,Urine Negative (Negative); Specific Gravity,Urine 1.024 (1.001-1.035); Squamous Epithelial Cell,Urine 12 /hpf (0-4); Urobilinogen,Urine <2.0 mg/dL (<2.0); WBC,Urine 3 /hpf (0-5)
--- NOTE | 2020-10-09 04:26 | XR ---
EXAM: XR Chest, 2 Views CLINICAL HISTORY: Cough TECHNIQUE: Frontal and lateral views of the chest. COMPARISON: Chest x-ray dated 09/28/2020 FINDINGS: Lungs: Unremarkable. Pleural space: Unremarkable. Heart: Unremarkable. Mediastinum: Unremarkable. Bones/joints: Unremarkable. IMPRESSION: Normal chest x-rays.
--- NOTE | 2020-10-09 04:26 | XR ---
EXAM: XR Right Wrist Complete, 3 or More Views CLINICAL HISTORY: ITS.REASON XR Reason: fall TECHNIQUE: Frontal, lateral and oblique views of the right wrist. COMPARISON: No relevant prior studies available. FINDINGS: Bones/joints: Unremarkable. No acute fracture. No dislocation. Soft tissues: Unremarkable. No radiopaque foreign body. IMPRESSION: Normal right wrist x-rays.
[2020-10-09 05:10] VITALS: BP 132/87; PULSE 102; RESP 16
== END 2020-10-09 05:10 | disposition home or self-care (01) ==
LOC: EC 03:00
DX: R06.02 Shortness of breath (principal); J45.909 Unspecified asthma, uncomplicated; K21.9 Gastro-esophageal reflux disease without esophagitis
CPT/HCPCS: 71046; 81001; 81025; 99285

== ENCOUNTER 2020-10-10 22:38 | Emergency (ER) | payer OTHER ==
[2020-10-10 22:44] VITALS: BP 121/60; PULSE 99; RESP 22; TEMP 98.4
[2020-10-10] MEDS ORDERED: FAMOTIDINE 20 MG TAB PO STA (23:44)
[2020-10-10] MEDS ORDERED: predniSONE 20 MG TAB PO STA (23:44)
[2020-10-10] MEDS ORDERED: hydrOXYzine HCL 25 MG TAB PO STA (23:44)
--- NOTE | 2020-10-10 23:45 | ED ---
Allergic Reaction HPI - General Chief complaint: Allergic Reaction Stated complaint: Allergic reaction Time Seen by Provider: 10/10/20 23:12 Source: patient Mode of arrival: wheelchair Limitations: no limitations - Related Data Home Medications Medication Instructions Recorded Confirmed Albuterol Inhaler [Ventolin Hfa 2 puff INHALATION RT-QID PRN 08/25/20 09/01/20 Inhaler] Pantoprazole Sodium [Protonix] 40 mg PO DAILY 08/25/20 09/01/20 Acetaminophen Tab [Tylenol] 1,000 mg PO Q6HR PRN 08/31/20 09/01/20 Escitalopram [Lexapro] 10 mg PO DAILY 08/31/20 09/01/20 hydrOXYzine HCL [Atarax] 10 mg PO TID PRN 08/31/20 09/01/20 Previous Rx's Medication Instructions Recorded Gabapentin [Neurontin] 100 mg PO BID PRN #30 cap 09/01/20 Riboflavin (Vitamin B2) 400 mg PO DAILY #30 tablet 09/01/20 [Riboflavin] Allergies Allergy/AdvReac Type Severity Reaction Status Date / Time gluten AdvReac Nausea & Verified 10/10/20 22:44 Vomiting & Diarrhea Review of Systems ROS Statement: Those systems with pertinent positive or pertinent negative responses have been documented in the HPI. ROS Other: All systems not noted in ROS Statement are negative. Past Medical History Past Medical History: Asthma, GERD/Reflux Additional Past Medical History / Comment(s): vertigo, History of Any Multi-Drug Resistant Organisms: None Reported Past Surgical History: No Surgical Hx Reported Additional Past Surgical History / Comment(s): EGD, wisdom teeth extractions. Past Anesthesia/Blood Transfusion Reactions: No Reported Reaction Past Psychological History: Anxiety, Bipolar, Depression, PTSD Smoking Status: Never smoker Past Alcohol Use History: Rare Past Drug Use History: Marijuana - Past Family History Father Additional Family Medical History / Comment(s): Anxiety, depression, bipolar, cholecystectomy Mother Family Medical History: Thyroid Disorder Additional Family Medical History / Comment(s): Anxiety, depression. General Exam Limitations: no limitations Course Vital Signs 10/10/20 22:40 Temperature 98.4 F Pulse Rate 99 Respiratory 22 Rate Blood Pressure 121/60 O2 Sat by Pulse 97 Oximetry Disposition Clinical Impression: Allergic reaction, Urticaria Disposition: HOME SELF-CARE Condition: Good Instructions (If sedation given, give patient instructions): Urticaria (ED) Is patient prescribed a controlled substance at d/c from ED?: No Referrals: None,Stated [Primary Care Provider] - 1-2 days
== END 2020-10-11 00:12 | disposition home or self-care (01) ==
LOC: EC 22:38
DX: L50.0 Allergic urticaria (principal); J45.909 Unspecified asthma, uncomplicated; K21.9 Gastro-esophageal reflux disease without esophagitis
CPT/HCPCS: 99282; J7512

== ENCOUNTER 2020-10-15 22:32 | Emergency (ER) | payer OTHER ==
[2020-10-15 22:37] VITALS: BP 138/82; PULSE 88; RESP 18; TEMP 97.4
[2020-10-15 23:38] LABS: Basophils % (A) 0 %; Eosinophils # (A) 0.2 k/uL (0-0.7); Eosinophils % (A) 2 %; HCT 38.3 % (34.0-46.0); HGB 12.7 gm/dL (11.4-16.0); Lymphocytes # (A) 1.8 k/uL (1.0-4.8); Lymphocytes % (A) 18 %; MCH 28.4 pg (25.0-35.0); MCHC 33.1 g/dL (31.0-37.0); Mean Platelet Volume 6.7; Monocytes # (A) 0.5 k/uL (0-1.0); Monocytes % (A) 5 %; Neutrophils # (A) 7.3 k/uL (1.3-7.7); Neutrophils % (A) 74 %; Platelet Count 368 k/uL (150-450); RBC 4.46 m/uL (3.80-5.40); RDW 14.1 % (11.5-15.5); WBC 9.9 k/uL (3.8-10.6)
[2020-10-15 23:42] LABS: African American GFR (CKD) >90 (>60 ml/min/1.73 sqM); Anion Gap 7 mmol/L; Blood Urea Nitrogen 10 mg/dL (7-17); Calcium 9.5 mg/dL (8.4-10.2); Carbon Dioxide 27 mmol/L (22-30); Chloride 105 mmol/L (98-107); Glucose 103 mg/dL (74-99); Non-African American GFR(CKD) >90 (>60 ml/min/1.73 sqM); Potassium 3.9 mmol/L (3.5-5.1); Sodium 139 mmol/L (137-145)
--- NOTE | 2020-10-16 00:36 | ED ---
Female Urogenital HPI - General Chief complaint: Vaginal Bleeding Stated complaint: Vaginal bleeding Time Seen by Provider: 10/15/20 22:39 Source: patient Mode of arrival: wheelchair Limitations: no limitations - History of Present Illness Initial comments: This patient is a 20-year-old woman who presents with complaint that every time she has her. She feels like she is freezing. She is concerned that this may be due to anemia. She states she does have heavy periods. I addition she feels she has been going to the bathroom more than usual. Patient was concerned this may represent urinary tract infection. No dysuria. No flank or abdominal pain other than the menstrual cramps. No fever. MD Complaint: vaginal bleeding, other Onset/Timin -: days(s) Quality: cramping Consistency: constant Improves with: none Worsens with: none Last Menstrual Period: 08/30/20 - Related Data Home Medications Medication Instructions Recorded Confirmed Albuterol Sulfate [Proair Hfa] 2 puff INHALATION RT-QID PRN 10/16/20 10/16/20 Allergies Allergy/AdvReac Type Severity Reaction Status Date / Time aloe vera Allergy Rash/Hives Verified 10/16/20 00:19 gluten AdvReac Nausea & Verified 10/16/20 00:19 Vomiting & Diarrhea Review of Systems ROS Statement: Those systems with pertinent positive or pertinent negative responses have been documented in the HPI. ROS Other: All systems not noted in ROS Statement are negative. Constitutional: Reports: chills. Denies: fever Respiratory: Denies: cough, dyspnea Cardiovascular: Denies: chest pain, palpitations, dyspnea on exertion, orthopnea, edema, syncope Gastrointestinal: Reports: abdominal pain (Cramping). Denies: nausea, vomiting, diarrhea, melena, hematochezia Genitourinary: Reports: frequency. Denies: dysuria, hematuria, abnormal menses Musculoskeletal: Denies: back pain Skin: Denies: rash Neurological: Denies: headache, weakness, numbness Past Medical History Past Medical History: Asthma, GERD/Reflux Additional Past Medical History / Comment(s): vertigo, History of Any Multi-Drug Resistant Organisms: None Reported Past Surgical History: No Surgical Hx Reported Additional Past Surgical History / Comment(s): EGD, wisdom teeth extractions. Past Anesthesia/Blood Transfusion Reactions: No Reported Reaction Past Psychological History: Anxiety, Bipolar, Depression, PTSD Smoking Status: Never smoker Past Alcohol Use History: Rare Past Drug Use History: Marijuana - Past Family History Father Additional Family Medical History / Comment(s): Anxiety, depression, bipolar, cholecystectomy Mother Family Medical History: Thyroid Disorder Additional Family Medical History / Comment(s): Anxiety, depression. General Exam Limitations: no limitations General appearance: alert, in no apparent distress Head exam: Present: atraumatic, normocephalic Eye exam: Present: normal appearance. Absent: scleral icterus, conjunctival injection Neck exam: Present: normal inspection Respiratory exam: Present: normal lung sounds bilaterally. Absent: respiratory distress, wheezes, rales, rhonchi, stridor Cardiovascular Exam: Present: regular rate, normal rhythm, normal heart sounds. Absent: systolic murmur, diastolic murmur, rubs, gallop GI/Abdominal exam: Present: soft. Absent: distended, tenderness, guarding, rebound, rigid, mass, pulsatile mass Extremities exam: Present: normal inspection, normal capillary refill. Absent: pedal edema, calf tenderness Back exam: Present: normal inspection. Absent: CVA tenderness (R), CVA tenderness (L) Neurological exam: Present: alert Skin exam: Present: warm, dry, intact, normal color. Absent: rash, pallor Course Vital Signs 10/15/20 22:33 Temperature 97.4 F L Pulse Rate 88 Respiratory 18 Rate Blood Pressure 138/82 O2 Sat by Pulse 99 Oximetry Medical Decision Making - Medical Decision Making I discussed sending urine specimen to check for urinary tract infection. I stated that with the current menstrual flow that probably the best specimen would be catheterized specimen. Patient states that this point she would rather wait until her cycle ends, then have the urine checked. - Lab Data Result diagrams: 10/15/20 23:17 10/15/20 23:17 Lab Results 10/15/20 10/15/20 10/15/20 Range/Units 23:17 23:17 23:17 WBC 9.9 (3.8-10.6) k/uL RBC 4.46 (3.80-5.40) m/uL Hgb 12.7 (11.4-16.0) gm/dL Hct 38.3 (34.0-46.0) % MCV 86.0 (80.0-100.0) fL MCH 28.4 (25.0-35.0) pg MCHC 33.1 (31.0-37.0) g/dL RDW 14.1 (11.5-15.5) % Plt Count 368 (150-450) k/uL MPV 6.7 Neutrophils % 74 % Lymphocytes % 18 % Monocytes % 5 % Eosinophils % 2 % Basophils % 0 % Neutrophils # 7.3 (1.3-7.7) k/uL Lymphocytes # 1.8 (1.0-4.8) k/uL Monocytes # 0.5 (0-1.0) k/uL Eosinophils # 0.2 (0-0.7) k/uL Basophils # 0.0 (0-0.2) k/uL Sodium 139 (137-145) mmol/L Potassium 3.9 (3.5-5.1) mmol/L Chloride 105 (98-107) mmol/L Carbon Dioxide 27 (22-30) mmol/L Anion Gap 7 mmol/L BUN 10 (7-17) mg/dL Creatinine 0.63 (0.52-1.04) mg/dL Est GFR (CKD-EPI)AfAm >90 (>60 ml/min/1.73 sqM) Est GFR (CKD-EPI)NonAf >90 (>60 ml/min/1.73 sqM) Glucose 103 H (74-99) mg/dL Calcium 9.5 (8.4-10.2) mg/dL Urine HCG, Qual Not Detected (Not Detectd) Disposition Clinical Impression: Dysmenorrhea Disposition: HOME SELF-CARE Condition: Good Instructions (If sedation given, give patient instructions): Dysmenorrhea (ED) Is patient prescribed a controlled substance at d/c from ED?: No Referrals: None,Stated [Primary Care Provider] - 1-2 days Theresa Aceves DO [Doctor of Osteopathic Medicine] - 1-2 days
== END 2020-10-16 00:47 | disposition home or self-care (01) ==
LOC: EC 22:32
DX: N94.6 Dysmenorrhea, unspecified (principal); N93.9 Abnormal uterine and vaginal bleeding, unspecified; J45.909 Unspecified asthma, uncomplicated; Z91.09 Other allergy status, other than to drugs and biological substances
CPT/HCPCS: 36415; 80048; 81025; 85025; 99284

== ENCOUNTER 2020-10-24 03:13 | Emergency (ER) | payer OTHER ==
[2020-10-24 03:27] VITALS: RESP 20
[2020-10-24] MEDS ORDERED: SODIUM CHLORIDE 0.9% 500 ML 500 ML IV STA (03:31)
--- NOTE | 2020-10-24 03:33 | ED ---
Chest Pain HPI - General Chief Complaint: Chest Pain Stated Complaint: Chest Pain Time Seen by Provider: 10/24/20 03:15 Source: EMS Mode of arrival: EMS Limitations: no limitations - History of Present Illness MD Complaint: chest pain Onset/Timin -: hour(s) Onset: during rest (Watching television) Pain Location: right chest Pain Radiation: RUE Severity: moderate Quality: aching Consistency: constant Improves With: nothing Worsens With: nothing Other Symptoms: palpitations Treatments Prior to Arrival: none - Related Data Home Medications Medication Instructions Recorded Confirmed Albuterol Sulfate [Proair Hfa] 2 puff INHALATION RT-QID PRN 10/16/20 10/16/20 Allergies Allergy/AdvReac Type Severity Reaction Status Date / Time aloe vera Allergy Rash/Hives Verified 10/24/20 03:27 gluten AdvReac Nausea & Verified 10/24/20 03:27 Vomiting & Diarrhea Review of Systems ROS Statement: Those systems with pertinent positive or pertinent negative responses have been documented in the HPI. ROS Other: All systems not noted in ROS Statement are negative. Constitutional: Denies: fever, chills Respiratory: Denies: cough, dyspnea Cardiovascular: Reports: chest pain. Denies: palpitations, edema Gastrointestinal: Reports: abdominal pain EKG Findings - EKG Results: EKG: interpreted by ERMD, sinus rhythm, normal axis, normal ST/T - Blocks, Collyer, Hypertrophy, ST Abn: Chamber hypertrophy or enlargement: only voltage criteria for left ventricular hypertrophy Past Medical History Past Medical History: Asthma, GERD/Reflux Additional Past Medical History / Comment(s): vertigo, History of Any Multi-Drug Resistant Organisms: None Reported Past Surgical History: No Surgical Hx Reported Additional Past Surgical History / Comment(s): EGD, wisdom teeth extractions. Past Anesthesia/Blood Transfusion Reactions: No Reported Reaction Past Psychological History: Anxiety, Bipolar, Depression, PTSD Smoking Status: Never smoker Past Alcohol Use History: Rare Past Drug Use History: Marijuana - Past Family History Father Additional Family Medical History / Comment(s): Anxiety, depression, bipolar, cholecystectomy Mother Family Medical History: Thyroid Disorder Additional Family Medical History / Comment(s): Anxiety, depression. General Exam Limitations: no limitations Course Vital Signs 10/24/20 10/24/20 03:19 04:17 Temperature 99.6 F Pulse Rate 101 H 87 Respiratory 20 20 Rate Blood Pressure 132/83 107/86 O2 Sat by Pulse 97 97 Oximetry Disposition Clinical Impression: Chest pain Disposition: HOME SELF-CARE Condition: Good Instructions (If sedation given, give patient instructions): Chest Pain (ED) Additional Instructions: As we discussed, call the cardiology clinic to see about having a Holter monitor. Is patient prescribed a controlled substance at d/c from ED?: No Referrals: None,Stated [Primary Care Provider] - 1-2 days Christa Soriano MD [STAFF PHYSICIAN] - 1-2 days
[2020-10-24 03:58] LABS: Basophils % (A) 0 %; Eosinophils # (A) 0.1 k/uL (0-0.7); Eosinophils % (A) 1 %; HCT 38.3 % (34.0-46.0); HGB 12.6 gm/dL (11.4-16.0); Lymphocytes # (A) 2.6 k/uL (1.0-4.8); Lymphocytes % (A) 27 %; MCH 28.2 pg (25.0-35.0); MCHC 32.9 g/dL (31.0-37.0); MCV 85.9 fL (80.0-100.0); Monocytes # (A) 0.6 k/uL (0-1.0); Monocytes % (A) 6 %; Neutrophils # (A) 6.2 k/uL (1.3-7.7); Neutrophils % (A) 64 %; Platelet Count 308 k/uL (150-450); RBC 4.45 m/uL (3.80-5.40); RDW 14.1 % (11.5-15.5); WBC 9.6 k/uL (3.8-10.6)
[2020-10-24 04:07] LABS: Appearance,Urine Clear (Clear); Bilirubin,Urine Negative (Negative); Blood,Urine Negative (Negative); Color,Urine Yellow; Glucose,Urine (UA) Negative (Negative); Ketones,Urine Negative (Negative); Leukocyte Esterase,Urine Negative (Negative); Nitrite,Urine Negative (Negative); PH, Urine 6.5 (5.0-8.0); Protein,Urine Trace (Negative); Specific Gravity,Urine 1.031 (1.001-1.035); Urobilinogen,Urine <2.0 mg/dL (<2.0)
[2020-10-24 04:12] LABS: ALT 24 U/L (4-34); AST 27 U/L (14-36); African American GFR (CKD) >90 (>60 ml/min/1.73 sqM); Albumin 4.2 g/dL (3.5-5.0); Alkaline Phosphatase 92 U/L (38-126); Amylase 53 U/L (30-110); Anion Gap 9 mmol/L; Blood Urea Nitrogen 8 mg/dL (7-17); Calcium 9.4 mg/dL (8.4-10.2); Carbon Dioxide 25 mmol/L (22-30); Chloride 106 mmol/L (98-107); Glucose 127 mg/dL (74-99); Magnesium 1.9 mg/dL (1.6-2.3); Non-African American GFR(CKD) >90 (>60 ml/min/1.73 sqM); Potassium 4.1 mmol/L (3.5-5.1); Sodium 140 mmol/L (137-145); Total Bilirubin 0.2 mg/dL (0.2-1.3); Total Protein 7.3 g/dL (6.3-8.2)
[2020-10-24 04:19] LABS: D-Dimer 0.31 mg/L FEU (<0.60); INR 0.9 (<1.2); Partial Thromboplastin Time 24.7 sec (22.0-30.0); Prothrombin Time 9.4 sec (9.0-12.0)
--- NOTE | 2020-10-24 05:13 | XR ---
EXAM: XR Chest, 2 Views CLINICAL HISTORY: ITS.REASON XR Reason: Chest Pain TECHNIQUE: Frontal and lateral views of the chest. COMPARISON: 10/09/2020 FINDINGS: Lungs: Diminished lung volumes, stable. No focal consolidation. The pulmonary vasculature is unremarkable. Pleural space: Unremarkable. No pneumothorax. No large pleural effusion. Heart: Unremarkable. No cardiomegaly. Mediastinum: Unremarkable. No significant abnormality identified. The trachea is midline. Bones/joints: Unremarkable. IMPRESSION: No focal consolidation or acute cardiopulmonary process identified.
[2020-10-24 07:15] VITALS: BP 129/80; PULSE 85; TEMP 98.1
== END 2020-10-24 06:37 | disposition home or self-care (01) ==
LOC: EC 03:13
DX: R07.89 Other chest pain (principal); R10.9 Unspecified abdominal pain; J45.909 Unspecified asthma, uncomplicated; Z91.09 Other allergy status, other than to drugs and biological substances; Z90.49 Acquired absence of other specified parts of digestive tract; Z91.018 Allergy to other foods
CPT/HCPCS: 36415; 71046; 80053; 81003; 81025; 82150; 83735; 83880; 84484; 85025; 85379; 85610; 85730; 93005; 99285

== ENCOUNTER 2020-11-04 01:22 | Emergency (ER) | payer OTHER ==
[2020-11-04 01:27] VITALS: BP 138/87; PULSE 89; RESP 16; TEMP 98.4
[2020-11-04] MEDS ORDERED: KETOROLAC 15 MG/ML 1 ML VIAL IM STA (01:43)
--- NOTE | 2020-11-04 01:45 | ED ---
General Adult HPI - General Chief complaint: Extremity Injury, Upper Stated complaint: RT thumb pain Time Seen by Provider: 11/04/20 01:29 Source: patient Mode of arrival: ambulatory Limitations: no limitations - History of Present Illness Initial comments: 20 year-old female patient presents to the emergency department for evaluation of right thumb pain. States symptoms started a couple of days ago. Pain woke her from sleep tonight. States she was unable to move it without significant discomfort. States the pain shoots down into the wrist. Denies any known injury or history of similar symptoms. Denies any fever, chills, redness, or swelling to the thumb. Denies current employment or hobby with repetitive movement of the hands or thumb. Denies taking any medication for her pain. - Related Data Home Medications Medication Instructions Recorded Confirmed Albuterol Sulfate [Proair Hfa] 2 puff INHALATION RT-QID PRN 10/16/20 10/16/20 Previous Rx's Medication Instructions Recorded Ibuprofen [Motrin] 600 mg PO Q8HR PRN #30 tab 11/04/20 Allergies Allergy/AdvReac Type Severity Reaction Status Date / Time aloe vera Allergy Rash/Hives Verified 11/04/20 01:24 gluten AdvReac Nausea & Verified 11/04/20 01:24 Vomiting & Diarrhea Review of Systems ROS Statement: Those systems with pertinent positive or pertinent negative responses have been documented in the HPI. ROS Other: All systems not noted in ROS Statement are negative. Past Medical History Past Medical History: Asthma, GERD/Reflux Additional Past Medical History / Comment(s): vertigo, History of Any Multi-Drug Resistant Organisms: None Reported Past Surgical History: No Surgical Hx Reported Additional Past Surgical History / Comment(s): EGD, wisdom teeth extractions. Past Anesthesia/Blood Transfusion Reactions: No Reported Reaction Past Psychological History: Anxiety, Bipolar, Depression, PTSD Smoking Status: Never smoker Past Alcohol Use History: Rare Past Drug Use History: Marijuana - Past Family History Father Additional Family Medical History / Comment(s): Anxiety, depression, bipolar, cholecystectomy Mother Family Medical History: Thyroid Disorder Additional Family Medical History / Comment(s): Anxiety, depression. General Exam Limitations: no limitations General appearance: alert, in no apparent distress, other (This is a well-devel oped, well-nourished adult female patient in no acute distress. Vital signs upon presentation are temperature 98.4F, pulse 89, respirations 16, blood pressure 138/87, pulse ox 98% on room air.) Respiratory exam: Present: normal lung sounds bilaterally. Absent: respiratory distress, wheezes, rales, rhonchi, stridor Cardiovascular Exam: Present: regular rate, normal rhythm, normal heart sounds. Absent: systolic murmur, diastolic murmur, rubs, gallop, clicks Extremities exam: Present: normal inspection, normal capillary refill, other (Skin to the hand is pink, warm, dry. Cap refill less than 3 seconds. Radial pulses 2+). Absent: full ROM (Increase pain with movement), tenderness, pedal edema, joint swelling, calf tenderness Neurological exam: Present: alert, oriented X3, CN II-XII intact Psychiatric exam: Present: normal affect, normal mood Skin exam: Present: warm, dry, intact, normal color. Absent: rash Course Vital Signs 11/04/20 01:24 Temperature 98.4 F Pulse Rate 89 Respiratory 16 Rate Blood Pressure 138/87 O2 Sat by Pulse 98 Oximetry Medical Decision Making - Medical Decision Making 20 year-old female patient presents to the emergency department for evaluation of right thumb pain that started three days ago. Physical exam was unremarkable. Patient reluctant to move the thumb due to pain. Neurovascular status intact. Xray negative. Given prescription for ibuprofen for pain control. She'll be discharged with the primary care physician for recheck in 1-2 days. Return parameters discussed in detail. She verbalizes understanding and agrees with this plan. My attending is Dr. Way. - Radiology Data Radiology results: report reviewed, image reviewed 3 views of the right thumb are obtained. Report reviewed in its entirety. Impression by Dr. Layton shows negative right thumb exam. Disposition Clinical Impression: Thumb pain Disposition: HOME SELF-CARE Condition: Good Instructions (If sedation given, give patient instructions): Tenosynovitis (ED) Additional Instructions: Take medications as directed. Follow up with your primary care physician if your symptoms persist beyond one week. Return for any new, worsening, or concerning symptoms . Is patient prescribed a controlled substance at d/c from ED?: No Referrals: Michelle Shultz MD [Primary Care Provider] - 1-2 days Time of Disposition: 02:12
--- NOTE | 2020-11-04 02:04 | XR ---
EXAMINATION TYPE: XR finger RT DATE OF EXAM: 11/04/2020 COMPARISON: NONE HISTORY: Thumb pain TECHNIQUE: 3 views FINDINGS: I see no fracture nor dislocation. Spaces are fairly normal. There are no erosions. There a re no pathologic calcifications. IMPRESSION: Negative right thumb exam.
== END 2020-11-04 02:19 | disposition home or self-care (01) ==
LOC: EC 01:22
DX: M79.644 Pain in right finger(s) (principal); J45.909 Unspecified asthma, uncomplicated; Z91.09 Other allergy status, other than to drugs and biological substances; Z91.018 Allergy to other foods
CPT/HCPCS: 99283; 96372; 73140; J1885

== ENCOUNTER 2020-11-09 17:45 | Emergency (ER) | payer OTHER ==
[2020-11-09 18:37] VITALS: BP 138/85; PULSE 73; RESP 18; TEMP 99
[2020-11-09] MEDS ORDERED: IBUPROFEN 600 MG TAB PO STA (20:24)
[2020-11-09] MEDS ORDERED: ACETAMINOPHEN TAB 500 MG TAB PO STA (20:24)
[2020-11-09 21:03] LABS: Appearance,Urine Clear (Clear); Bilirubin,Urine Negative (Negative); Blood,Urine Negative (Negative); Color,Urine Yellow; Glucose,Urine (UA) Negative (Negative); Ketones,Urine Negative (Negative); Leukocyte Esterase,Urine Negative (Negative); Nitrite,Urine Negative (Negative); PH, Urine 5.5 (5.0-8.0); Protein,Urine Negative (Negative); Specific Gravity,Urine 1.026 (1.001-1.035); Urobilinogen,Urine <2.0 mg/dL (<2.0)
--- NOTE | 2020-11-09 21:07 | XR ---
EXAMINATION TYPE: XR chest 2V DATE OF EXAM: 11/09/2020 COMPARISON: 10/24/2020 HISTORY: Chest pain. Body aches. TECHNIQUE: FINDINGS: Heart and mediastinum are normal. Lungs are clear. Diaphragm is normal. Bony thorax is inta ct. IMPRESSION: Normal chest. No change.
--- NOTE | 2020-11-09 21:59 | ED ---
General Adult HPI - General Chief complaint: Recheck/Abnormal Lab/Rx Stated complaint: body aches, muscle spasms Time Seen by Provider: 11/09/20 19:51 Source: patient Mode of arrival: ambulatory Limitations: no limitations - History of Present Illness Initial comments: 20-year-old female with a past medical history of asthma, GERD presents to the emergency room for a chief complaint of body aches. Patient reports that for the past 2 days she has had body aches. States it is worst on the back of her legs and across her arms. Patient reports that she has also had a low-grade fevers of 99.5. She does has not felt well in general. Patient denies any neck stiffness. Denies the Motrin or Tylenol for the past 6 hours. Patient denies any nausea vomiting, diarrhea, abdominal pain. Denies cough congestion sore throat.Patient has no other complaints at this time including shortness of breath, chest pain, abdominal pain, nausea or vomiting, headache, or visual changes. - Related Data Home Medications Medication Instructions Recorded Confirmed Albuterol Sulfate [Proair Hfa] 2 puff INHALATION RT-QID PRN 10/16/20 10/16/20 Previous Rx's Medication Instructions Recorded Ibuprofen [Motrin] 600 mg PO Q8HR PRN #30 tab 11/04/20 Allergies Allergy/AdvReac Type Severity Reaction Status Date / Time aloe vera Allergy Rash/Hives Verified 11/09/20 18:37 gluten AdvReac Nausea & Verified 11/09/20 18:37 Vomiting & Diarrhea Review of Systems ROS Statement: Those systems with pertinent positive or pertinent negative responses have been documented in the HPI. ROS Other: All systems not noted in ROS Statement are negative. Past Medical History Past Medical History: Asthma, GERD/Reflux Additional Past Medical History / Comment(s): vertigo, History of Any Multi-Drug Resistant Organisms: None Reported Past Surgical History: No Surgical Hx Reported Additional Past Surgical History / Comment(s): EGD, wisdom teeth extractions. Past Anesthesia/Blood Transfusion Reactions: No Reported Reaction Past Psychological History: Anxiety, Bipolar, Depression, PTSD Smoking Status: Never smoker Past Alcohol Use History: Occasional Past Drug Use History: Marijuana - Past Family History Father Additional Family Medical History / Comment(s): Anxiety, depression, bipolar, cholecystectomy Mother Family Medical History: Thyroid Disorder Additional Family Medical History / Comment(s): Anxiety, depression. General Exam Limitations: no limitations General appearance: alert, in no apparent distress Head exam: Present: atraumatic, normocephalic, normal inspection Eye exam: Present: normal appearance, PERRL, EOMI. Absent: scleral icterus, conjunctival injection, periorbital swelling ENT exam: Present: normal exam, mucous membranes moist Neck exam: Present: normal inspection, full ROM. Absent: tenderness, meningismus, lymphadenopathy Respiratory exam: Present: normal lung sounds bilaterally. Absent: respiratory distress, wheezes, rales, rhonchi, stridor Cardiovascular Exam: Present: regular rate, normal rhythm, normal heart sounds. Absent: systolic murmur, diastolic murmur, rubs, gallop, clicks GI/Abdominal exam: Present: soft, normal bowel sounds. Absent: distended, tenderness, guarding, rebound, rigid Neurological exam: Present: alert Course Vital Signs 11/09/20 18:33 Temperature 99.0 F Pulse Rate 73 Respiratory 18 Rate Blood Pressure 138/85 O2 Sat by Pulse 96 Oximetry Medical Decision Making - Medical Decision Making Vitals are stable. Patient is well-appearing. Patient presents for body aches that have been ongoing for 2 days. Urinalysis is unremarkable. [place] is negative. Chest x-ray shows a normal chest. At this time patient is likely experiencing myalgia.May have a viral syndrome. Recommend she take Motrin and Tylenol. She will return for any worsening symptoms. On discharge patient is requesting a test. I will add this and call her with the results. She will hold off on Motrin for the results are back. - Lab Data Lab Results 11/09/20 11/09/20 Range/Units 20:47 20:47 Urine Color Yellow Urine Appearance Clear (Clear) Urine pH 5.5 (5.0-8.0) Ur Specific [place] 1.026 (1.001-1.035) Urine Protein Negative (Negative) Urine Glucose (UA) Negative (Negative) Urine Ketones Negative (Negative) Urine Blood Negative (Negative) Urine Nitrite Negative (Negative) Urine Bilirubin Negative (Negative) Urine Urobilinogen <2.0 (<2.0) mg/dL Ur Leukocyte Esterase Negative (Negative) Coronavirus (PCR) Not Detected (Not Detectd) Disposition Clinical Impression: Myalgia Disposition: HOME SELF-CARE Condition: Good Instructions (If sedation given, give patient instructions): Musculoskeletal Pain (ED) Additional Instructions: Follow-up with your doctor in one to 2 days. Return to the emergency room for any worsening symptoms. Is patient prescribed a controlled substance at d/c from ED?: No Referrals: Michelle Shultz MD [Primary Care Provider] - 1-2 days Time of Disposition: 22:07
== END 2020-11-09 22:12 | disposition home or self-care (01) ==
LOC: EC 17:45
DX: M79.10 Myalgia, unspecified site (principal); J45.909 Unspecified asthma, uncomplicated; Z20.822 Contact with and (suspected) exposure to COVID-19; Z91.018 Allergy to other foods; Z91.048 Other nonmedicinal substance allergy status
CPT/HCPCS: 71046; 81003; 81025; 87635; 99283

== ENCOUNTER 2020-11-13 19:52 | Emergency (ER) | payer OTHER ==
[2020-11-13 20:10] VITALS: TEMP 97.9
--- NOTE | 2020-11-13 21:41 | ED ---
Pediatric SOB HPI - General Chief Complaint: Shortness of Breath Stated Complaint: Asthma,SOB,Dizziness Time Seen by Provider: 11/13/20 20:15 Source: patient, RN notes reviewed, old records reviewed Mode of arrival: wheelchair Limitations: no limitations - History of Present Illness Initial Comments: 20-year-old female presenting with head injury and dyspnea. Patient does have history of asthma, she states she's had a mild cough. No fever. Second c omplaint of head injury with questionable loss consciousness occurred yesterday. Patient was in bed, hit the top of her head. No anticoagulation. No focal numbness or weakness. No abdominal pain nausea vomiting. - Related Data Home Medications Medication Instructions Recorded Confirmed Albuterol Sulfate [Proair Hfa] 2 puff INHALATION RT-QID PRN 10/16/20 11/13/20 Previous Rx's Medication Instructions Recorded Albuterol Sulfate [Proair Hfa] 1 - 2 puff INHALATION Q6HR PRN #1 11/13/20 inhaler predniSONE 50 mg PO DAILY #5 tab 11/13/20 Allergies Allergy/AdvReac Type Severity Reaction Status Date / Time aloe vera Allergy Rash/Hives Verified 11/13/20 20:28 gluten AdvReac Nausea & Verified 11/13/20 20:28 Vomiting & Diarrhea Review of Systems ROS Statement: Those systems with pertinent positive or pertinent negative responses have been documented in the HPI. ROS Other: All systems not noted in ROS Statement are negative. Past Medical History Past Medical History: Asthma, GERD/Reflux Additional Past Medical History / Comment(s): vertigo, History of Any Multi-Drug Resistant Organisms: None Reported Past Surgical History: No Surgical Hx Reported Additional Past Surgical History / Comment(s): EGD, wisdom teeth extractions. Past Anesthesia/Blood Transfusion Reactions: No Reported Reaction Past Psychological History: Anxiety, Bipolar, Depression, PTSD Smoking Status: Never smoker Past Alcohol Use History: Occasional Past Drug Use History: Marijuana - Past Family History Father Additional Family Medical History / Comment(s): Anxiety, depression, bipolar, cholecystectomy Mother Family Medical History: Thyroid Disorder Additional Family Medical History / Comment(s): Anxiety, depression. General Exam Limitations: no limitations General appearance: alert, in no apparent distress Head exam: Present: atraumatic, normocephalic Eye exam: Present: normal appearance, PERRL ENT exam: Present: normal exam Neck exam: Present: normal inspection. Absent: tenderness, meningismus Respiratory exam: Present: decreased breath sounds. Absent: respiratory distress, wheezes, rales Cardiovascular Exam: Present: regular rate, normal rhythm GI/Abdominal exam: Present: soft. Absent: distended, tenderness, guarding Extremities exam: Present: normal inspection, normal capillary refill. Absent: pedal edema, calf tenderness Neurological exam: Present: alert, oriented X3, CN II-XII intact. Absent: motor sensory deficit Psychiatric exam: Present: normal affect, normal mood Skin exam: Present: warm, dry, intact. Absent: cyanosis, diaphoretic Course Vital Signs 11/13/20 20:06 Temperature 97.9 F Pulse Rate 87 Respiratory 20 Rate Blood Pressure 119/66 O2 Sat by Pulse 99 Oximetry Medical Decision Making - Medical Decision Making EKG: Normal sinus rhythm, LVH, rate 94, CA interval 166, QRS duration 96, QTC [address] segment elevation. CT performed for head injury, possible loss consciousness, negative for intracranial hemorrhage or mass effect. Chest x-ray negative for pneumothorax or acute cardiopulmonary findings, mild leukocytosis, normal CBC, normal CMP. Patient will be prescribed short course of steroids and albuterol inhaler. Return parameters discussed. Follow up with primary care physician. - Lab Data Result diagrams: 11/13/20 20:44 11/13/20 22:03 Lab Results 11/13/20 11/13/20 11/13/20 Range/Units 20:44 20:44 20:44 WBC 11.1 H (3.8-10.6) k/uL RBC 4.34 (3.80-5.40) m/uL Hgb 12.3 (11.4-16.0) gm/dL Hct 37.2 (34.0-46.0) % MCV 85.6 (80.0-100.0) fL MCH 28.3 (25.0-35.0) pg MCHC 33.1 (31.0-37.0) g/dL RDW 14.0 (11.5-15.5) % Plt Count 346 (150-450) k/uL MPV 6.9 Neutrophils % 74 % Lymphocytes % 18 % Monocytes % 5 % Eosinophils % 1 % Basophils % 0 % Neutrophils # 8.2 H (1.3-7.7) k/uL Lymphocytes # 2.0 (1.0-4.8) k/uL Monocytes # 0.6 (0-1.0) k/uL Eosinophils # 0.1 (0-0.7) k/uL Basophils # 0.0 (0-0.2) k/uL PT 9.8 (9.0-12.0) sec INR 0.9 (<1.2) APTT 24.7 (22.0-30.0) sec Sodium 124 L (137-145) mmol/L Potassium 4.6 (3.5-5.1) mmol/L Chloride 104 (98-107) mmol/L Carbon Dioxide 24 (22-30) mmol/L Anion Gap -4 mmol/L BUN 8 (7-17) mg/dL Creatinine 0.45 L (0.52-1.04) mg/dL Est GFR (CKD-EPI)AfAm >90 (>60 ml/min/1.73 sqM) Est GFR (CKD-EPI)NonAf >90 (>60 ml/min/1.73 sqM) Glucose 116 H (74-99) mg/dL Plasma Lactic Acid Patrick (0.7-2.0) mmol/L Calcium 9.3 (8.4-10.2) mg/dL Magnesium 1.9 (1.6-2.3) mg/dL Total Bilirubin 0.4 (0.2-1.3) mg/dL AST 30 (14-36) U/L ALT 17 (4-34) U/L Alkaline Phosphatase 66 (38-126) U/L Total Protein 7.2 (6.3-8.2) g/dL Albumin 4.0 (3.5-5.0) g/dL 11/13/20 11/13/20 Range/Units 20:44 22:03 WBC (3.8-10.6) k/uL RBC (3.80-5.40) m/uL Hgb (11.4-16.0) gm/dL Hct (34.0-46.0) % MCV (80.0-100.0) fL MCH (25.0-35.0) pg MCHC (31.0-37.0) g/dL RDW (11.5-15.5) % Plt Count (150-450) k/uL MPV Neutrophils % % Lymphocytes % % Monocytes % % Eosinophils % % Basophils % % Neutrophils # (1.3-7.7) k/uL Lymphocytes # (1.0-4.8) k/uL Monocytes # (0-1.0) k/uL Eosinophils # (0-0.7) k/uL Basophils # (0-0.2) k/uL PT (9.0-12.0) sec INR (<1.2) APTT (22.0-30.0) sec Sodium 139 (137-145) mmol/L Potassium 4.1 (3.5-5.1) mmol/L Chloride 105 (98-107) mmol/L Carbon Dioxide 26 (22-30) mmol/L Anion Gap 8 mmol/L BUN 8 (7-17) mg/dL Creatinine 0.49 L (0.52-1.04) mg/dL Est GFR (CKD-EPI)AfAm >90 (>60 ml/min/1.73 sqM) Est GFR (CKD-EPI)NonAf >90 (>60 ml/min/1.73 sqM) Glucose 108 H (74-99) mg/dL Plasma Lactic Acid Patrick 1.7 (0.7-2.0) mmol/L Calcium 9.3 (8.4-10.2) mg/dL Magnesium (1.6-2.3) mg/dL Total Bilirubin (0.2-1.3) mg/dL AST (14-36) U/L ALT (4-34) U/L Alkaline Phosphatase (38-126) U/L Total Protein (6.3-8.2) g/dL Albumin (3.5-5.0) g/dL Disposition Clinical Impression: Asthma, Concussion Disposition: HOME SELF-CARE Condition: Good Instructions (If sedation given, give patient instructions): Asthma (ED), Concussion (ED) Prescriptions: predniSONE 50 mg PO DAILY #5 tab Albuterol Sulfate [Proair Hfa] 1 - 2 puff INHALATION Q6HR PRN #1 inhaler PRN Reason: Respiratory Distress Is patient prescribed a controlled substance at d/c from ED?: No Referrals: Michelle Shultz MD [Primary Care Provider] - 1-2 days Time of Disposition: 22:41
[2020-11-13 21:43] LABS: Basophils % (A) 0 %; Eosinophils # (A) 0.1 k/uL (0-0.7); Eosinophils % (A) 1 %; HCT 37.2 % (34.0-46.0); HGB 12.3 gm/dL (11.4-16.0); Lymphocytes % (A) 18 %; MCH 28.3 pg (25.0-35.0); MCHC 33.1 g/dL (31.0-37.0); MCV 85.6 fL (80.0-100.0); Mean Platelet Volume 6.9; Monocytes # (A) 0.6 k/uL (0-1.0); Monocytes % (A) 5 %; Neutrophils # (A) 8.2 k/uL (1.3-7.7); Neutrophils % (A) 74 %; Platelet Count 346 k/uL (150-450); RBC 4.34 m/uL (3.80-5.40); WBC 11.1 k/uL (3.8-10.6)
--- NOTE | 2020-11-13 21:43 | CT ---
EXAMINATION TYPE: CT brain wo con DATE OF EXAM: 11/13/2020 COMPARISON: 09/01/2020 HISTORY: dizziness CT DLP: 1095.4 mGycm Automated exposure control for dose reduction was used. Ventricles have normal size. There is no mass effect nor midline shift. There is no sign of intracran ial hemorrhage. There is no evidence of cerebral edema. Calvarium appears intact. IMPRESSION: Normal unenhanced head CT scan. No change.
--- NOTE | 2020-11-13 21:49 | XR ---
EXAMINATION TYPE: XR chest 2V DATE OF EXAM: 11/13/2020 COMPARISON: 11/09/2020 HISTORY: Body aches. Difficulty breathing. TECHNIQUE: FINDINGS: Heart and mediastinum are normal. Lungs are clear. Diaphragm is normal. Bony thorax is inta ct. There are chest leads. IMPRESSION: Normal chest. No change.
[2020-11-13 21:58] LABS: ALT 17 U/L (4-34); African American GFR (CKD) >90 (>60 ml/min/1.73 sqM); Anion Gap -4 mmol/L; Blood Urea Nitrogen 8 mg/dL (7-17); Calcium 9.3 mg/dL (8.4-10.2); Carbon Dioxide 24 mmol/L (22-30); Chloride 104 mmol/L (98-107); Glucose 116 mg/dL (74-99); Non-African American GFR(CKD) >90 (>60 ml/min/1.73 sqM); Sodium 124 mmol/L (137-145); Total Bilirubin 0.4 mg/dL (0.2-1.3); Total Protein 7.2 g/dL (6.3-8.2)
[2020-11-13 22:01] LABS: AST 30 U/L (14-36); Alkaline Phosphatase 66 U/L (38-126); Magnesium 1.9 mg/dL (1.6-2.3); Potassium 4.6 mmol/L (3.5-5.1)
[2020-11-13 22:06] LABS: INR 0.9 (<1.2); Partial Thromboplastin Time 24.7 sec (22.0-30.0); Prothrombin Time 9.8 sec (9.0-12.0)
[2020-11-13 22:38] LABS: African American GFR (CKD) >90 (>60 ml/min/1.73 sqM); Anion Gap 8 mmol/L; Blood Urea Nitrogen 8 mg/dL (7-17); Calcium 9.3 mg/dL (8.4-10.2); Carbon Dioxide 26 mmol/L (22-30); Chloride 105 mmol/L (98-107); Glucose 108 mg/dL (74-99); Non-African American GFR(CKD) >90 (>60 ml/min/1.73 sqM); Potassium 4.1 mmol/L (3.5-5.1); Sodium 139 mmol/L (137-145)
[2020-11-13] MEDS ORDERED: ALBUTEROL NEBULIZED 2.5 MG/3 ML INHALATION STA (22:58)
[2020-11-13] MEDS ORDERED: ACETAMINOPHEN TAB 500 MG TAB PO STA (22:58)
[2020-11-13 23:12] VITALS: BP 122/79; RESP 16
[2020-11-13 23:28] VITALS: PULSE 100
== END 2020-11-13 23:38 | disposition home or self-care (01) ==
LOC: EC 19:52
DX: S06.0X9A Concussion with loss of consciousness of unspecified duration, initial encounter (principal); J45.909 Unspecified asthma, uncomplicated; F43.10 Post-traumatic stress disorder, unspecified; F41.9 Anxiety disorder, unspecified; F31.9 Bipolar disorder, unspecified; F12.90 Cannabis use, unspecified, uncomplicated; Z72.89 Other problems related to lifestyle; Z79.52 Long term (current) use of systemic steroids; Z79.51 Long term (current) use of inhaled steroids; Z81.8 Family history of other mental and behavioral disorders; Z83.49 Family history of other endocrine, nutritional and metabolic diseases; Z91.018 Allergy to other foods; W22.03XA Walked into furniture, initial encounter
CPT/HCPCS: 36415; 70450; 71046; 80048; 80053; 83605; 83735; 84484; 85025; 85610; 85730; 93005; 94640; 99285

== ENCOUNTER 2020-11-30 19:57 | Emergency (ER) | payer OTHER ==
[2020-11-30] MEDS ORDERED: IPRATROPIUM-ALBUTEROL 3 ML NEB INHALATION STA (20:04)
--- NOTE | 2020-11-30 20:07 | ED ---
General Adult HPI - General Stated complaint: KERA Time Seen by Provider: 11/30/20 20:01 Source: patient, EMS Mode of arrival: EMS Limitations: no limitations - History of Present Illness Initial comments: Dictation was produced using [employer] dictation software. please excuse any grammatical, word or spelling errors. Chief Complaint: 20-year-old female presents to the emergency department for dyspnea History of Present Illness: A 20-year-old female she works at the local [employer]. She did have a ride home. She started to walk home when all of a sudden she st arted to feel shortness of breath and palpitations. Patient is a history of asthma. She takes asthma medications. She called EMS and patient was brought to the emergency department. Patient lives nearby the hospital. Denies any fever, chills or night sweats. No cough. The ROS documented in this emergency department record has been reviewed and confirmed by me. Those systems with pertinent positive or negative responses have been documented in the HPI. All other systems are other negative and/or noncontributory. PHYSICAL EXAM: General Impression: Alert and oriented x3, not in acute distress, morbidly obese HEENT: Normocephalic atraumatic, extra-ocular movements intact, pupils equal and reactive to light bilaterally, mucous membranes moist. Cardiovascular: Heart regular rate and rhythm, no murmurs Chest: Able to complete full sentences, no retractions, no tachypnea, clear to auscultation bilaterally Abdomen: abdomen soft, non-tender, non-distended, no organomegaly Musculoskeletal: Pulses present and equal in all extremities, no peripheral edema Motor: no focal deficits noted Neurological: CN II-XII grossly intact, no focal motor or sensory deficits noted Skin: Intact with no visualized rashes Psych: Normal affect and mood ED course: 20-year-old female presents to the emergency department for concerns of asthma exacerbation and palpitations. Vital signs upon arrival are within acceptable limits. Patient's lungs are clear to auscultation bilaterally. She is well-appearing and comfortable at the bedside. She would like a DuoNeb. EKGs benign. Vital signs are stable. Patient in no acute distress. EKG shows normal sinus rhythm however there is a an S1 every 3 T3 pattern that does not appear to be present on EKG from 11/13/2020.D-dimer is normal. Patient well- appearing at bedside after DuoNeb. Patient be discharged. EKG interpretation: Ventricular rate 82, normal sinus rhythm,. 160, QS 90, QTc 443. No GA prolongation, no QTC prolongation, no ST or T-wave changes noted. - Related Data Home Medications Medication Instructions Recorded Confirmed Albuterol Sulfate [Proair Hfa] 2 puff INHALATION RT-QID PRN 10/16/20 11/13/20 Previous Rx's Medication Instructions Recorded Albuterol Sulfate [Proair Hfa] 1 - 2 puff INHALATION Q6HR PRN #1 11/13/20 inhaler predniSONE 50 mg PO DAILY #5 tab 11/13/20 Allergies Allergy/AdvReac Type Severity Reaction Status Date / Time aloe vera Allergy Rash/Hives Verified 11/13/20 20:28 gluten AdvReac Nausea & Verified 11/13/20 20:28 Vomiting & Diarrhea Review of Systems ROS Statement: Those systems with pertinent positive or pertinent negative responses have been documented in the HPI. ROS Other: All systems not noted in ROS Statement are negative. Past Medical History Past Medical History: Asthma, GERD/Reflux Additional Past Medical History / Comment(s): vertigo, History of Any Multi-Drug Resistant Organisms: None Reported Past Surgical History: No Surgical Hx Reported Additional Past Surgical History / Comment(s): EGD, wisdom teeth extractions. Past Anesthesia/Blood Transfusion Reactions: No Reported Reaction Past Psychological History: Anxiety, Bipolar, Depression, PTSD Smoking Status: Never smoker Past Alcohol Use History: Occasional Past Drug Use History: Marijuana - Past Family History Father Additional Family Medical History / Comment(s): Anxiety, depression, bipolar, cholecystectomy Mother Family Medical History: Thyroid Disorder Additional Family Medical History / Comment(s): Anxiety, depression. General Exam Limitations: no limitations Course Vital Signs 11/30/20 11/30/20 11/30/20 20:02 20:29 20:37 Temperature 98.5 F Pulse Rate 74 92 92 Respiratory 17 Rate Blood Pressure 131/74 O2 Sat by Pulse 96 Oximetry Medical Decision Making - Lab Data Lab Results 11/30/20 Range/Units 20:42 D-Dimer 0.27 (<0.60) mg/L FEU Disposition Clinical Impression: Dyspnea Disposition: HOME SELF-CARE Condition: Good Instructions (If sedation given, give patient instructions): Asthma (ED) Is patient prescribed a controlled substance at d/c from ED?: No Referrals: Michelle Shultz MD [Primary Care Provider] - 1-2 days
[2020-11-30 21:22] VITALS: BP 133/71; PULSE 88; RESP 16; TEMP 98.4
== END 2020-11-30 21:22 | disposition home or self-care (01) ==
LOC: EC 19:57
DX: R06.00 Dyspnea, unspecified (principal); R00.2 Palpitations; J45.909 Unspecified asthma, uncomplicated; E66.01 Morbid (severe) obesity due to excess calories; Z68.44 Body mass index [BMI] 60.0-69.9, adult; Z91.018 Allergy to other foods; Z91.09 Other allergy status, other than to drugs and biological substances
CPT/HCPCS: 36415; 85379; 93005; 94640; 99285

== ENCOUNTER 2020-12-02 17:25 | Emergency (ER) | payer OTHER ==
[2020-12-02 17:42] VITALS: RESP 18; TEMP 97.9
[2020-12-02] MEDS ORDERED: IPRATROPIUM-ALBUTEROL 3 ML NEB INHALATION STA (17:59)
--- NOTE | 2020-12-02 18:27 | ED ---
General Adult HPI - General Chief complaint: Shortness of Breath Stated complaint: SOB, Dizziness, weakness Time Seen by Provider: 12/02/20 17:43 Source: patient, EMS Mode of arrival: EMS Limitations: no limitations - History of Present Illness Initial comments: 20-year-old female with history of anxiety and asthma presents to emergency Department with a chief complaint of shortness of breath. Patient reports her symptoms of abdominal for the past several days. States she was in emergency department yesterday for asthma exacerbation which has since mostly resolved. However, today she began to experience similar symptoms where she cannot take a deep breath but denies any associated chest pain. She denies any wheezing does report a nonproductive cough. She also reports feeling generalized weakness. She had C covid-19in feels that her lungs had never fully recovered since. She denies any fevers or chills. - Related Data Home Medications Medication Instructions Recorded Confirmed Acetaminophen Tab [Tylenol Tab] 1,000 mg PO Q6HR PRN 12/02/20 12/02/20 Albuterol Sulfate [Proair Hfa] 1 - 2 puff INHALATION RT-Q6H PRN 12/02/20 12/02/20 Allergies Allergy/AdvReac Type Severity Reaction Status Date / Time aloe vera Allergy Rash/Hives Verified 12/02/20 18:50 gluten AdvReac Nausea & Verified 12/02/20 18:50 Vomiting & Diarrhea Review of Systems ROS Statement: Those systems with pertinent positive or pertinent negative responses have been documented in the HPI. ROS Other: All systems not noted in ROS Statement are negative. Past Medical History Past Medical History: Asthma, GERD/Reflux Additional Past Medical History / Comment(s): vertigo, History of Any Multi-Drug Resistant Organisms: None Reported Past Surgical History: No Surgical Hx Reported Additional Past Surgical History / Comment(s): EGD, wisdom teeth extractions. Past Anesthesia/Blood Transfusion Reactions: No Reported Reaction Past Psychological History: Anxiety, Bipolar, Depression, PTSD Smoking Status: Never smoker Past Alcohol Use History: Occasional Past Drug Use History: Marijuana - Past Family History Father Additional Family Medical History / Comment(s): Anxiety, depression, bipolar, cholecystectomy Mother Family Medical History: Thyroid Disorder Additional Family Medical History / Comment(s): Anxiety, depression. General Exam Limitations: no limitations General appearance: alert, in no apparent distress, obese (Morbid obesity) Head exam: Present: atraumatic, normocephalic, normal inspection Eye exam: Present: normal appearance, PERRL, EOMI Pupils: Present: normal accommodation ENT exam: Present: normal exam, normal oropharynx, mucous membranes moist, TM's normal bilaterally, normal external ear exam Neck exam: Present: normal inspection, full ROM. Absent: tenderness Respiratory exam: Present: normal lung sounds bilaterally. Absent: respiratory distress, wheezes, rales, rhonchi, stridor, chest wall tenderness, accessory muscle use Cardiovascular Exam: Present: regular rate, normal rhythm, normal heart sounds. Absent: systolic murmur, diastolic murmur GI/Abdominal exam: Present: soft. Absent: distended, tenderness, guarding Extremities exam: Present: normal inspection, full ROM, normal capillary refill. Absent: tenderness, pedal edema, joint swelling Back exam: Present: normal inspection, full ROM. Absent: tenderness, CVA tenderness (R), CVA tenderness (L), muscle spasm, paraspinal tenderness, vertebral tenderness Neurological exam: Present: alert, oriented X3 Psychiatric exam: Present: normal affect, normal mood Skin exam: Present: warm, dry, intact, normal color Course Vital Signs 12/02/20 12/02/20 12/02/20 17:40 18:30 18:39 Temperature 97.9 F Pulse Rate 97 75 78 Respiratory 18 Rate Blood Pressure 116/74 O2 Sat by Pulse 98 Oximetry 12/02/20 19:21 Temperature Pulse Rate 85 Respiratory 18 Rate Blood Pressure 137/80 O2 Sat by Pulse 99 Oximetry Medical Decision Making - Medical Decision Making 20-year-old female with history of anxiety and asthma presents to emergency Department with a chief complaint of shortness of breath on physical exa mination, patient does not appear to be in respiratory distress. Able to finish complete sentences without any difficulties. Oxygen saturation without normal limits. Vital signs are within normal limits. EKG showed no acute changes. Chest x-ray is unremarkable. Patient does appear to be anxious which she believes to be the cause of her symptoms. Patient was given a breathing treatment with some improvement in symptoms. I reviewed her medical records, she had a negative d-dimer yesterday. I offer laboratory work, patient declined. I also offer CT imaging, she declined. Patient reports she would like to follow-up with the primary care physician and be restarted on her antianxiety medication. Strict return parameters were thoroughly discussed patient was understanding and agreeable. Case discussed with physician. - Lab Data Lab Results 12/02/20 Range/Units 18:03 Urine HCG, Qual Not Detected (Not Detectd) Disposition Clinical Impression: Acute anxiety Disposition: HOME SELF-CARE Condition: Stable Instructions (If sedation given, give patient instructions): Asthma (ED) Additional Instructions: Please return to the Emergency Department if symptoms worsen or any other conc erns. Is patient prescribed a controlled substance at d/c from ED?: No Referrals: Michelle Shultz MD [Primary Care Provider] - 1-2 days Time of Disposition: 19:12
--- NOTE | 2020-12-02 19:16 | XR ---
EXAMINATION TYPE: XR chest 2V DATE OF EXAM: 12/02/2020 COMPARISON: 11/13/2020 HISTORY: Shortness of breath TECHNIQUE: Frontal and lateral views of the chest are obtained. FINDINGS AND IMPRESSION: No focal airspace disease, pneumothorax or pleural effusion. Mild peribronchial cuffing and central congestion suggests small airway disease. Cardiac mediastinal silhouette is within normal limit. No acute osseous abnormality.
[2020-12-02 19:22] VITALS: BP 137/80; PULSE 85
== END 2020-12-02 19:22 | disposition home or self-care (01) ==
LOC: EC 17:25
DX: F41.9 Anxiety disorder, unspecified (principal); R06.02 Shortness of breath; J45.909 Unspecified asthma, uncomplicated; E66.01 Morbid (severe) obesity due to excess calories; Z68.44 Body mass index [BMI] 60.0-69.9, adult; Z91.09 Other allergy status, other than to drugs and biological substances; Z91.018 Allergy to other foods; Z86.16 Personal history of COVID-19
CPT/HCPCS: 71046; 81025; 93005; 94640; 99285

== ENCOUNTER 2020-12-17 22:05 | Emergency (ER) | payer OTHER ==
[2020-12-17 22:20] VITALS: BP 139/90; PULSE 100; RESP 20; TEMP 98.1
[2020-12-17] MEDS ORDERED: ACETAMINOPHEN TAB 500 MG TAB PO STA (22:43)
[2020-12-17] MEDS ORDERED: IBUPROFEN 800 MG TAB PO STA (22:43)
--- NOTE | 2020-12-17 23:05 | ED ---
Dizziness HPI - General Chief Complaint: Dizziness Stated Complaint: Fever Time Seen by Provider: 12/17/20 22:06 Source: patient, EMS, RN notes reviewed, old records reviewed Mode of arrival: EMS Limitations: no limitations - History of Present Illness Initial Comments: This is a 20-year-old female well-known to this in our emergency department. Patient presents to the ER today for evaluation, patient is presenting with complaints of possible with positive test at home, weakness sweating and fevers. Occasionally dizzy. Patient has no significant medical history takes no significant medications on a daily basis. MD Complaint: dizziness, other (Patient feels hot and sweaty) -: hour(s) Description: lightheadedness History of Same: Yes History of Trauma: No Severity: mild Improves With: nothing Worsens With: nothing Associated Symptoms: diaphoresis, other (Patient does feel feverish) - Related Data Home Medications Medication Instructions Recorded Confirmed Acetaminophen Tab [Tylenol Tab] 1,000 mg PO Q6HR PRN 12/02/20 12/17/20 Albuterol Sulfate [Proair Hfa] 2 puff INHALATION RT-Q6H PRN 12/02/20 12/17/20 Allergies Allergy/AdvReac Type Severity Reaction Status Date / Time aloe vera Allergy Rash/Hives Verified 12/17/20 22:23 gluten AdvReac Nausea & Verified 12/17/20 22:23 Vomiting & Diarrhea Review of Systems ROS Statement: Those systems with pertinent positive or pertinent negative responses have been documented in the HPI. ROS Other: All systems not noted in ROS Statement are negative. Past Medical History Past Medical History: Asthma, GERD/Reflux Additional Past Medical History / Comment(s): vertigo, History of Any Multi-Drug Resistant Organisms: None Reported Past Surgical History: No Surgical Hx Reported Additional Past Surgical History / Comment(s): EGD, wisdom teeth extractions. Past Anesthesia/Blood Transfusion Reactions: No Reported Reaction Past Psychological History: Anxiety, Bipolar, Depression, PTSD Smoking Status: Never smoker Past Alcohol Use History: Occasional Past Drug Use History: None Reported - Past Family History Father Additional Family Medical History / Comment(s): Anxiety, depression, bipolar, cholecystectomy Mother Family Medical History: Thyroid Disorder Additional Family Medical History / Comment(s): Anxiety, depression. General Exam Limitations: no limitations General appearance: alert, in no apparent distress Head exam: Present: atraumatic, normocephalic, normal inspection Eye exam: Present: normal appearance, PERRL, EOMI. Absent: scleral icterus, conjunctival injection, periorbital swelling ENT exam: Present: normal exam, mucous membranes moist Neck exam: Present: normal inspection. Absent: tenderness, meningismus, lymphadenopathy Respiratory exam: Present: normal lung sounds bilaterally. Absent: respiratory distress, wheezes, rales, rhonchi, stridor Cardiovascular Exam: Present: regular rate, normal rhythm, normal heart sounds. Absent: systolic murmur, diastolic murmur, rubs, gallop, clicks GI/Abdominal exam: Present: soft, normal bowel sounds. Absent: distended, tenderness, guarding, rebound, rigid Extremities exam: Present: normal inspection, full ROM, normal capillary refill. Absent: tenderness, pedal edema, joint swelling, calf tenderness Back exam: Present: normal inspection Neurological exam: Present: alert, oriented X3, CN II-XII intact Psychiatric exam: Present: normal affect, normal mood Skin exam: Present: warm, dry, intact, normal color. Absent: rash Course Vital Signs 12/17/20 22:14 Temperature 98.1 F Pulse Rate 100 Respiratory 20 Rate Blood Pressure 139/90 O2 Sat by Pulse 98 Oximetry - Reevaluation(s) Reevaluation #1: 12/18/20 00:13 Medical record is reviewed Reevaluation #2: Patient remains without complaint, afebrile here in the ER Reevaluation #3: 12/17/20 Patient informed of results and questions are answered Medical Decision Making - Medical Decision Making 1 female DF for multiple complaints, well-known to our emergency department. Patient at this point is without significant findings, normal exam normal x-ray negative urine . Patient can be discharged home - Lab Data Lab Results 12/17/20 12/17/20 Range/Units 23:01 23:01 Urine Color Yellow Urine Appearance Clear (Clear) Urine pH 6.0 (5.0-8.0) Ur Specific [place] 1.027 (1.001-1.035) Urine Protein Trace H (Negative) Urine Glucose (UA) Negative (Negative) Urine Ketones Negative (Negative) Urine Blood Negative (Negative) Urine Nitrite Negative (Negative) Urine Bilirubin Negative (Negative) Urine Urobilinogen <2.0 (<2.0) mg/dL Ur Leukocyte Esterase Negative (Negative) Urine HCG, Qual Not Detected (Not Detectd) - Radiology Data Radiology results: report reviewed (Chest x-rays negative for acute disease), image reviewed Disposition Clinical Impression: Fever, Viral illness Disposition: HOME SELF-CARE Condition: Good Instructions (If sedation given, give patient instructions): Fever in Adults (ED), Viral Syndrome (ED), Dizziness (ED) Is patient prescribed a controlled substance at d/c from ED?: No Referrals: Michelle Shultz MD [Primary Care Provider] - 1-2 days
--- NOTE | 2020-12-17 23:20 | XR ---
EXAMINATION TYPE: XR chest 2V DATE OF EXAM: 12/17/2020 COMPARISON: 12/02/2020 HISTORY: Short of breath TECHNIQUE: 2 views FINDINGS: Heart and mediastinum are normal. Lungs are clear. Diaphragm is normal. Bony thorax is inta ct IMPRESSION: Normal chest. No change.
[2020-12-17 23:28] LABS: Appearance,Urine Clear (Clear); Bilirubin,Urine Negative (Negative); Blood,Urine Negative (Negative); Color,Urine Yellow; Glucose,Urine (UA) Negative (Negative); Ketones,Urine Negative (Negative); Leukocyte Esterase,Urine Negative (Negative); Nitrite,Urine Negative (Negative); Protein,Urine Trace (Negative); Specific Gravity,Urine 1.027 (1.001-1.035); Urobilinogen,Urine <2.0 mg/dL (<2.0)
== END 2020-12-17 23:59 | disposition home or self-care (01) ==
LOC: EC 22:05
DX: B34.9 Viral infection, unspecified (principal); R42 Dizziness and giddiness; J45.909 Unspecified asthma, uncomplicated; Z91.09 Other allergy status, other than to drugs and biological substances; Z91.018 Allergy to other foods
CPT/HCPCS: 71046; 81003; 81025; 99284

== ENCOUNTER 2020-12-19 03:39 | Emergency (ER) | payer OTHER ==
[2020-12-19 03:47] VITALS: BP 128/85; PULSE 90; RESP 20; TEMP 98.3
[2020-12-19] MEDS ORDERED: ONDANSETRON ODT 4 MG TAB PO STA (04:17)
[2020-12-19] MEDS ORDERED: hydrOXYzine pamoate 25 MG CAP PO STA (04:17)
--- NOTE | 2020-12-19 04:18 | ED ---
Anxiety HPI - General Chief Complaint: Anxiety Stated Complaint: Anxiety Time Seen by Provider: 12/19/20 03:43 Source: patient, RN notes reviewed, old records reviewed Mode of arrival: ambulatory Limitations: no limitations - History of Present Illness Initial Comments: This is a 20-year-old female to the ER patient presents today for evaluation of what she describes as anxiety attack. Patient states that she is having increased anxiety and shakiness with nausea, he symptoms began after she was watching her cousin. She is unable to stop them even with turning her mental stress exercises. Patient has no life stressor or any new event happened. Patient homicidal or suicidal, no drugs or alcohol MD Complaint: anxiety -: hour(s) Symptoms: dyspnea, palpitations Place: home Previous History of Same: Yes Severity: moderate Quality: constant Provoking factors: none known Improves With: nothing Worsens With: nothing Associated symptoms: palpitations, nausea/vomiting - Related Data Home Medications: Home Medications Medication Instructions Recorded Confirmed Acetaminophen Tab [Tylenol Tab] 1,000 mg PO Q6HR PRN 12/02/20 12/17/20 Albuterol Sulfate [Proair Hfa] 2 puff INHALATION RT-Q6H PRN 12/02/20 12/17/20 Allergies/Adverse Reactions: Allergies Allergy/AdvReac Type Severity Reaction Status Date / Time aloe vera Allergy Rash/Hives Verified 12/19/20 03:47 gluten AdvReac Nausea & Verified 12/19/20 03:47 Vomiting & Diarrhea Review of Systems ROS Statement: Those systems with pertinent positive or pertinent negative responses have been documented in the HPI. ROS Other: All systems not noted in ROS Statement are negative. Past Medical History Past Medical History: Asthma, GERD/Reflux Additional Past Medical History / Comment(s): vertigo, History of Any Multi-Drug Resistant Organisms: None Reported Past Surgical History: No Surgical Hx Reported Additional Past Surgical History / Comment(s): EGD, wisdom teeth extractions. Past Anesthesia/Blood Transfusion Reactions: No Reported Reaction Past Psychological History: Anxiety, Bipolar, Depression, PTSD Smoking Status: Never smoker Past Alcohol Use History: Occasional Past Drug Use History: Marijuana - Past Family History Father Additional Family Medical History / Comment(s): Anxiety, depression, bipolar, cholecystectomy Mother Family Medical History: Thyroid Disorder Additional Family Medical History / Comment(s): Anxiety, depression. General Exam Limitations: no limitations General appearance: alert, in no apparent distress, anxious Head exam: Present: atraumatic, normocephalic, normal inspection Eye exam: Present: normal appearance, PERRL, EOMI. Absent: scleral icterus, conjunctival injection, periorbital swelling ENT exam: Present: normal exam, mucous membranes moist Neck exam: Present: normal inspection. Absent: tenderness, meningismus, lymphadenopathy Respiratory exam: Present: normal lung sounds bilaterally. Absent: respiratory distress, wheezes, rales, rhonchi, stridor Cardiovascular Exam: Present: regular rate, normal rhythm, normal heart sounds. Absent: systolic murmur, diastolic murmur, rubs, gallop, clicks GI/Abdominal exam: Present: soft, normal bowel sounds. Absent: distended, tenderness, guarding, rebound, rigid Extremities exam: Present: normal inspection, full ROM, normal capillary refill. Absent: tenderness, pedal edema, joint swelling, calf tenderness Back exam: Present: normal inspection Neurological exam: Present: alert, oriented X3, CN II-XII intact Psychiatric exam: Present: normal affect, normal mood Skin exam: Present: warm, dry, intact, normal color. Absent: rash Course Vital Signs 12/19/20 03:42 Temperature 98.3 F Pulse Rate 90 Respiratory 20 Rate Blood Pressure 128/85 O2 Sat by Pulse 98 Oximetry - Reevaluation(s) Reevaluation #1: 12/19/20 04:22 Medical record is reviewed Reevaluation #2: 12/19/20 04:22 Patient is feeling better here in the ER Medical Decision Making - Medical Decision Making 20 female to the ER for evaluation patient having mild anxiety, symptoms improved here in the ER, patient can be discharged home Disposition Clinical Impression: Acute anxiety Disposition: HOME SELF-CARE Condition: Good Instructions (If sedation given, give patient instructions): Generalized Anxiety Disorder (ED) Is patient prescribed a controlled substance at d/c from ED?: No Referrals: Michelle Shultz MD [Primary Care Provider] - 1-2 days
== END 2020-12-19 04:48 | disposition home or self-care (01) ==
LOC: EC 03:39
DX: F41.9 Anxiety disorder, unspecified (principal); J45.909 Unspecified asthma, uncomplicated; Z91.09 Other allergy status, other than to drugs and biological substances; Z91.018 Allergy to other foods
CPT/HCPCS: 99284

== ENCOUNTER 2020-12-27 00:45 | Emergency (ER) | payer OTHER ==
[2020-12-27 00:52] VITALS: BP 135/78; PULSE 110; RESP 20; TEMP 98.6
[2020-12-27] MEDS ORDERED: ORPHENADRINE 30 MG/ML 2 ML VIAL IM STA (01:07)
[2020-12-27] MEDS ORDERED: KETOROLAC 15 MG/ML 1 ML VIAL IM STA (01:07)
--- NOTE | 2020-12-27 01:07 | ED ---
Neck Injury/Pain HPI - General Chief Complaint: Neck Pain/Injury Stated Complaint: Neck Pain Time Seen by Provider: 12/27/20 00:56 Mode of arrival: ambulatory - History of Present Illness Initial Comments: This patient is a 20-year-old woman who presents with right neck and right shoulder pain and tightness. The patient states that she no succumbing on 3-4 days ago. She thought that she had slept in a funny position. The patient states that the pain is moderate to severe. She indicates the area of the right trapezius. She states that the pain gets a little better if she presses on the muscle. Clear arm and some positions will make the pain a little worse. She tried taking Tylenol at home which only gave minimal relief from the symptoms. She is not having weakness or numbness of the extremity. She did not have any traumatic impact. MD Complaint: neck pain Onset/Timin -: days(s) Place: home Radiation: right lateral Severity: moderate Quality: aching Consistency: constant Worsens With: movement of extremity Context: other Associated Symptoms: none Treatments Prior to Arrival: Acetaminophen - Related Data Home Medications Medication Instructions Recorded Confirmed Acetaminophen Tab [Tylenol Tab] 1,000 mg PO Q6HR PRN 12/02/20 12/17/20 Albuterol Sulfate [Proair Hfa] 2 puff INHALATION RT-Q6H PRN 12/02/20 12/17/20 Previous Rx's Medication Instructions Recorded Ibuprofen 800 mg PO TID #20 tablet 12/27/20 Methocarbamol [Robaxin-750] 750 mg PO TID PRN #30 tablet 12/27/20 Allergies Allergy/AdvReac Type Severity Reaction Status Date / Time aloe vera Allergy Rash/Hives Verified 12/27/20 00:52 gluten AdvReac Nausea & Verified 12/27/20 00:52 Vomiting & Diarrhea Review of Systems ROS Statement: Those systems with pertinent positive or pertinent negative responses have been documented in the HPI. ROS Other: All systems not noted in ROS Statement are negative. Constitutional: Denies: fever, chills, weakness Respiratory: Denies: cough, dyspnea Cardiovascular: Denies: chest pain, palpitations Gastrointestinal: Denies: abdominal pain Musculoskeletal: Reports: myalgia Skin: Denies: rash, lesions Neurological: Denies: headache, weakness, numbness, paresthesias Past Medical History Past Medical History: Asthma, GERD/Reflux Additional Past Medical History / Comment(s): vertigo, History of Any Multi-Drug Resistant Organisms: None Reported Past Surgical History: No Surgical Hx Reported Additional Past Surgical History / Comment(s): EGD, wisdom teeth extractions. Past Anesthesia/Blood Transfusion Reactions: No Reported Reaction Past Psychological History: Anxiety, Bipolar, Depression, PTSD Smoking Status: Never smoker Past Alcohol Use History: Occasional Past Drug Use History: Marijuana - Past Family History Father Additional Family Medical History / Comment(s): Anxiety, depression, bipolar, cholecystectomy Mother Family Medical History: Thyroid Disorder Additional Family Medical History / Comment(s): Anxiety, depression. General Exam General appearance: alert, in no apparent distress Head exam: Present: atraumatic, normocephalic Eye exam: Present: normal appearance. Absent: scleral icterus, conjunctival injection Neck exam: Present: tenderness, full ROM, other (There is mild tenderness to the right paraspinal muscles and the right trapezius. There is no bony tenderness or deformity.). Absent: meningismus Respiratory exam: Present: normal lung sounds bilaterally. Absent: respiratory distress, wheezes, rales, rhonchi, stridor Cardiovascular Exam: Present: regular rate, normal rhythm, normal heart sounds. Absent: systolic murmur, diastolic murmur, rubs, gallop Extremities exam: Present: full ROM, normal capillary refill. Absent: tenderness Neurological exam: Present: alert. Absent: motor sensory deficit Skin exam: Present: warm, dry, intact, normal color. Absent: rash Course Vital Signs 12/27/20 00:49 Temperature 98.6 F Pulse Rate 110 H Respiratory 20 Rate Blood Pressure 135/78 O2 Sat by Pulse 96 Oximetry Disposition Clinical Impression: Strain of neck muscle Disposition: HOME SELF-CARE Condition: Good Instructions (If sedation given, give patient instructions): Cervical Strain (ED) Prescriptions: Ibuprofen 800 mg PO TID #20 tablet Methocarbamol [Robaxin-750] 750 mg PO TID PRN #30 tablet PRN Reason: pain Is patient prescribed a controlled substance at d/c from ED?: No Referrals: Michelle Shultz MD [Primary Care Provider] - 1-2 days
== END 2020-12-27 01:22 | disposition home or self-care (01) ==
LOC: EC 00:45
DX: S16.1XXA Strain of muscle, fascia and tendon at neck level, initial encounter (principal); J45.909 Unspecified asthma, uncomplicated; Z91.018 Allergy to other foods; Z91.09 Other allergy status, other than to drugs and biological substances; X58.XXXA Exposure to other specified factors, initial encounter; Y92.009 Unspecified place in unspecified non-institutional (private) residence as the place of occurrence of the external cause
CPT/HCPCS: 99283; 96372; J2360

== ENCOUNTER 2020-12-30 16:42 | Emergency (ER) | payer OTHER ==
[2020-12-30] MEDS ORDERED: LORazepam 1 MG TAB PO STA (17:31)
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
[2020-12-30] MEDS ORDERED: ALBUTEROL NEBULIZED 2.5 MG/3 ML INHALATION STA (18:11)
[2020-12-30 18:42] VITALS: BP 110/87; PULSE 90; RESP 18; TEMP 98.1
== END 2020-12-30 18:30 | disposition home or self-care (01) ==
LOC: EC 16:42
DX: F41.9 Anxiety disorder, unspecified (principal); J45.909 Unspecified asthma, uncomplicated; Z91.09 Other allergy status, other than to drugs and biological substances; Z91.018 Allergy to other foods
CPT/HCPCS: 94640; 99283

== ENCOUNTER 2021-01-01 01:13 | Emergency (ER) | payer OTHER ==
[2021-01-01] MEDS ORDERED: ONDANSETRON 4 MG ODT STARTER PACK 2 TAB BTL PO STA (01:46)
--- NOTE | 2021-01-01 01:51 | ED ---
Female Urogenital HPI - General Chief complaint: Vaginal Bleeding Stated complaint: Female Time Seen by Provider: 01/01/21 01:34 Source: patient Mode of arrival: ambulatory Limitations: no limitations - History of Present Illness Initial comments: Patient is a 20-year-old female with history of anxiety, presenting to the emergency Department with a few different female complaints. Patient states her and her boyfriend were having intercourse a couple hours ago, she states they have not had intercourse in a few months, he is "bigger than her normal size" and states it lasted for over an hour. She states afterwards she noticed some blood when she wiped and is also feeling sore. She is concerned that "he caused her to have her period come back." She states she just ended her menstrual cycle 2 days ago. She denies any abdominal pain, no continuous vaginal bleeding, no concerns for STDs. She's had no dysuria, no fevers. She denies being . She states she is just anxious about how she is feeling and wants to make sure nothing is okay. Her anxiety is causing her to have some nausea. She denies any chest pain or shortness of breath. She has no further complaints. Last Menstrual Period: 12/23/20 - Related Data Home Medications Medication Instructions Recorded Confirmed Acetaminophen Tab [Tylenol Tab] 1,000 mg PO Q6HR PRN 12/02/20 12/17/20 Albuterol Sulfate [Proair Hfa] 2 puff INHALATION RT-Q6H PRN 12/02/20 12/17/20 Previous Rx's Medication Instructions Recorded Ibuprofen 800 mg PO TID #20 tablet 12/27/20 Methocarbamol [Robaxin-750] 750 mg PO TID PRN #30 tablet 12/27/20 Allergies Allergy/AdvReac Type Severity Reaction Status Date / Time aloe vera Allergy Rash/Hives Verified 01/01/21 01:28 gluten AdvReac Nausea & Verified 01/01/21 01:28 Vomiting & Diarrhea Review of Systems ROS Statement: Those systems with pertinent positive or pertinent negative responses have been documented in the HPI. ROS Other: All systems not noted in ROS Statement are negative. Past Medical History Past Medical History: Asthma, GERD/Reflux Additional Past Medical History / Comment(s): vertigo, History of Any Multi-Drug Resistant Organisms: None Reported Past Surgical History: No Surgical Hx Reported Additional Past Surgical History / Comment(s): EGD, wisdom teeth extractions. Past Anesthesia/Blood Transfusion Reactions: No Reported Reaction Past Psychological History: Anxiety, Bipolar, Depression, PTSD Smoking Status: Never smoker Past Alcohol Use History: Occasional Past Drug Use History: None Reported - Past Family History Father Additional Family Medical History / Comment(s): Anxiety, depression, bipolar, cholecystectomy Mother Family Medical History: Thyroid Disorder Additional Family Medical History / Comment(s): Anxiety, depression. General Exam - General Exam Comments Initial Comments: GENERAL: Patient is well-developed and well-nourished. Patient is nontoxic and in no acute distress. HEAD: Atraumatic, normocephalic. EYES: Pupils equal round and reactive to light, extraocular movements intact, sclera anicteric, conjunctiva are normal. Eyelids were unremarkable. ENT: Moist mucous membranes. NECK: Normal range of motion, supple without lymphadenopathy or JVD. LUNGS: Unlabored respirations. Breath sounds clear to auscultation bilaterally and equal. No wheezes rales or rhonchi. HEART: Regular rate and rhythm without murmurs, rubs or gallops. ABDOMEN: Soft, nontender, normoactive bowel sounds. No guarding, no rebound. No masses appreciated. : Deferred MUSCULOSKELETAL: Normal extremities with adequate strength and normal range of motion, no pitting or edema. No clubbing or cyanosis. NEUROLOGICAL: Patient is alert and oriented x 3. PSYCH: Normal mood, normal affect. SKIN: Warm, Dry, normal turgor, no rashes or lesions noted. Limitations: no limitations Course Vital Signs 01/01/21 01:21 Temperature 98.7 F Pulse Rate 85 Respiratory 24 Rate Blood Pressure 129/83 O2 Sat by Pulse 98 Oximetry Medical Decision Making - Medical Decision Making Patient is a 20-year-old female here with concerns of vaginal irritation, bleeding after intercourse. Patient has no other alarming symptoms and her history or exam, no abdominal pain no chest pain or shortness of breath. She is having some nausea coming from her anxiety over this. No concerns for STDs, no other vaginal discharge. We discussed refraining from sexual intercourse for a few days to allow her to rest and heal. She can follow up with her PCP. She is stable for discharge. Her some Zofran for her nausea. Disposition Clinical Impression: Vaginal irritation, Nausea Disposition: HOME SELF-CARE Condition: Stable Instructions (If sedation given, give patient instructions): Normal Exam (ED) Additional Instructions: Please return to the Emergency Department if symptoms worsen or any other concerns. Is patient prescribed a controlled substance at d/c from ED?: No Referrals: Michelle Shultz MD [Primary Care Provider] - 1-2 days Time of Disposition: 01:50
[2021-01-01 02:26] VITALS: BP 121/73; PULSE 82; RESP 20; TEMP 98.1
== END 2021-01-01 02:26 | disposition home or self-care (01) ==
LOC: EC 01:13
DX: N89.8 Other specified noninflammatory disorders of vagina (principal); N93.9 Abnormal uterine and vaginal bleeding, unspecified; R11.0 Nausea; J45.909 Unspecified asthma, uncomplicated; Z91.09 Other allergy status, other than to drugs and biological substances; Z91.018 Allergy to other foods
CPT/HCPCS: 99283; S0119

== ENCOUNTER 2021-01-02 20:22 | Emergency (ER) | payer OTHER ==
[2021-01-02 20:25] VITALS: BP 120/81; RESP 20; TEMP 98.5
[2021-01-02] MEDS ORDERED: IPRATROPIUM-ALBUTEROL 3 ML NEB INHALATION STA (20:34)
[2021-01-02 21:10] VITALS: PULSE 64
--- NOTE | 2021-01-02 21:47 | ED ---
SOB HPI - General Chief Complaint: Shortness of Breath Stated Complaint: SOB Time Seen by Provider: 01/02/21 20:28 Source: patient Mode of arrival: ambulatory Limitations: no limitations - History of Present Illness Initial Comments: Patient is a 20-year-old female presenting to the emergency Department with complaints of some shortness of breath. She has a history of asthma, she has been here multiple times for similar complaint. She states she is getting a home nebulizer unit but will be here for another 2 days. She denies any fevers or chills, no cough or congestion. She does have history of anxiety as well. Patient is also requesting a urine test as she is having some mild dysuria. She has no belly pain, no nausea or vomiting. She is no further complaints. Her vitals are stable upon arrival. - Related Data Home Medications Medication Instructions Recorded Confirmed Acetaminophen Tab [Tylenol Tab] 1,000 mg PO Q6HR PRN 12/02/20 12/17/20 Albuterol Sulfate [Proair Hfa] 2 puff INHALATION RT-Q6H PRN 12/02/20 12/17/20 Previous Rx's Medication Instructions Recorded Ibuprofen 800 mg PO TID #20 tablet 12/27/20 Methocarbamol [Robaxin-750] 750 mg PO TID PRN #30 tablet 12/27/20 Allergies Allergy/AdvReac Type Severity Reaction Status Date / Time aloe vera Allergy Rash/Hives Verified 01/02/21 20:25 gluten AdvReac Nausea & Verified 01/02/21 20:25 Vomiting & Diarrhea Review of Systems ROS Statement: Those systems with pertinent positive or pertinent negative responses have been documented in the HPI. ROS Other: All systems not noted in ROS Statement are negative. Past Medical History Past Medical History: Asthma, GERD/Reflux Additional Past Medical History / Comment(s): vertigo, History of Any Multi-Drug Resistant Organisms: None Reported Past Surgical History: No Surgical Hx Reported Additional Past Surgical History / Comment(s): EGD, wisdom teeth extractions. Past Anesthesia/Blood Transfusion Reactions: No Reported Reaction Past Psychological History: Anxiety, Bipolar, Depression, PTSD Smoking Status: Never smoker Past Alcohol Use History: Occasional Past Drug Use History: None Reported - Past Family History Father Additional Family Medical History / Comment(s): Anxiety, depression, bipolar, cholecystectomy Mother Family Medical History: Thyroid Disorder Additional Family Medical History / Comment(s): Anxiety, depression. General Exam - General Exam Comments Initial Comments: GENERAL: Patient is well-developed and well-nourished. Patient is nontoxic and in no acute distress. HEAD: Atraumatic, normocephalic. EYES: Pupils equal round and reactive to light, extraocular movements intact, sclera anicteric, conjunctiva are normal. Eyelids were unremarkable. ENT: Moist mucous membranes. NECK: Normal range of motion, supple without lymphadenopathy or JVD. LUNGS: Unlabored respirations. Breath sounds clear to auscultation bilaterally and equal. No wheezes rales or rhonchi. HEART: Regular rate and rhythm without murmurs, rubs or gallops. ABDOMEN: Soft, nontender, normoactive bowel sounds. No guarding, no rebound. No masses appreciated. : Deferred MUSCULOSKELETAL: Normal extremities with adequate strength and normal range of motion, no pitting or edema. No clubbing or cyanosis. SKIN: Warm, Dry, normal turgor, no rashes or lesions noted. Limitations: no limitations Course Vital Signs 01/02/21 01/02/21 01/02/21 20:23 20:58 21:09 Temperature 98.5 F Pulse Rate 76 62 64 Respiratory 20 Rate Blood Pressure 120/81 O2 Sat by Pulse 98 Oximetry Medical Decision Making - Medical Decision Making Patient is a 20-year-old female here for source of breath that started this morning. She does have history of asthma. She's been here multiple times for same complaint. She is getting a home nebulizer unit in 2 days. No fevers, vitals are stable. She did receive a breathing treatment, she reports improvement in her symptoms. Patient also requested a urinalysis as she was having some mild dysuria. Urine shows no evidence of infection. Patient is stable for discharge. Recommend following up with her doctor. She is agreeable to this. Case discussed with Dr. Way. - Lab Data Lab Results 01/02/21 Range/Units 21:26 Urine Color Yellow Urine Appearance Cloudy H (Clear) Urine pH 6.0 (5.0-8.0) Ur Specific [place] 1.027 (1.001-1.035) Urine Protein Trace H (Negative) Urine Glucose (UA) Negative (Negative) Urine Ketones Negative (Negative) Urine Blood Negative (Negative) Urine Nitrite Negative (Negative) Urine Bilirubin Negative (Negative) Urine Urobilinogen <2.0 (<2.0) mg/dL Ur Leukocyte Esterase Negative (Negative) Urine RBC 1 (0-5) /hpf Urine WBC 1 (0-5) /hpf Ur Squamous Epith Cells 6 H (0-4) /hpf Urine Bacteria Rare H (None) /hpf Urine Mucus Few H (None) /hpf Disposition Clinical Impression: Asthma exacerbation Disposition: HOME SELF-CARE Condition: Stable Instructions (If sedation given, give patient instructions): Asthma (ED) Additional Instructions: Please return to the Emergency Department if symptoms worsen or any other concerns. Follow-up with your regular doctor. Is patient prescribed a controlled substance at d/c from ED?: No Referrals: Michelle Shultz MD [Primary Care Provider] - 1-2 days Time of Disposition: 22:08
[2021-01-02 21:50] LABS: Appearance,Urine Cloudy (Clear); Bacteria,Urine Rare /hpf; Bilirubin,Urine Negative (Negative); Blood,Urine Negative (Negative); Color,Urine Yellow; Glucose,Urine (UA) Negative (Negative); Ketones,Urine Negative (Negative); Leukocyte Esterase,Urine Negative (Negative); Mucus,Urine Few /hpf; Nitrite,Urine Negative (Negative); Protein,Urine Trace (Negative); RBC,Urine 1 /hpf (0-5); Specific Gravity,Urine 1.027 (1.001-1.035); Squamous Epithelial Cell,Urine 6 /hpf (0-4); Urobilinogen,Urine <2.0 mg/dL (<2.0); WBC,Urine 1 /hpf (0-5)
== END 2021-01-02 22:10 | disposition home or self-care (01) ==
LOC: EC 20:22
DX: J45.901 Unspecified asthma with (acute) exacerbation (principal); R30.0 Dysuria; Z91.018 Allergy to other foods; Z91.09 Other allergy status, other than to drugs and biological substances
CPT/HCPCS: 81001; 94640; 99284

== ENCOUNTER 2021-01-03 23:27 | Emergency (ER) | payer OTHER ==
[2021-01-03 23:36] VITALS: BP 117/81; PULSE 74; RESP 20; TEMP 98.3
[2021-01-03] MEDS ORDERED: ONDANSETRON ODT 4 MG TAB PO STA (23:45)
[2021-01-04 00:03] LABS: Basophils # (A) 0.1 k/uL (0-0.2); Basophils % (A) 1 %; Eosinophils # (A) 0.1 k/uL (0-0.7); Eosinophils % (A) 1 %; Lymphocytes # (A) 2.4 k/uL (1.0-4.8); Lymphocytes % (A) 25 %; MCH 28.7 pg (25.0-35.0); MCHC 32.6 g/dL (31.0-37.0); MCV 88.2 fL (80.0-100.0); Mean Platelet Volume 7.2; Monocytes # (A) 0.5 k/uL (0-1.0); Monocytes % (A) 5 %; Neutrophils # (A) 6.1 k/uL (1.3-7.7); Neutrophils % (A) 65 %; Platelet Count 341 k/uL (150-450); RBC 4.54 m/uL (3.80-5.40); RDW 13.6 % (11.5-15.5); WBC 9.3 k/uL (3.8-10.6)
[2021-01-04 00:20] LABS: ALT 30 U/L (4-34); AST 37 U/L (14-36); African American GFR (CKD) >90 (>60 ml/min/1.73 sqM); Albumin 4.3 g/dL (3.5-5.0); Alkaline Phosphatase 76 U/L (38-126); Anion Gap 10 mmol/L; Blood Urea Nitrogen 9 mg/dL (7-17); Calcium 9.7 mg/dL (8.4-10.2); Carbon Dioxide 23 mmol/L (22-30); Chloride 105 mmol/L (98-107); Glucose 102 mg/dL (74-99); Non-African American GFR(CKD) >90 (>60 ml/min/1.73 sqM); Potassium 3.9 mmol/L (3.5-5.1); Sodium 138 mmol/L (137-145); Total Bilirubin 0.3 mg/dL (0.2-1.3); Total Protein 7.7 g/dL (6.3-8.2)
--- NOTE | 2021-01-04 00:36 | ED ---
General Adult HPI - General Chief complaint: Weakness Stated complaint: Weakness, nausea Time Seen by Provider: 01/03/21 23:37 Source: patient, family Mode of arrival: wheelchair Limitations: no limitations - History of Present Illness Initial comments: Patient is a 20-year-old female with history of anxiety, asthma, presenting to the emergency Department with complaints of feeling nauseous and "does not feel like herself." She states she started her Lexapro medication today, then she drank a Coca-Cola and felt like she had a metallic taste in her mouth. She states since then she's been feeling a little shaky and weak and a little nauseous. She does have Zofran at home however did not take any. She believes that something is going on, she's never felt this way in the past. She denies any chest pain or shortness of breath, no vomiting, no fevers or chills. She denies any diarrhea. She denies any falls or trauma. She states she's been eating and drinking as she normally does all day today. She has no further complaints. This is patient's third visit in 3 days for seperate complaints. Her vital signs are stable. - Related Data Home Medications Medication Instructions Recorded Confirmed Acetaminophen Tab [Tylenol Tab] 1,000 mg PO Q6HR PRN 12/02/20 12/17/20 Albuterol Sulfate [Proair Hfa] 2 puff INHALATION RT-Q6H PRN 12/02/20 12/17/20 Previous Rx's Medication Instructions Recorded Ibuprofen 800 mg PO TID #20 tablet 12/27/20 Methocarbamol [Robaxin-750] 750 mg PO TID PRN #30 tablet 12/27/20 Allergies Allergy/AdvReac Type Severity Reaction Status Date / Time aloe vera Allergy Rash/Hives Verified 01/03/21 23:36 gluten AdvReac Nausea & Verified 01/03/21 23:36 Vomiting & Diarrhea Review of Systems ROS Statement: Those systems with pertinent positive or pertinent negative responses have been documented in the HPI. ROS Other: All systems not noted in ROS Statement are negative. Past Medical History Past Medical History: Asthma, GERD/Reflux Additional Past Medical History / Comment(s): vertigo, History of Any Multi-Drug Resistant Organisms: None Reported Past Surgical History: No Surgical Hx Reported Additional Past Surgical History / Comment(s): EGD, wisdom teeth extractions. Past Anesthesia/Blood Transfusion Reactions: No Reported Reaction Past Psychological History: Anxiety, Bipolar, Depression, PTSD Smoking Status: Never smoker Past Alcohol Use History: Occasional Past Drug Use History: None Reported - Past Family History Father Additional Family Medical History / Comment(s): Anxiety, depression, bipolar, cholecystectomy Mother Family Medical History: Thyroid Disorder Additional Family Medical History / Comment(s): Anxiety, depression. General Exam - General Exam Comments Initial Comments: GENERAL: Patient is well-developed and well-nourished. Patient is nontoxic and in no acute distress. HEAD: Atraumatic, normocephalic. EYES: Pupils equal round and reactive to light, extraocular movements intact, sclera anicteric, conjunctiva are normal. Eyelids were unremarkable. ENT: Nares patent, oropharynx clear without exudates. Moist mucous membranes. NECK: Normal range of motion, supple without lymphadenopathy or JVD. LUNGS: Unlabored respirations. Breath sounds clear to auscultation bilaterally and equal. No wheezes rales or rhonchi. HEART: Regular rate and rhythm without murmurs, rubs or gallops. ABDOMEN: Soft, nontender, normoactive bowel sounds. No guarding, no rebound. No masses appreciated. : Deferred MUSCULOSKELETAL: Normal extremities with adequate strength and normal range of motion, no pitting or edema. No clubbing or cyanosis. NEUROLOGICAL: Patient is alert and oriented x 3. SKIN: Warm, Dry, normal turgor, no rashes or lesions noted. Limitations: no limitations Course Vital Signs 01/03/21 23:31 Temperature 98.3 F Pulse Rate 74 Respiratory 20 Rate Blood Pressure 117/81 O2 Sat by Pulse 98 Oximetry Medical Decision Making - Medical Decision Making patient is a 20-year-old female with history of anxiety, asthma, presenting with complaints of weakness, feeling shaky and some mild nausea. She started her Lexapro medication today. She also had a metallic taste in her mouth after drinking a Coca-Cola around noon today. She no longer has his taste. Her exam is unremarkable. Her vital signs are completely normal. This is patient's third visit in 3 days for separate complaints. She was worried that her sugar is low. I did run basic lab work, all of which is normal. I did offer something for his anxiety however she declined. I stated that she needs follow- up with her primary care doctor. There is no acute findings today. She is stable for discharge. She is agreeable to this plan of care. - Lab Data Result diagrams: 01/03/21 23:49 01/03/21 23:49 Lab Results 01/03/21 01/03/21 Range/Units 23:49 23:49 WBC 9.3 (3.8-10.6) k/uL RBC 4.54 (3.80-5.40) m/uL Hgb 13.0 (11.4-16.0) gm/dL Hct 40.0 (34.0-46.0) % MCV 88.2 (80.0-100.0) fL MCH 28.7 (25.0-35.0) pg MCHC 32.6 (31.0-37.0) g/dL RDW 13.6 (11.5-15.5) % Plt Count 341 (150-450) k/uL MPV 7.2 Neutrophils % 65 % Lymphocytes % 25 % Monocytes % 5 % Eosinophils % 1 % Basophils % 1 % Neutrophils # 6.1 (1.3-7.7) k/uL Lymphocytes # 2.4 (1.0-4.8) k/uL Monocytes # 0.5 (0-1.0) k/uL Eosinophils # 0.1 (0-0.7) k/uL Basophils # 0.1 (0-0.2) k/uL Sodium 138 (137-145) mmol/L Potassium 3.9 (3.5-5.1) mmol/L Chloride 105 (98-107) mmol/L Carbon Dioxide 23 (22-30) mmol/L Anion Gap 10 mmol/L BUN 9 (7-17) mg/dL Creatinine 0.62 (0.52-1.04) mg/dL Est GFR (CKD-EPI)AfAm >90 (>60 ml/min/1.73 sqM) Est GFR (CKD-EPI)NonAf >90 (>60 ml/min/1.73 sqM) Glucose 102 H (74-99) mg/dL Calcium 9.7 (8.4-10.2) mg/dL Total Bilirubin 0.3 (0.2-1.3) mg/dL AST 37 H (14-36) U/L ALT 30 (4-34) U/L Alkaline Phosphatase 76 (38-126) U/L Total Protein 7.7 (6.3-8.2) g/dL Albumin 4.3 (3.5-5.0) g/dL Disposition Clinical Impression: Nausea Disposition: HOME SELF-CARE Condition: Stable Instructions (If sedation given, give patient instructions): Normal Exam (ED) Additional Instructions: Please return to the Emergency Department if symptoms worsen or any other concerns. May take Zofran for any additional nausea. Please follow-up with your primary care physician. Is patient prescribed a controlled substance at d/c from ED?: No Referrals: Michelle Shultz MD [Primary Care Provider] - 1-2 days Time of Disposition: 00:36
== END 2021-01-04 00:39 | disposition home or self-care (01) ==
LOC: EC 23:27
DX: R11.0 Nausea (principal); R53.1 Weakness; J45.909 Unspecified asthma, uncomplicated; Z91.018 Allergy to other foods; Z91.09 Other allergy status, other than to drugs and biological substances
CPT/HCPCS: 36415; 80053; 85025; 99284

== ENCOUNTER 2021-01-16 19:38 | Emergency (ER) | payer OTHER ==
--- NOTE | 2021-01-16 20:02 | ED ---
General Adult HPI - General Chief complaint: ENT Stated complaint: ear pain Time Seen by Provider: 01/16/21 19:54 Source: patient Mode of arrival: ambulatory Limitations: no limitations - History of Present Illness Initial comments: 20 year-old female patient presents to the emergency department for evaluation of fluid on her bilateral ears. States she went swimming today and cannot get the water out. States there more in the left than the right. States she can here. There is some mild discomfort. States she can hear it bubbling around when she lays down. Denies any ear tenderness. Denies fever or chills. [place] the beach [place] day. - Related Data Home Medications Medication Instructions Recorded Confirmed Acetaminophen Tab [Tylenol Tab] 1,000 mg PO Q6HR PRN 12/02/20 12/17/20 Albuterol Sulfate [Proair Hfa] 2 puff INHALATION RT-Q6H PRN 12/02/20 12/17/20 Previous Rx's Medication Instructions Recorded Ibuprofen 800 mg PO TID #20 tablet 12/27/20 Methocarbamol [Robaxin-750] 750 mg PO TID PRN #30 tablet 12/27/20 Allergies Allergy/AdvReac Type Severity Reaction Status Date / Time aloe vera Allergy Rash/Hives Verified 01/16/21 19:50 gluten AdvReac Nausea & Verified 01/16/21 19:50 Vomiting & Diarrhea Review of Systems ROS Statement: Those systems with pertinent positive or pertinent negative responses have been documented in the HPI. ROS Other: All systems not noted in ROS Statement are negative. Past Medical History Past Medical History: Asthma, GERD/Reflux Additional Past Medical History / Comment(s): vertigo, History of Any Multi-Drug Resistant Organisms: None Reported Past Surgical History: No Surgical Hx Reported Additional Past Surgical History / Comment(s): EGD, wisdom teeth extractions. Past Anesthesia/Blood Transfusion Reactions: No Reported Reaction Past Psychological History: Anxiety, Bipolar, Depression, PTSD Smoking Status: Never smoker Past Alcohol Use History: Occasional Past Drug Use History: None Reported - Past Family History Father Additional Family Medical History / Comment(s): Anxiety, depression, bipolar, cholecystectomy Mother Family Medical History: Thyroid Disorder Additional Family Medical History / Comment(s): Anxiety, depression. General Exam Limitations: no limitations General appearance: alert, in no apparent distress, other (This is a well- developed, well-nourished adult female patient in no acute distress. Vital signs upon presentation are temperature 99.0F, pulse 98, respirations 18, blood pressure 121/75, pulse ox 99% on room air.) ENT exam: Present: normal exam, normal oropharynx, mucous membranes moist, other (Bilateral cerumen impaction). Absent: TM's normal bilaterally (Unable to visualize TMs) Respiratory exam: Present: normal lung sounds bilaterally. Absent: respiratory distress, wheezes, rales, rhonchi, stridor Cardiovascular Exam: Present: regular rate, normal rhythm, normal heart sounds. Absent: systolic murmur, diastolic murmur, rubs, gallop, clicks GI/Abdominal exam: Present: soft, normal bowel sounds. Absent: distended, tenderness, guarding, rebound, rigid Neurological exam: Present: alert, oriented X3, CN II-XII intact Psychiatric exam: Present: normal affect, normal mood Skin exam: Present: warm, dry, intact, normal color. Absent: rash Course Vital Signs 01/16/21 01/16/21 19:48 21:14 Temperature 99 F 98 F Pulse Rate 98 78 Respiratory 18 22 Rate Blood Pressure 121/75 138/78 O2 Sat by Pulse 99 98 Oximetry Medical Decision Making - Medical Decision Making 20-year-old female patient presented to the emergency department for evaluation of fluid in both of her ears. Physical examination did reveal bilateral cerumen impaction she been swimming throughout the day. Most likely this is due to trapped water. Nursing staff did irrigate the ears did get quite a bit of cerumen out of each. She does report improvement of symptoms and is able to hear better. She'll be discharged follow with her primary care physician for recheck in 1-2 days. Return parameters were discussed in detail. She verbalizes understanding and agrees with this plan. My attending is Dr. Demarco. Disposition Clinical Impression: Impacted cerumen, bilateral Disposition: HOME SELF-CARE Condition: Good Instructions (If sedation given, give patient instructions): Cerumen Impaction (ED) Additional Instructions: Positive primary care physician for recheck in 1-2 days. Return for any new, worsening, or concerning symptoms. Is patient prescribed a controlled substance at d/c from ED?: No Referrals: Michelle Shultz MD [Primary Care Provider] - 1-2 days Time of Disposition: 21:09
[2021-01-16 21:15] VITALS: BP 138/78; PULSE 78; RESP 22; TEMP 98
== END 2021-01-16 21:15 | disposition home or self-care (01) ==
LOC: EC 19:38
DX: H61.23 Impacted cerumen, bilateral (principal); J45.909 Unspecified asthma, uncomplicated; Z91.018 Allergy to other foods; Z91.09 Other allergy status, other than to drugs and biological substances
CPT/HCPCS: 99282

== ENCOUNTER 2021-01-20 02:13 | Emergency (ER) | payer OTHER ==
[2021-01-20 02:20] VITALS: BP 140/84; PULSE 104; RESP 20; TEMP 98.2
[2021-01-20] MEDS ORDERED: SUCRALFATE 1 GM TAB PO STA (02:31)
[2021-01-20] MEDS ORDERED: MAG HYDROX/AL HYDROX/SIMETH 30 ML, HYOSCYAMINE ELIXIR 10 ML, LIDOCAINE VISCOUS 2% 10 ML PO STA ×3 (02:31)
[2021-01-20] MEDS ORDERED: ONDANSETRON ODT 4 MG TAB PO STA (02:31)
--- NOTE | 2021-01-20 02:34 | ED ---
Abdominal Pain HPI - General Chief Complaint: Abdominal Pain Stated Complaint: Abdominal Pain Time Seen by Provider: 01/20/21 02:22 Source: patient Mode of arrival: ambulatory Limitations: no limitations - History of Present Illness Initial Comments: This is a 20-year-old female who presents with severe epigastric abdominal pain that began tonight while lying in bed. Patient states she has have a history of reflux and this has been persistent. Patient also does appear to suffer from some significant anxiety. Otherwise patient has no significant medical history and takes no medications MD Complaint: abdominal pain, other ([place], [place]) -: hour(s) Location: epigastric Radiation: epigastric Migration to: epigastric Severity: moderate Severity scale (1-10): 7 Quality: stabbing Consistency: constant Improves With: nothing Worsens With: nothing Associated Symptoms: nausea, vomiting Treatments Prior to Arrival: other (none) - Related Data Home Medications Medication Instructions Recorded Confirmed Acetaminophen Tab [Tylenol Tab] 1,000 mg PO Q6HR PRN 12/02/20 12/17/20 Albuterol Sulfate [Proair Hfa] 2 puff INHALATION RT-Q6H PRN 12/02/20 12/17/20 Previous Rx's Medication Instructions Recorded Ibuprofen 800 mg PO TID #20 tablet 12/27/20 Methocarbamol [Robaxin-750] 750 mg PO TID PRN #30 tablet 12/27/20 Allergies Allergy/AdvReac Type Severity Reaction Status Date / Time aloe vera Allergy Rash/Hives Verified 01/20/21 02:20 gluten AdvReac Nausea & Verified 01/20/21 02:20 Vomiting & Diarrhea Review of Systems ROS Statement: Those systems with pertinent positive or pertinent negative responses have been documented in the HPI. ROS Other: All systems not noted in ROS Statement are negative. Past Medical History Past Medical History: Asthma, GERD/Reflux Additional Past Medical History / Comment(s): vertigo, History of Any Multi-Drug Resistant Organisms: None Reported Past Surgical History: No Surgical Hx Reported Additional Past Surgical History / Comment(s): EGD, wisdom teeth extractions. Past Anesthesia/Blood Transfusion Reactions: No Reported Reaction Past Psychological History: Anxiety, Bipolar, Depression, PTSD Smoking Status: Never smoker Past Alcohol Use History: Occasional Past Drug Use History: None Reported - Past Family History Father Additional Family Medical History / Comment(s): Anxiety, depression, bipolar, cholecystectomy Mother Family Medical History: Thyroid Disorder Additional Family Medical History / Comment(s): Anxiety, depression. General Exam Limitations: no limitations General appearance: alert, in no apparent distress, anxious Head exam: Present: atraumatic, normocephalic, normal inspection Eye exam: Present: normal appearance, PERRL, EOMI. Absent: scleral icterus, conjunctival injection, periorbital swelling ENT exam: Present: normal exam, mucous membranes moist Neck exam: Present: normal inspection. Absent: tenderness, meningismus, lymphadenopathy Respiratory exam: Present: normal lung sounds bilaterally. Absent: respiratory distress, wheezes, rales, rhonchi, stridor Cardiovascular Exam: Present: normal rhythm, tachycardia, normal heart sounds. Absent: systolic murmur, diastolic murmur, rubs, gallop, clicks GI/Abdominal exam: Present: soft, tenderness, normal bowel sounds. Absent: distended, guarding, rebound, rigid Extremities exam: Present: normal inspection, full ROM, normal capillary refill. Absent: tenderness, pedal edema, joint swelling, calf tenderness Back exam: Present: normal inspection Neurological exam: Present: alert, oriented X3, CN II-XII intact Psychiatric exam: Present: normal affect, normal mood Skin exam: Present: warm, dry, intact, normal color. Absent: rash Course Vital Signs 01/20/21 02:18 Temperature 98.2 F Pulse Rate 104 H Respiratory 20 Rate Blood Pressure 140/84 O2 Sat by Pulse 99 Oximetry - Reevaluation(s) Reevaluation #1: 01/20/21 Medical record is reviewed Patient symptoms are improved here in the ER Patient informed of results and questions answered Patient is in no distress Patient is okay for discharge Medical Decision Making - Medical Decision Making 20 female today for evaluation patient Dese for evaluation of epigastric abdominal pain reflux. Irritable vomiting episode here in the ER symptoms resolved. X-ray are negative patient can be discharged home - Radiology Data Radiology results: report reviewed (Chest x-ray and x-ray KUB is negative for acute disease), image reviewed Disposition Clinical Impression: Nausea, Abdominal pain Disposition: HOME SELF-CARE Condition: Good Instructions (If sedation given, give patient instructions): Abdominal Pain (ED) Is patient prescribed a controlled substance at d/c from ED?: No Referrals: Michelle Shultz MD [Primary Care Provider] - 1-2 days
--- NOTE | 2021-01-20 03:44 | XR ---
EXAMINATION TYPE: XR chest 1V portable DATE OF EXAM: 01/20/2021 COMPARISON: 12/17/2020 HISTORY: Chest pain TECHNIQUE: Single view FINDINGS: There is a poor inspiration. There is minimal subsegmental atelectasis at the lung bases. H eart and mediastinum appear normal. There is no pleural effusion. Bony thorax appears intact. IMPRESSION: Inspiration decreased compared to last exam.
--- NOTE | 2021-01-20 03:46 | XR ---
EXAMINATION TYPE: XR KUB portable DATE OF EXAM: 01/20/2021 COMPARISON: NONE HISTORY: Abdominal pain TECHNIQUE: 2 views upright FINDINGS: Bowel gas pattern is normal. There is no sign of intestinal obstruction or pneumoperitoneum . Fecal pattern is normal. There is no evidence of a mass. There are no pathologic calcifications ove r the kidneys. IMPRESSION: Nonacute abdomen.
== END 2021-01-20 04:10 | disposition home or self-care (01) ==
LOC: EC 02:13
DX: R11.2 Nausea with vomiting, unspecified (principal); R10.13 Epigastric pain; J45.909 Unspecified asthma, uncomplicated; Z91.09 Other allergy status, other than to drugs and biological substances; Z91.018 Allergy to other foods
CPT/HCPCS: 71045; 74018; 99284

== ENCOUNTER 2021-01-24 19:32 | Emergency (ER) | payer OTHER ==
[2021-01-24 19:38] VITALS: BP 103/70; PULSE 87; RESP 20; TEMP 98.1
[2021-01-24 20:18] LABS: Appearance,Urine Clear (Clear); Bilirubin,Urine Negative (Negative); Blood,Urine Negative (Negative); Color,Urine Yellow; Glucose,Urine (UA) Negative (Negative); Ketones,Urine Negative (Negative); Leukocyte Esterase,Urine Negative (Negative); Nitrite,Urine Negative (Negative); Protein,Urine Negative (Negative); Specific Gravity,Urine 1.021 (1.001-1.035); Urobilinogen,Urine <2.0 mg/dL (<2.0)
--- NOTE | 2021-01-24 20:19 | ED ---
General Adult HPI - General Chief complaint: Nausea/Vomiting/Diarrhea Stated complaint: sore throat Time Seen by Provider: 01/24/21 19:39 Source: family Mode of arrival: ambulatory Limitations: no limitations - History of Present Illness Initial comments: 20 year-old female patient presents to the emergency department for evaluation of throat discomfort, shortness of breath, and diarrhea. States her asthma has been bothering her. Reports cough and some wheezing. States that she has been having nausea, vomiting, and diarrhea for the last few days. States that she has a lump in her throat that is making it difficult for her to breathe. States it started after she got a GI cocktail here in the emergency department. She denies any fever. States she has been feeling hot and sweaty. States that she had one episode of vomiting today early in the morning and has since been able to tolerate food and fluids. State she is able to swallow food without any difficulty. She denies any hematemesis, hematochezia, or melena. Denies chance of . Has not been vaccinated for COVID. State she did have a negative test about a week ago from [employer] [employer] [facility]. Patient denies any recent rash, chest pain, abdominal pain, constipation, back pain, numbness, tingling, dizziness, weakness, hematuria, dysuria, urinary urgency, urinary frequency, headache, visual changes, or any other complaints. - Related Data Home Medications Medication Instructions Recorded Confirmed Acetaminophen Tab [Tylenol Tab] 1,000 mg PO Q6HR PRN 12/02/20 12/17/20 Albuterol Sulfate [Proair Hfa] 2 puff INHALATION RT-Q6H PRN 12/02/20 12/17/20 Previous Rx's Medication Instructions Recorded Ibuprofen 800 mg PO TID #20 tablet 12/27/20 Methocarbamol [Robaxin-750] 750 mg PO TID PRN #30 tablet 12/27/20 methylPREDNISolone [Medrol Dose 4 mg PO DIRECTED #1 packet 01/24/21 Pack] Allergies Allergy/AdvReac Type Severity Reaction Status Date / Time aloe vera Allergy Rash/Hives Verified 01/24/21 19:36 gluten AdvReac Nausea & Verified 01/24/21 19:36 Vomiting & Diarrhea Review of Systems ROS Statement: Those systems with pertinent positive or pertinent negative responses have been documented in the HPI. ROS Other: All systems not noted in ROS Statement are negative. Past Medical History Past Medical History: Asthma, GERD/Reflux Additional Past Medical History / Comment(s): vertigo, History of Any Multi-Drug Resistant Organisms: None Reported Past Surgical History: No Surgical Hx Reported Additional Past Surgical History / Comment(s): EGD, wisdom teeth extractions. Past Anesthesia/Blood Transfusion Reactions: No Reported Reaction Past Psychological History: Anxiety, Bipolar, Depression, PTSD Smoking Status: Never smoker Past Alcohol Use History: Occasional Past Drug Use History: None Reported - Past Family History Father Additional Family Medical History / Comment(s): Anxiety, depression, bipolar, cholecystectomy Mother Family Medical History: Thyroid Disorder Additional Family Medical History / Comment(s): Anxiety, depression. General Exam Limitations: no limitations General appearance: alert, in no apparent distress, other (This is a well- developed, well-nourished adult female patient in no acute distress. Vital signs upon presentation are temperature 98.1F, pulse 87, respirations 20, blood pressure 103/70, pulse ox 98% on room air.) Eye exam: Present: normal appearance, PERRL, EOMI. Absent: scleral icterus, conjunctival injection, periorbital swelling ENT exam: Present: normal exam, normal oropharynx, mucous membranes moist Respiratory exam: Present: normal lung sounds bilaterally. Absent: respiratory distress, wheezes, rales, rhonchi, stridor Cardiovascular Exam: Present: regular rate, normal rhythm, normal heart sounds. Absent: systolic murmur, diastolic murmur, rubs, gallop, clicks GI/Abdominal exam: Present: soft, normal bowel sounds. Absent: distended, tenderness, guarding, rebound, rigid Neurological exam: Present: alert, oriented X3, CN II-XII intact Psychiatric exam: Present: normal affect, normal mood Skin exam: Present: warm, dry, intact, normal color. Absent: rash Course Vital Signs 01/24/21 19:36 Temperature 98.1 F Pulse Rate 87 Respiratory 20 Rate Blood Pressure 103/70 O2 Sat by Pulse 98 Oximetry Medical Decision Making - Medical Decision Making 20-year-old female patient presented to the emergency department today for evaluation of feeling like there is a lump in her throat as well as diarrhea. Physical examination is unremarkable. Oropharynx is normal. Abdomen soft and nontender. She is afebrile. Normal vital signs. Soft tissue neck x-ray was negative. She tested negative for COVID-19. I did discuss findings and results with her. She'll be discharged. Her primary care physician for recheck in 1-2 days. Return parameters were discussed in detail. She verbalizes understanding and agrees with this plan. My attending is Dr. Way. - Lab Data Lab Results 01/24/21 01/24/21 01/24/21 Range/Units 20:02 20:02 20:02 Urine Color Yellow Urine Appearance Clear (Clear) Urine pH 6.0 (5.0-8.0) Ur Specific [place] 1.021 (1.001-1.035) Urine Protein Negative (Negative) Urine Glucose (UA) Negative (Negative) Urine Ketones Negative (Negative) Urine Blood Negative (Negative) Urine Nitrite Negative (Negative) Urine Bilirubin Negative (Negative) Urine Urobilinogen <2.0 (<2.0) mg/dL Ur Leukocyte Esterase Negative (Negative) Urine HCG, Qual Not Detected (Not Detectd) Coronavirus (PCR) Not Detected (Not Detectd) Disposition Clinical Impression: Lump in throat, Shortness of breath, Vomiting Disposition: HOME SELF-CARE Condition: Good Instructions (If sedation given, give patient instructions): Acute Nausea and Vomiting (ED), Shortness of Breath (ED) Additional Instructions: Take medications as directed. Follow up with a primary care physician for recheck in 1-2 days. Return for any new, worsening, or concerning symptoms. Prescriptions: methylPREDNISolone [Medrol Dose Pack] 4 mg PO DIRECTED #1 packet Is patient prescribed a controlled substance at d/c from ED?: No Referrals: Michelle Shultz MD [Primary Care Provider] - 1-2 days Time of Disposition: 21:35
--- NOTE | 2021-01-24 20:23 | XR ---
EXAMINATION TYPE: XR soft tissue neck DATE OF EXAM: 01/24/2021 COMPARISON: NONE HISTORY: Lump in the throat TECHNIQUE: 2 views FINDINGS: Epiglottis appears normal. Prevertebral soft tissues are within normal limits. Tonsils and adenoids appear within normal limits. Subglottic trachea appears normal. IMPRESSION: Negative cervical soft tissue exam.
== END 2021-01-24 21:49 | disposition home or self-care (01) ==
LOC: EC 19:32
DX: R22.1 Localized swelling, mass and lump, neck (principal); R06.02 Shortness of breath; R11.2 Nausea with vomiting, unspecified; R06.2 Wheezing; R19.7 Diarrhea, unspecified; J45.909 Unspecified asthma, uncomplicated; Z20.822 Contact with and (suspected) exposure to COVID-19; Z91.018 Allergy to other foods; Z91.09 Other allergy status, other than to drugs and biological substances
CPT/HCPCS: 70360; 81003; 81025; 87635; 99285

== ENCOUNTER 2021-01-26 02:37 | Emergency (ER) | payer OTHER ==
[2021-01-26 02:46] VITALS: BP 119/67; PULSE 94; TEMP 98.3
[2021-01-26 03:10] VITALS: RESP 18
[2021-01-26] MEDS ORDERED: ONDANSETRON 4 MG ODT STARTER PACK 2 TAB BTL PO STA (03:32)
[2021-01-26] MEDS ORDERED: FAMOTIDINE 20 MG TAB PO STA (03:32)
[2021-01-26] MEDS ORDERED: predniSONE 20 MG TAB PO STA (03:32)
[2021-01-26] MEDS ORDERED: LORATADINE 10 MG TAB PO STA (03:32)
[2021-01-26] MEDS ORDERED: ONDANSETRON ODT 4 MG TAB PO STA (03:32)
[2021-01-26] MEDS ORDERED: diphenhydrAMINE 25 MG CAP PO STA (03:32)
--- NOTE | 2021-01-26 03:35 | ED ---
Allergic Reaction HPI - General Chief complaint: Shortness of Breath Stated complaint: Allergic Reaction Time Seen by Provider: 01/26/21 03:07 Source: patient, RN notes reviewed, old records reviewed Mode of arrival: wheelchair Limitations: no limitations - History of Present Illness Initial Comments: This is a 20-year-old female who is well-known to our emergency department. She presents today for evaluation of what she believes is ALLERGIC reaction with nausea, some tightening of her throat. Patient states on arrival to ER symptoms are improved will she presents DF for need to be checked out. Patient has no other symptoms no medical history and takes no current medications MD Complaint: allergic reaction, facial swelling -: hour(s) Exposure: unknown Symptoms: facial swelling, hoarseness, abdominal pain Severity: mild Treatment Prior to Arrival: none Previous Allergy History: prior ED visit(s) - Related Data Home Medications Medication Instructions Recorded Confirmed Acetaminophen Tab [Tylenol Tab] 1,000 mg PO Q6HR PRN 12/02/20 12/17/20 Albuterol Sulfate [Proair Hfa] 2 puff INHALATION RT-Q6H PRN 12/02/20 12/17/20 Previous Rx's Medication Instructions Recorded Ibuprofen 800 mg PO TID #20 tablet 12/27/20 Methocarbamol [Robaxin-750] 750 mg PO TID PRN #30 tablet 12/27/20 methylPREDNISolone [Medrol Dose 4 mg PO DIRECTED #1 packet 01/24/21 Pack] Famotidine [Pepcid] 20 mg PO DAILY #60 tablet 01/26/21 Famotidine [Pepcid] 40 mg PO DAILY #60 tab 01/26/21 Loratadine [Claritin] 5 mg PO DAILY #60 tab 01/26/21 Allergies Allergy/AdvReac Type Severity Reaction Status Date / Time aloe vera Allergy Rash/Hives Verified 01/31/21 19:33 gluten AdvReac Nausea & Verified 01/31/21 19:33 Vomiting & Diarrhea Review of Systems ROS Statement: Those systems with pertinent positive or pertinent negative responses have been documented in the HPI. ROS Other: All systems not noted in ROS Statement are negative. Past Medical History Past Medical History: Asthma, GERD/Reflux Additional Past Medical History / Comment(s): vertigo, History of Any Multi-Drug Resistant Organisms: None Reported Past Surgical History: No Surgical Hx Reported Additional Past Surgical History / Comment(s): EGD, wisdom teeth extractions. Past Anesthesia/Blood Transfusion Reactions: No Reported Reaction Past Psychological History: Anxiety, Bipolar, Depression, PTSD Smoking Status: Never smoker Past Alcohol Use History: Occasional Past Drug Use History: None Reported - Past Family History Father Additional Family Medical History / Comment(s): Anxiety, depression, bipolar, cholecystectomy Mother Family Medical History: Thyroid Disorder Additional Family Medical History / Comment(s): Anxiety, depression. General Exam Limitations: no limitations General appearance: alert, in no apparent distress Head exam: Present: atraumatic, normocephalic, normal inspection Eye exam: Present: normal appearance, PERRL, EOMI. Absent: scleral icterus, conjunctival injection, periorbital swelling ENT exam: Present: normal exam, mucous membranes moist Neck exam: Present: normal inspection. Absent: tenderness, meningismus, lymphadenopathy Respiratory exam: Present: normal lung sounds bilaterally. Absent: respiratory distress, wheezes, rales, rhonchi, stridor Cardiovascular Exam: Present: regular rate, normal rhythm, normal heart sounds. Absent: systolic murmur, diastolic murmur, rubs, gallop, clicks GI/Abdominal exam: Present: soft, normal bowel sounds. Absent: distended, tenderness, guarding, rebound, rigid Extremities exam: Present: normal inspection, full ROM, normal capillary refill. Absent: tenderness, pedal edema, joint swelling, calf tenderness Back exam: Present: normal inspection Neurological exam: Present: alert, oriented X3, CN II-XII intact Psychiatric exam: Present: normal affect, normal mood Skin exam: Present: warm, dry, intact, normal color. Absent: rash Course Vital Signs 01/26/21 01/26/21 02:43 03:05 Temperature 98.3 F Pulse Rate 94 Respiratory 20 18 Rate Blood Pressure 119/67 O2 Sat by Pulse 100 Oximetry - Reevaluation(s) Reevaluation #1: 01/26/21 Medical record is reviewed Patient symptoms are improved here in the emergency department Patient is informed results and questions answered Patient is in no acute distress Medical Decision Making - Medical Decision Making 20 female to the emergency department. Patient presents today for evaluation of ALLERGIC reaction will symptoms are resolved here in the ER nausea is resolved here in the ER and can be discharged home Disposition Clinical Impression: Lump in throat, Allergic reaction Disposition: HOME SELF-CARE Condition: Good Prescriptions: Loratadine [Claritin] 5 mg PO DAILY #60 tab Famotidine [Pepcid] 20 mg PO DAILY #60 tablet Famotidine [Pepcid] 40 mg PO DAILY #60 tab Is patient prescribed a controlled substance at d/c from ED?: No Referrals: Michelle Shultz MD [Primary Care Provider] - 1-2 days
== END 2021-01-26 04:00 | disposition home or self-care (01) ==
LOC: EC 02:37
DX: T78.40XA Allergy, unspecified, initial encounter (principal); R22.0 Localized swelling, mass and lump, head; R10.9 Unspecified abdominal pain; R49.0 Dysphonia; R11.0 Nausea; J45.909 Unspecified asthma, uncomplicated; Z91.018 Allergy to other foods; Z91.048 Other nonmedicinal substance allergy status
CPT/HCPCS: 99284; S0119; J7512

== ENCOUNTER 2021-01-31 19:17 | Emergency (ER) | payer OTHER ==
[2021-01-31 19:34] VITALS: BP 125/81; PULSE 89; RESP 20; TEMP 98.5
--- NOTE | 2021-01-31 20:39 | ED ---
Allergic Reaction HPI - General Chief complaint: Allergic Reaction Stated complaint: Possible Allergic Reaction Source: patient Mode of arrival: EMS Limitations: no limitations - History of Present Illness Initial Comments: 20-year-old female patient presenting to the emergency department today for evaluation of itching face and burning lips after eating a cinnamon popped are. Patient states symptoms started very shortly after eating the pop tart. Denies history of ALLERGY to this food. States she did take 50 mg of Benadryl. States symptoms did not improve so she called an ambulance they gave her an additional 50 mg of Benadryl. States all of her symptoms are not resolved. Denies any throat or tongue swelling. Denies abdominal pain. Denies rash to other parts of her body. - Related Data Home Medications Medication Instructions Recorded Confirmed Acetaminophen Tab [Tylenol Tab] 1,000 mg PO Q6HR PRN 12/02/20 12/17/20 Albuterol Sulfate [Proair Hfa] 2 puff INHALATION RT-Q6H PRN 12/02/20 12/17/20 Previous Rx's Medication Instructions Recorded Ibuprofen 800 mg PO TID #20 tablet 12/27/20 Methocarbamol [Robaxin-750] 750 mg PO TID PRN #30 tablet 12/27/20 methylPREDNISolone [Medrol Dose 4 mg PO DIRECTED #1 packet 01/24/21 Pack] Famotidine [Pepcid] 20 mg PO DAILY #60 tablet 01/26/21 Famotidine [Pepcid] 40 mg PO DAILY #60 tab 01/26/21 Loratadine [Claritin] 5 mg PO DAILY #60 tab 01/26/21 Allergies Allergy/AdvReac Type Severity Reaction Status Date / Time aloe vera Allergy Rash/Hives Verified 01/31/21 19:33 gluten AdvReac Nausea & Verified 01/31/21 19:33 Vomiting & Diarrhea Review of Systems ROS Statement: Those systems with pertinent positive or pertinent negative responses have been documented in the HPI. ROS Other: All systems not noted in ROS Statement are negative. Past Medical History Past Medical History: Asthma, GERD/Reflux Additional Past Medical History / Comment(s): vertigo, History of Any Multi-Drug Resistant Organisms: None Reported Past Surgical History: No Surgical Hx Reported Additional Past Surgical History / Comment(s): EGD, wisdom teeth extractions. Past Anesthesia/Blood Transfusion Reactions: No Reported Reaction Past Psychological History: Anxiety, Bipolar, Depression, PTSD Smoking Status: Never smoker Past Alcohol Use History: Occasional Past Drug Use History: None Reported - Past Family History Father Additional Family Medical History / Comment(s): Anxiety, depression, bipolar, cholecystectomy Mother Family Medical History: Thyroid Disorder Additional Family Medical History / Comment(s): Anxiety, depression. General Exam Limitations: no limitations General appearance: alert, in no apparent distress, other (This is a well- developed, well-nourished adult female patient in no acute distress. Vital signs upon presentation to 198.5F, pulse 89, respirations 20, blood pressure 125/81, pulse ox 97% on room air.) ENT exam: Present: normal exam, normal oropharynx, mucous membranes moist Respiratory exam: Present: normal lung sounds bilaterally. Absent: respiratory distress, wheezes, rales, rhonchi, stridor Cardiovascular Exam: Present: regular rate, normal rhythm, normal heart sounds. Absent: systolic murmur, diastolic murmur, rubs, gallop, clicks GI/Abdominal exam: Present: soft, normal bowel sounds. Absent: distended, tenderness, guarding, rebound, rigid Neurological exam: Present: alert, oriented X3, CN II-XII intact Psychiatric exam: Present: normal affect, normal mood Skin exam: Present: warm, dry, intact, normal color. Absent: rash Course Vital Signs 01/31/21 19:29 Temperature 98.5 F Pulse Rate 89 Respiratory 20 Rate Blood Pressure 125/81 O2 Sat by Pulse 97 Oximetry Medical Decision Making - Medical Decision Making 20-year-old female patient percents to the emergency department today via EMS for evaluation of itching to her face and tingling to her lips after eating cinnamon Pop Tart. Physical examination is unremarkable. She did have a total 100 mg of Benadryl prior to arrival. She is currently states that symptoms are completely resolved. I did offer IV steroids and Pepcid, states she has both of these medications at home and declines here. She is ready to be discharged. She is instructed to follow-up with her primary care physician for recheck in 1- 2 days. Return parameters were discussed in detail. She verbalizes understanding and agrees with this plan. My attending is . Disposition Clinical Impression: Allergic reaction Disposition: HOME SELF-CARE Condition: Good Instructions (If sedation given, give patient instructions): General Allergic Reaction (ED) Is patient prescribed a controlled substance at d/c from ED?: No Referrals: Michelle Shultz MD [Primary Care Provider] - 1-2 days Time of Disposition: 20:39
== END 2021-01-31 20:46 | disposition home or self-care (01) ==
LOC: EC 19:17
DX: T78.40XA Allergy, unspecified, initial encounter (principal); J45.909 Unspecified asthma, uncomplicated; Z91.09 Other allergy status, other than to drugs and biological substances; Z88.8 Allergy status to other drugs, medicaments and biological substances
CPT/HCPCS: 99283

== ENCOUNTER 2021-02-05 04:47 | Emergency (ER) | payer OTHER ==
[2021-02-05] MEDS ORDERED: PROCHLORPERAZINE 10 MG TAB PO STA (05:02)
[2021-02-05] MEDS ORDERED: IBUPROFEN 800 MG TAB PO STA (05:02)
[2021-02-05] MEDS ORDERED: diphenhydrAMINE 50 MG CAP PO STA (05:02)
[2021-02-05] MEDS ORDERED: ACETAMINOPHEN TAB 500 MG TAB PO STA (05:02)
[2021-02-05 05:04] VITALS: RESP 18
--- NOTE | 2021-02-05 05:04 | ED ---
Headache HPI - General Chief Complaint: Headache Stated Complaint: Headache Time Seen by Provider: 02/05/21 04:51 Mode of arrival: EMS Limitations: no limitations - Related Data Home Medications Medication Instructions Recorded Confirmed Acetaminophen Tab [Tylenol Tab] 1,000 mg PO Q6HR PRN 12/02/20 12/17/20 Albuterol Sulfate [Proair Hfa] 2 puff INHALATION RT-Q6H PRN 12/02/20 12/17/20 Previous Rx's Medication Instructions Recorded Ibuprofen 800 mg PO TID #20 tablet 12/27/20 Methocarbamol [Robaxin-750] 750 mg PO TID PRN #30 tablet 12/27/20 methylPREDNISolone [Medrol Dose 4 mg PO DIRECTED #1 packet 01/24/21 Pack] Famotidine [Pepcid] 20 mg PO DAILY #60 tablet 01/26/21 Famotidine [Pepcid] 40 mg PO DAILY #60 tab 01/26/21 Loratadine [Claritin] 5 mg PO DAILY #60 tab 01/26/21 Allergies Allergy/AdvReac Type Severity Reaction Status Date / Time aloe vera Allergy Rash/Hives Verified 02/05/21 05:04 gluten AdvReac Nausea & Verified 02/05/21 05:04 Vomiting & Diarrhea Review of Systems ROS Statement: Those systems with pertinent positive or pertinent negative responses have been documented in the HPI. ROS Other: All systems not noted in ROS Statement are negative. Past Medical History Past Medical History: Asthma, GERD/Reflux Additional Past Medical History / Comment(s): vertigo, History of Any Multi-Drug Resistant Organisms: None Reported Past Surgical History: No Surgical Hx Reported Additional Past Surgical History / Comment(s): EGD, wisdom teeth extractions. Past Anesthesia/Blood Transfusion Reactions: No Reported Reaction Past Psychological History: Anxiety, Bipolar, Depression, PTSD Smoking Status: Never smoker Past Alcohol Use History: Occasional Past Drug Use History: None Reported - Past Family History Father Additional Family Medical History / Comment(s): Anxiety, depression, bipolar, cholecystectomy Mother Family Medical History: Thyroid Disorder Additional Family Medical History / Comment(s): Anxiety, depression. General Exam Limitations: no limitations Course Vital Signs 02/05/21 05:00 Temperature 98 F Pulse Rate 78 Respiratory 18 Rate Blood Pressure 126/82 O2 Sat by Pulse 97 Oximetry Medical Decision Making - Lab Data Lab Results 02/05/21 02/05/21 Range/Units 05:11 05:11 Urine Color Yellow Urine Appearance Cloudy H (Clear) Urine pH 5.5 (5.0-8.0) Ur Specific Friedens 1.031 (1.001-1.035) Urine Protein Trace H (Negative) Urine Glucose (UA) Negative (Negative) Urine Ketones Negative (Negative) Urine Blood Negative (Negative) Urine Nitrite Negative (Negative) Urine Bilirubin Negative (Negative) Urine Urobilinogen <2.0 (<2.0) mg/dL Ur Leukocyte Esterase Moderate H (Negative) Urine RBC 2 (0-5) /hpf Urine WBC 13 H (0-5) /hpf Ur Squamous Epith Cells 16 H (0-4) /hpf Urine Bacteria Rare H (None) /hpf Urine Mucus Many H (None) /hpf Urine HCG, Qual Not Detected (Not Detectd) Disposition Clinical Impression: Headache, Sweating Disposition: HOME SELF-CARE Condition: Good Instructions (If sedation given, give patient instructions): Acute Headache (ED) Is patient prescribed a controlled substance at d/c from ED?: No Referrals: Michelle Shultz MD [Primary Care Provider] - 1-2 days
[2021-02-05 05:36] LABS: Appearance,Urine Cloudy (Clear); Bacteria,Urine Rare /hpf; Bilirubin,Urine Negative (Negative); Blood,Urine Negative (Negative); Color,Urine Yellow; Glucose,Urine (UA) Negative (Negative); Ketones,Urine Negative (Negative); Leukocyte Esterase,Urine Moderate (Negative); Mucus,Urine Many /hpf; Nitrite,Urine Negative (Negative); PH, Urine 5.5 (5.0-8.0); Protein,Urine Trace (Negative); RBC,Urine 2 /hpf (0-5); Specific Gravity,Urine 1.031 (1.001-1.035); Squamous Epithelial Cell,Urine 16 /hpf (0-4); Urobilinogen,Urine <2.0 mg/dL (<2.0); WBC,Urine 13 /hpf (0-5)
[2021-02-05] MEDS ORDERED: CEPHALEXIN 500 MG CAP PO STA (06:20)
[2021-02-05] MEDS ORDERED: CEPHALEXIN 500MG STARTER PACK 4 CAP BTL PO STA (06:21)
[2021-02-05 06:43] VITALS: BP 112/71; PULSE 72; TEMP 98.3
== END 2021-02-05 06:43 | disposition home or self-care (01) ==
LOC: EC 04:47
DX: R51.9 Headache, unspecified (principal); R61 Generalized hyperhidrosis; J45.909 Unspecified asthma, uncomplicated; Z91.018 Allergy to other foods; Z91.09 Other allergy status, other than to drugs and biological substances
CPT/HCPCS: 81001; 81025; 87086; 99284

== ENCOUNTER 2021-03-03 02:54 | Emergency (ER) | payer OTHER ==
[2021-03-03 03:02] VITALS: RESP 18; TEMP 98.2
[2021-03-03] MEDS ORDERED: FAMOTIDINE 20 MG TAB PO STA (03:24)
[2021-03-03] MEDS ORDERED: diphenhydrAMINE 50 MG CAP PO STA (03:24)
--- NOTE | 2021-03-03 03:26 | ED ---
Recheck HPI - General Chief Complaint: Recheck/Abnormal Lab/Rx Stated Complaint: poss allergic reaction Time Seen by Provider: 03/03/21 03:04 Source: patient Mode of arrival: ambulatory Limitations: no limitations - History of Present Illness Initial Comments: Patient is 20-year-old woman who states that tonight she started having a burning feeling to her cheeks and noticed that her face was red. She states she has had this multiple times in the past when she's had an ALLERGIC reaction. Patient is not sure what the exposure was that caused the reaction MD Complaint: other -: minutes(s) Initial Visit For: other Symptoms Since Prior Visit: no new symptoms Associated Symptoms: none - Related Data Home Medications Medication Instructions Recorded Confirmed Acetaminophen Tab [Tylenol Tab] 1,000 mg PO Q6HR PRN 12/02/20 12/17/20 Albuterol Sulfate [Proair Hfa] 2 puff INHALATION RT-Q6H PRN 12/02/20 12/17/20 Previous Rx's Medication Instructions Recorded Ibuprofen 800 mg PO TID #20 tablet 12/27/20 Methocarbamol [Robaxin-750] 750 mg PO TID PRN #30 tablet 12/27/20 methylPREDNISolone [Medrol Dose 4 mg PO DIRECTED #1 packet 01/24/21 Pack] Famotidine [Pepcid] 20 mg PO DAILY #60 tablet 01/26/21 Famotidine [Pepcid] 40 mg PO DAILY #60 tab 01/26/21 Loratadine [Claritin] 5 mg PO DAILY #60 tab 01/26/21 Cephalexin [Keflex] 500 mg PO Q6HR #20 cap 02/05/21 Allergies Allergy/AdvReac Type Severity Reaction Status Date / Time aloe vera Allergy Rash/Hives Verified 03/07/21 17:55 cinnamon AdvReac Unknown Verified 03/07/21 17:55 gluten AdvReac Nausea & Verified 03/07/21 17:55 Vomiting & Diarrhea Review of Systems ROS Statement: Those systems with pertinent positive or pertinent negative responses have been documented in the HPI. ROS Other: All systems not noted in ROS Statement are negative. Constitutional: Denies: fever, chills Eyes: Denies: vision change ENT: Denies: throat pain Respiratory: Denies: cough, dyspnea, wheezes Cardiovascular: Denies: chest pain, palpitations Gastrointestinal: Denies: vomiting, diarrhea Skin: Reports: as per HPI, change in color. Denies: rash Neurological: Denies: headache Past Medical History Past Medical History: Asthma, GERD/Reflux Additional Past Medical History / Comment(s): vertigo, History of Any Multi-Drug Resistant Organisms: None Reported Past Surgical History: No Surgical Hx Reported Additional Past Surgical History / Comment(s): EGD, wisdom teeth extractions. Past Anesthesia/Blood Transfusion Reactions: No Reported Reaction Past Psychological History: Anxiety, Bipolar, Depression, PTSD Smoking Status: Never smoker Past Alcohol Use History: Occasional Past Drug Use History: Marijuana - Past Family History Father Additional Family Medical History / Comment(s): Anxiety, depression, bipolar, cholecystectomy Mother Family Medical History: Thyroid Disorder Additional Family Medical History / Comment(s): Anxiety, depression. General Exam Limitations: no limitations General appearance: alert, in no apparent distress Head exam: Present: atraumatic, normocephalic Eye exam: Present: normal appearance. Absent: scleral icterus, conjunctival injection ENT exam: Present: normal oropharynx, mucous membranes moist Neck exam: Present: normal inspection Respiratory exam: Present: normal lung sounds bilaterally. Absent: respiratory distress, wheezes, rales, rhonchi, stridor Cardiovascular Exam: Present: regular rate, normal rhythm, normal heart sounds. Absent: systolic murmur, diastolic murmur, rubs, gallop GI/Abdominal exam: Present: soft. Absent: tenderness Extremities exam: Present: normal inspection Neurological exam: Present: alert Skin exam: Present: warm, dry, other (The patient does have some mild flushing of the face.) Course Vital Signs 03/03/21 03/03/21 03/03/21 03:00 04:56 04:58 Temperature 98.2 F 98.2 F Pulse Rate 90 92 Respiratory 18 18 18 Rate Blood Pressure 128/73 125/68 O2 Sat by Pulse 100 100 Oximetry Disposition Clinical Impression: Allergic Disposition: HOME SELF-CARE Condition: Good Instructions (If sedation given, give patient instructions): General Allergic Reaction (ED) Is patient prescribed a controlled substance at d/c from ED?: No Referrals: Michelle Shultz MD [Primary Care Provider] - 1-2 days
[2021-03-03 04:59] VITALS: BP 125/68; PULSE 92
== END 2021-03-03 04:59 | disposition home or self-care (01) ==
LOC: EC 02:54
DX: T78.40XA Allergy, unspecified, initial encounter (principal); J45.909 Unspecified asthma, uncomplicated; Z91.048 Other nonmedicinal substance allergy status; Z91.018 Allergy to other foods
CPT/HCPCS: 99283

== ENCOUNTER 2021-03-07 17:40 | Emergency (ER) | payer OTHER ==
[2021-03-07 17:58] VITALS: TEMP 98.1
[2021-03-07] MEDS ORDERED: HYDROmorphone 0.5 MG/0.5 ML SYRINGE IVP STA (18:57)
[2021-03-07] MEDS ORDERED: SODIUM CHLORIDE 0.9% 1,000 ML IV STA (18:57)
--- NOTE | 2021-03-07 19:02 | ED ---
General Adult HPI - General Chief complaint: Abdominal Pain Stated complaint: right side pain, nausea Time Seen by Provider: 03/07/21 18:44 Source: patient Mode of arrival: ambulatory Limitations: no limitations - History of Present Illness Initial comments: 20-year-old female presents to the emergency Department with complaints of right flank pain and nausea, onset at 1600 today. [place]. Denies any injury or exertional activity. Does state that pain is worsened activity and is able to achieve moderate amount of improvement in discomfort with repositioning. States her last menstrual period was normal; denies . Expresses concern about appendix and gallbladder. Patient denies fever, chills, chest pain, shortness of breath, vomiting, diarrhea, dysuria, hematuria, and hematochezia. - Related Data Home Medications Medication Instructions Recorded Confirmed Acetaminophen Tab [Tylenol Tab] 1,000 mg PO Q6HR PRN 12/02/20 12/17/20 Albuterol Sulfate [Proair Hfa] 2 puff INHALATION RT-Q6H PRN 12/02/20 12/17/20 Previous Rx's Medication Instructions Recorded Ibuprofen 800 mg PO TID #20 tablet 12/27/20 Methocarbamol [Robaxin-750] 750 mg PO TID PRN #30 tablet 12/27/20 methylPREDNISolone [Medrol Dose 4 mg PO DIRECTED #1 packet 01/24/21 Pack] Famotidine [Pepcid] 20 mg PO DAILY #60 tablet 01/26/21 Famotidine [Pepcid] 40 mg PO DAILY #60 tab 01/26/21 Loratadine [Claritin] 5 mg PO DAILY #60 tab 01/26/21 Cephalexin [Keflex] 500 mg PO Q6HR #20 cap 02/05/21 Allergies Allergy/AdvReac Type Severity Reaction Status Date / Time aloe vera Allergy Rash/Hives Verified 03/07/21 17:55 cinnamon AdvReac Unknown Verified 03/07/21 17:55 gluten AdvReac Nausea & Verified 03/07/21 17:55 Vomiting & Diarrhea Review of Systems ROS Statement: Those systems with pertinent positive or pertinent negative responses have been documented in the HPI. ROS Other: All systems not noted in ROS Statement are negative. Past Medical History Past Medical History: Asthma, GERD/Reflux Additional Past Medical History / Comment(s): vertigo, History of Any Multi-Drug Resistant Organisms: None Reported Past Surgical History: No Surgical Hx Reported Additional Past Surgical History / Comment(s): EGD, wisdom teeth extractions. Past Anesthesia/Blood Transfusion Reactions: No Reported Reaction Past Psychological History: Anxiety, Bipolar, Depression, PTSD Smoking Status: Never smoker Past Alcohol Use History: Occasional Past Drug Use History: Marijuana - Past Family History Father Additional Family Medical History / Comment(s): Anxiety, depression, bipolar, cholecystectomy Mother Family Medical History: Thyroid Disorder Additional Family Medical History / Comment(s): Anxiety, depression. General Exam Limitations: no limitations (Well-developed, well-nourished female in no acute distress. Initial temperature 98.1, pulse 90, respirations 18, blood pressure 126/66, pulse ox 99% on room air.) General appearance: alert, in no apparent distress Respiratory exam: Present: normal lung sounds bilaterally. Absent: respiratory distress, wheezes, rales, rhonchi, stridor Cardiovascular Exam: Present: regular rate, normal rhythm, normal heart sounds. Absent: systolic murmur, diastolic murmur, rubs, gallop, clicks GI/Abdominal exam: Present: soft, tenderness (Tenderness upon palpation of the right flank, right lower and right upper abdomen and periumbilical area.), normal bowel sounds. Absent: distended, rebound Back exam: Present: CVA tenderness (R) Neurological exam: Present: alert, oriented X3, CN II-XII intact Psychiatric exam: Present: normal affect, normal mood Skin exam: Present: warm, dry, intact, normal color. Absent: rash Course Vital Signs 03/07/21 03/07/21 03/07/21 17:55 19:28 21:56 Temperature 98.1 F Pulse Rate 98 82 74 Respiratory 18 24 20 Rate Blood Pressure 126/66 130/61 124/88 O2 Sat by Pulse 99 100 96 Oximetry - Reevaluation(s) Reevaluation #1: 03/07/21 19:43 Patient is tearful and attributes it to feeling very anxious. Reassured and updated on plan of care. Medical Decision Making - Medical Decision Making 20-year-old female with a history of anxiety is evaluated for complaints of right flank pain that radiates to the right mid and lower abdomen and is accompanied by nausea. Abdomen is soft and diffusely tender on the right side. Vital signs are stable; patient is afebrile. Patient was hydrated and offered IV pain and nausea medications which she declined; was agreeable to oral Zofran. Blood and urine were unremarkable. CT of the abdomen and pelvis was negative. Patient states nausea is improved with the Zofran , however pain does persist and is mild in nature. Patient is requesting to take Tylenol at home. Also states she has oral Zofran at home if needed. These findings were reviewed with patient. Discharge instructions and return parameters were discussed in detail. Patient verbalizes understanding and is agreeable with this. This patient's case was discussed with my attending Dr. Reinoso. - Lab Data Result diagrams: 03/07/21 19:09 03/07/21 19:09 Lab Results 03/07/21 03/07/21 03/07/21 Range/Units 19:09 19:09 19:09 WBC 9.7 (3.8-10.6) k/uL RBC 4.51 (3.80-5.40) m/uL Hgb 12.8 (11.4-16.0) gm/dL Hct 40.5 (34.0-46.0) % MCV 89.6 (80.0-100.0) fL MCH 28.4 (25.0-35.0) pg MCHC 31.6 (31.0-37.0) g/dL RDW 13.4 (11.5-15.5) % Plt Count 332 (150-450) k/uL MPV 7.2 Neutrophils % 71 % Lymphocytes % 21 % Monocytes % 5 % Eosinophils % 2 % Basophils % 0 % Neutrophils # 6.9 (1.3-7.7) k/uL Lymphocytes # 2.0 (1.0-4.8) k/uL Monocytes # 0.5 (0-1.0) k/uL Eosinophils # 0.2 (0-0.7) k/uL Basophils # 0.0 (0-0.2) k/uL Sodium 139 (137-145) mmol/L Potassium 3.9 (3.5-5.1) mmol/L Chloride 105 (98-107) mmol/L Carbon Dioxide 25 (22-30) mmol/L Anion Gap 9 mmol/L BUN 8 (7-17) mg/dL Creatinine 0.66 (0.52-1.04) mg/dL Est GFR (CKD-EPI)AfAm >90 (>60 ml/min/1.73 sqM) Est GFR (CKD-EPI)NonAf >90 (>60 ml/min/1.73 sqM) Glucose 93 (74-99) mg/dL Calcium 9.6 (8.4-10.2) mg/dL Total Bilirubin 0.4 (0.2-1.3) mg/dL AST 42 H (14-36) U/L ALT 39 H (4-34) U/L Alkaline Phosphatase 78 (38-126) U/L Total Protein 8.0 (6.3-8.2) g/dL Albumin 4.3 (3.5-5.0) g/dL Lipase 59 (23-300) U/L Urine Color Yellow Urine Appearance Cloudy H (Clear) Urine pH 5.5 (5.0-8.0) Ur Specific [place] 1.032 (1.001-1.035) Urine Protein Trace H (Negative) Urine Glucose (UA) Negative (Negative) Urine Ketones Negative (Negative) Urine Blood Negative (Negative) Urine Nitrite Negative (Negative) Urine Bilirubin Negative (Negative) Urine Urobilinogen <2.0 (<2.0) mg/dL Ur Leukocyte Esterase Negative (Negative) Urine RBC 1 (0-5) /hpf Urine WBC 3 (0-5) /hpf Ur Squamous Epith Cells 7 H (0-4) /hpf Hyaline Casts 2 (0-2) /lpf Urine Mucus Many H (None) /hpf Urine HCG, Qual (Not Detectd) 03/07/21 Range/Units 19:09 WBC (3.8-10.6) k/uL RBC (3.80-5.40) m/uL Hgb (11.4-16.0) gm/dL Hct (34.0-46.0) % MCV (80.0-100.0) fL MCH (25.0-35.0) pg MCHC (31.0-37.0) g/dL RDW (11.5-15.5) % Plt Count (150-450) k/uL MPV Neutrophils % % Lymphocytes % % Monocytes % % Eosinophils % % Basophils % % Neutrophils # (1.3-7.7) k/uL Lymphocytes # (1.0-4.8) k/uL Monocytes # (0-1.0) k/uL Eosinophils # (0-0.7) k/uL Basophils # (0-0.2) k/uL Sodium (137-145) mmol/L Potassium (3.5-5.1) mmol/L Chloride (98-107) mmol/L Carbon Dioxide (22-30) mmol/L Anion Gap mmol/L BUN (7-17) mg/dL Creatinine (0.52-1.04) mg/dL Est GFR (CKD-EPI)AfAm (>60 ml/min/1.73 sqM) Est GFR (CKD-EPI)NonAf (>60 ml/min/1.73 sqM) Glucose (74-99) mg/dL Calcium (8.4-10.2) mg/dL Total Bilirubin (0.2-1.3) mg/dL AST (14-36) U/L ALT (4-34) U/L Alkaline Phosphatase (38-126) U/L Total Protein (6.3-8.2) g/dL Albumin (3.5-5.0) g/dL Lipase (23-300) U/L Urine Color Urine Appearance (Clear) Urine pH (5.0-8.0) Ur Specific [place] (1.001-1.035) Urine Protein (Negative) Urine Glucose (UA) (Negative) Urine Ketones (Negative) Urine Blood (Negative) Urine Nitrite (Negative) Urine Bilirubin (Negative) Urine Urobilinogen (<2.0) mg/dL Ur Leukocyte Esterase (Negative) Urine RBC (0-5) /hpf Urine WBC (0-5) /hpf Ur Squamous Epith Cells (0-4) /hpf Hyaline Casts (0-2) /lpf Urine Mucus (None) /hpf Urine HCG, Qual Not Detected (Not Detectd) - Radiology Data Radiology results: report reviewed, image reviewed CT of the abdomen and pelvis with contrast was obtained. Report was reviewed in its entirety. Impression per Dr. Layton is negative CT scan of the abdomen and pelvis. Normal appendix. No renal stone or obstruction. Disposition Clinical Impression: Abdominal pain, Nausea Disposition: HOME SELF-CARE Condition: Stable Instructions (If sedation given, give patient instructions): Abdominal Pain (ED) Additional Instructions: Rest. Increase fluids. Track patterns associated with pain. Follow up with her primary care provider for recheck in the next 1-2 days. Return to the emergency department with any new, worsening, or concerning symptoms. Is patient prescribed a controlled substance at d/c from ED?: No Referrals: Michelle Shultz MD [Primary Care Provider] - 1-2 days Time of Disposition: 21:57
[2021-03-07] MEDS: ONDANSETRON 4 MG/2 ML VIAL IVP STA ×2 (19:17→19:22)
[2021-03-07 19:20] LABS: Basophils % (A) 0 %; Eosinophils # (A) 0.2 k/uL (0-0.7); Eosinophils % (A) 2 %; HCT 40.5 % (34.0-46.0); HGB 12.8 gm/dL (11.4-16.0); Lymphocytes % (A) 21 %; MCH 28.4 pg (25.0-35.0); MCHC 31.6 g/dL (31.0-37.0); MCV 89.6 fL (80.0-100.0); Mean Platelet Volume 7.2; Monocytes # (A) 0.5 k/uL (0-1.0); Monocytes % (A) 5 %; Neutrophils # (A) 6.9 k/uL (1.3-7.7); Neutrophils % (A) 71 %; Platelet Count 332 k/uL (150-450); RBC 4.51 m/uL (3.80-5.40); RDW 13.4 % (11.5-15.5); WBC 9.7 k/uL (3.8-10.6)
[2021-03-07 19:28] LABS: ALT 39 U/L (4-34); AST 42 U/L (14-36); African American GFR (CKD) >90 (>60 ml/min/1.73 sqM); Albumin 4.3 g/dL (3.5-5.0); Alkaline Phosphatase 78 U/L (38-126); Anion Gap 9 mmol/L; Blood Urea Nitrogen 8 mg/dL (7-17); Calcium 9.6 mg/dL (8.4-10.2); Carbon Dioxide 25 mmol/L (22-30); Chloride 105 mmol/L (98-107); Glucose 93 mg/dL (74-99); Lipase 59 U/L (23-300); Non-African American GFR(CKD) >90 (>60 ml/min/1.73 sqM); Potassium 3.9 mmol/L (3.5-5.1); Sodium 139 mmol/L (137-145); Total Bilirubin 0.4 mg/dL (0.2-1.3)
[2021-03-07 19:29] LABS: Appearance,Urine Cloudy (Clear); Bilirubin,Urine Negative (Negative); Blood,Urine Negative (Negative); Color,Urine Yellow; Glucose,Urine (UA) Negative (Negative); Hyaline Casts,Urine 2 /lpf (0-2); Ketones,Urine Negative (Negative); Leukocyte Esterase,Urine Negative (Negative); Mucus,Urine Many /hpf; Nitrite,Urine Negative (Negative); PH, Urine 5.5 (5.0-8.0); Protein,Urine Trace (Negative); RBC,Urine 1 /hpf (0-5); Specific Gravity,Urine 1.032 (1.001-1.035); Squamous Epithelial Cell,Urine 7 /hpf (0-4); Urobilinogen,Urine <2.0 mg/dL (<2.0); WBC,Urine 3 /hpf (0-5)
[2021-03-07] MEDS ORDERED: ONDANSETRON ODT 4 MG TAB PO STA (19:29)
--- NOTE | 2021-03-07 21:08 | CT ---
EXAMINATION TYPE: CT abdomen pelvis w con DATE OF EXAM: 03/07/2021 COMPARISON: None HISTORY: Abdominal pain, RLQ pain onset [address] DLP: 3427 mGycm Automated exposure control for dose reduction was used. CONTRAST: Performed with IV Contrast, patient injected with 100 mL of Isovue 300. Exam from the diaphragm to the floor the pelvis with IV contrast. Lung bases are clear. There is no pleural effusion. Heart size is normal. There is no pericardial eff usion. There is some mild fatty infiltration of the liver. Spleen stomach pancreas gallbladder appear intact. The bile ducts are not dilated. There is no adrenal mass. Kidneys show satisfactory contrast opacification. There is no hydronephrosi s. Ureters are not dilated. There is no retroperitoneal adenopathy. Appendix is posterior and inferio r and appears normal. Bladder distends smoothly. There is no inguinal hernia. Uterus is anteverted. T here is no free fluid in the pelvis. There is no pelvic mass. Delayed images show normal renal excret ion. There is no mesenteric edema. There is no ascites or free air. There is no bowel obstruction. There i s no evidence of pelvic mass. The lumbar vertebra have normal alignment. Posterior elements are intact. Disc spaces are normal. The bony pelvis is intact. The hip joints are intact. IMPRESSION: Negative CT scan of the abdomen pelvis. Normal appendix. No renal stone or obstruction.
[2021-03-07 21:58] VITALS: BP 124/88; PULSE 74; RESP 20
== END 2021-03-07 21:57 | disposition home or self-care (01) ==
LOC: EC 17:40
DX: R10.11 Right upper quadrant pain (principal); R10.31 Right lower quadrant pain; R10.33 Periumbilical pain; R11.0 Nausea; J45.909 Unspecified asthma, uncomplicated; Z91.09 Other allergy status, other than to drugs and biological substances; Z91.018 Allergy to other foods
CPT/HCPCS: 36415; 80053; 83690; 85025; 81001; 81025; 74177; 96360; 96361; 99284; Q9967

== ENCOUNTER 2021-03-28 06:27 | Emergency (ER) | payer OTHER ==
[2021-03-28 06:47] VITALS: BP 118/64; PULSE 94; RESP 18; TEMP 100.2
--- NOTE | 2021-03-28 07:38 | ED ---
General Adult HPI - General Chief complaint: Recheck/Abnormal Lab/Rx Stated complaint: Rapid Heartbeat, Nausea Time Seen by Provider: 03/28/21 06:56 Source: patient, RN notes reviewed Mode of arrival: ambulatory Limitations: no limitations - History of Present Illness Initial comments: This a 20-year-old female presents emergency Department chief complaint of palpitations. Patient does have history of palpitations. Patient states she's been up most of the night secondary to her significant other had recent surgery. Patient states that she feels improved at this time denies any chest pain, cough cold like symptoms no runny nose no vomiting or diarrhea. Patient states she had slight nausea patient just started her menstrual cycle. Denies any dysuria hematuria. - Related Data Home Medications Medication Instructions Recorded Confirmed Acetaminophen Tab [Tylenol Tab] 1,000 mg PO Q6HR PRN 12/02/20 12/17/20 Albuterol Sulfate [Proair Hfa] 2 puff INHALATION RT-Q6H PRN 12/02/20 12/17/20 Previous Rx's Medication Instructions Recorded Ibuprofen 800 mg PO TID #20 tablet 12/27/20 Methocarbamol [Robaxin-750] 750 mg PO TID PRN #30 tablet 12/27/20 methylPREDNISolone [Medrol Dose 4 mg PO DIRECTED #1 packet 01/24/21 Pack] Famotidine [Pepcid] 20 mg PO DAILY #60 tablet 01/26/21 Famotidine [Pepcid] 40 mg PO DAILY #60 tab 01/26/21 Loratadine [Claritin] 5 mg PO DAILY #60 tab 01/26/21 Cephalexin [Keflex] 500 mg PO Q6HR #20 cap 02/05/21 Allergies Allergy/AdvReac Type Severity Reaction Status Date / Time aloe vera Allergy Rash/Hives Verified 03/28/21 06:46 cinnamon AdvReac Unknown Verified 03/28/21 06:46 gluten AdvReac Nausea & Verified 03/28/21 06:46 Vomiting & Diarrhea Review of Systems ROS Statement: Those systems with pertinent positive or pertinent negative responses have been documented in the HPI. ROS Other: All systems not noted in ROS Statement are negative. Past Medical History Past Medical History: Asthma, GERD/Reflux Additional Past Medical History / Comment(s): vertigo, History of Any Multi-Drug Resistant Organisms: None Reported Past Surgical History: No Surgical Hx Reported Additional Past Surgical History / Comment(s): EGD, wisdom teeth extractions. Past Anesthesia/Blood Transfusion Reactions: No Reported Reaction Past Psychological History: Anxiety, Bipolar, Depression, PTSD Smoking Status: Never smoker Past Alcohol Use History: Occasional Past Drug Use History: Marijuana - Past Family History Father Additional Family Medical History / Comment(s): Anxiety, depression, bipolar, cholecystectomy Mother Family Medical History: Thyroid Disorder Additional Family Medical History / Comment(s): Anxiety, depression. General Exam Limitations: no limitations General appearance: alert, in no apparent distress Head exam: Present: atraumatic, normocephalic, normal inspection Eye exam: Present: normal appearance, PERRL, EOMI. Absent: scleral icterus, conjunctival injection, periorbital swelling ENT exam: Present: normal exam, normal oropharynx, mucous membranes moist Neck exam: Present: normal inspection, full ROM. Absent: tenderness, meningismus, lymphadenopathy Respiratory exam: Present: normal lung sounds bilaterally. Absent: respiratory distress, wheezes, rales, rhonchi, stridor Cardiovascular Exam: Present: regular rate, normal rhythm, normal heart sounds. Absent: systolic murmur, diastolic murmur, rubs, gallop, clicks GI/Abdominal exam: Present: soft, normal bowel sounds. Absent: distended, tenderness, guarding, rebound, rigid Neurological exam: Present: alert, oriented X3, CN II-XII intact Skin exam: Present: warm, dry, intact, normal color. Absent: rash Course Vital Signs 03/28/21 06:43 Temperature 100.2 F H Pulse Rate 94 Respiratory 18 Rate Blood Pressure 118/64 O2 Sat by Pulse 98 Oximetry EKG Findings - EKG Comments: EKG Findings:: EKG performed at 8:05 normal sinus rhythm rate of 87 MI 184 QRS 90 QT status QTC 370/445 Medical Decision Making - Medical Decision Making Patient's EKG, urinalysis unremarkable. Patient had he felt better prior evaluation. Patient discharged in stable condition return parameters discussed. - Lab Data Lab Results 03/28/21 03/28/21 Range/Units 07:30 07:30 Urine Color Yellow Urine Appearance Cloudy H (Clear) Urine pH 5.5 (5.0-8.0) Ur Specific [employer] 1.027 (1.001-1.035) Urine Protein Trace H (Negative) Urine Glucose (UA) Negative (Negative) Urine Ketones 1+ H (Negative) Urine Blood Large H (Negative) Urine Nitrite Negative (Negative) Urine Bilirubin Negative (Negative) Urine Urobilinogen <2.0 (<2.0) mg/dL Ur Leukocyte Esterase Negative (Negative) Urine RBC 3 (0-5) /hpf Urine WBC 4 (0-5) /hpf Ur Squamous Epith Cells 26 H (0-4) /hpf Amorphous Sediment Rare H (None) /hpf Urine Bacteria Rare H (None) /hpf Urine Mucus Many H (None) /hpf Urine HCG, Qual Not Detected (Not Detectd) Disposition Clinical Impression: Palpitations Disposition: HOME SELF-CARE Condition: Stable Instructions (If sedation given, give patient instructions): Heart Palpitations (ED) Additional Instructions: Please return to the Emergency Department if symptoms worsen or any other concerns. Is patient prescribed a controlled substance at d/c from ED?: No Referrals: Michelle Shultz MD [Primary Care Provider] - 1-2 days Time of Disposition: 08:13
[2021-03-28 08:05] LABS: Amorphous Sediment,Urine Rare /hpf; Appearance,Urine Cloudy (Clear); Bacteria,Urine Rare /hpf; Bilirubin,Urine Negative (Negative); Blood,Urine Large (Negative); Color,Urine Yellow; Glucose,Urine (UA) Negative (Negative); Ketones,Urine 1+ (Negative); Leukocyte Esterase,Urine Negative (Negative); Mucus,Urine Many /hpf; Nitrite,Urine Negative (Negative); PH, Urine 5.5 (5.0-8.0); Protein,Urine Trace (Negative); RBC,Urine 3 /hpf (0-5); Specific Gravity,Urine 1.027 (1.001-1.035); Squamous Epithelial Cell,Urine 26 /hpf (0-4); Urobilinogen,Urine <2.0 mg/dL (<2.0); WBC,Urine 4 /hpf (0-5)
== END 2021-03-28 08:32 | disposition home or self-care (01) ==
LOC: EC 06:27
DX: R00.2 Palpitations (principal); J45.909 Unspecified asthma, uncomplicated; Z91.018 Allergy to other foods; Z91.09 Other allergy status, other than to drugs and biological substances
CPT/HCPCS: 81001; 81025; 93005; 99285

== ENCOUNTER 2021-04-04 19:56 | Emergency (ER) | payer OTHER ==
[2021-04-04 20:02] VITALS: BP 101/64; PULSE 89; RESP 18; TEMP 99.2
[2021-04-04] MEDS ORDERED: DEXAMETHASONE SOD PHOSPHATE 10 MG/ML 1 ML VIAL IM STA (20:46)
--- NOTE | 2021-04-04 20:47 | ED ---
General Adult HPI - General Chief complaint: Skin/Abscess/Foreign Body Stated complaint: KERA,Facial swelling Time Seen by Provider: 04/04/21 20:40 Source: patient, RN notes reviewed, old records reviewed Mode of arrival: wheelchair Limitations: no limitations - History of Present Illness Initial comments: Well-appearing 20-year-old female presents to the emergency room with complaints of 2 days of right-sided facial swelling. She states that she has not had any new medications. She states that it is warm to the touch and spreading to her ear. She did try Benadryl at home with no relief. She has no ALLERGIES to medications. She does have a history of asthma and GERD. She denies any nausea vomiting diarrhea or shortness of breath or fevers. -: days(s) (2) Location: face Radiation: non-radiation Severity scale (1-10): 0 Quality: burning Improves with: none Worsens with: none Associated Symptoms: other (Blurred vision right eye) Treatments Prior to Arrival: other (Benadryl) - Related Data Home Medications Medication Instructions Recorded Confirmed Acetaminophen Tab [Tylenol Tab] 1,000 mg PO Q6HR PRN 12/02/20 12/17/20 Albuterol Sulfate [Proair Hfa] 2 puff INHALATION RT-Q6H PRN 12/02/20 12/17/20 Previous Rx's Medication Instructions Recorded Ibuprofen 800 mg PO TID #20 tablet 12/27/20 Methocarbamol [Robaxin-750] 750 mg PO TID PRN #30 tablet 12/27/20 methylPREDNISolone [Medrol Dose 4 mg PO DIRECTED #1 packet 01/24/21 Pack] Famotidine [Pepcid] 20 mg PO DAILY #60 tablet 01/26/21 Famotidine [Pepcid] 40 mg PO DAILY #60 tab 01/26/21 Loratadine [Claritin] 5 mg PO DAILY #60 tab 01/26/21 Cephalexin [Keflex] 500 mg PO Q6HR #20 cap 02/05/21 predniSONE 50 mg PO DAILY #5 tab 04/04/21 Allergies Allergy/AdvReac Type Severity Reaction Status Date / Time aloe vera Allergy Rash/Hives Verified 04/04/21 20:02 cinnamon AdvReac Unknown Verified 04/04/21 20:02 gluten AdvReac Nausea & Verified 04/04/21 20:02 Vomiting & Diarrhea Review of Systems ROS Statement: Those systems with pertinent positive or pertinent negative responses have been documented in the HPI. ROS Other: All systems not noted in ROS Statement are negative. Past Medical History Past Medical History: Asthma, GERD/Reflux Additional Past Medical History / Comment(s): vertigo, History of Any Multi-Drug Resistant Organisms: None Reported Past Surgical History: No Surgical Hx Reported Additional Past Surgical History / Comment(s): EGD, wisdom teeth extractions. Past Anesthesia/Blood Transfusion Reactions: No Reported Reaction Past Psychological History: Anxiety, Bipolar, Depression, PTSD Smoking Status: Never smoker Past Alcohol Use History: Occasional Past Drug Use History: Marijuana - Past Family History Father Additional Family Medical History / Comment(s): Anxiety, depression, bipolar, cholecystectomy Mother Family Medical History: Thyroid Disorder Additional Family Medical History / Comment(s): Anxiety, depression. General Exam Limitations: no limitations General appearance: alert, in no apparent distress Head exam: Present: atraumatic, normocephalic, normal inspection Eye exam: Present: normal appearance, EOMI. Absent: scleral icterus, conjunctival injection, nystagmus, periorbital swelling, periorbital tenderness ENT exam: Present: normal exam, normal oropharynx, mucous membranes moist Neck exam: Present: normal inspection. Absent: tenderness, meningismus, full ROM, lymphadenopathy Respiratory exam: Present: normal lung sounds bilaterally. Absent: respiratory distress, wheezes, rales, rhonchi, stridor Cardiovascular Exam: Present: regular rate, normal rhythm, normal heart sounds. Absent: systolic murmur, diastolic murmur, rubs, gallop, clicks GI/Abdominal exam: Present: soft, normal bowel sounds. Absent: distended, tenderness, guarding, rebound, rigid Extremities exam: Present: normal inspection, full ROM, normal capillary refill. Absent: tenderness, pedal edema, joint swelling, calf tenderness Neurological exam: Present: alert, oriented X3 Psychiatric exam: Present: normal affect, normal mood Skin exam: Present: warm, dry, intact, normal color. Absent: rash Course Vital Signs 04/04/21 19:59 Temperature 99.2 F Pulse Rate 89 Respiratory 18 Rate Blood Pressure 101/64 O2 Sat by Pulse 100 Oximetry Medical Decision Making - Medical Decision Making Patient presents with redness to the right side of face and right ear. She denies any fevers. This does not appear to be infectious. She took Benadryl prior to arrival in the emergency room and the redness has resolved. She has no visual complaints at this time. Her vital signs are stable. Lungs are clear to auscultation. She was offered Decadron and refused. I did prescribe her prednisone for 5 days to be taken as needed. She is agreeable to being discharged home. Discussed with Dr. Delarosa Disposition Clinical Impression: Dermatitis Disposition: HOME SELF-CARE Condition: Good Additional Instructions: Take 50 mg of Benadryl every 8 hours for redness and swelling. Follow-up with your primary care doctor or dermatology next week. Return to the emergency room with any new or concerning symptoms. Prescriptions: predniSONE 50 mg PO DAILY #5 tab Is patient prescribed a controlled substance at d/c from ED?: No Referrals: Michelle Shultz MD [Primary Care Provider] - 1-2 days Time of Disposition: 21:11
== END 2021-04-04 21:23 | disposition home or self-care (01) ==
LOC: EC 19:56
DX: L30.9 Dermatitis, unspecified (principal); J45.909 Unspecified asthma, uncomplicated; Z91.018 Allergy to other foods; Z91.048 Other nonmedicinal substance allergy status
CPT/HCPCS: 99283

== ENCOUNTER 2021-04-13 07:24 | Emergency (ER) | payer OTHER ==
--- NOTE | 2021-04-13 07:49 | ED ---
General Adult HPI - General Chief complaint: Shortness of Breath Stated complaint: KERA, asthma Time Seen by Provider: 04/13/21 07:34 Source: patient, RN notes reviewed, old records reviewed Mode of arrival: wheelchair Limitations: no limitations - History of Present Illness Initial comments: 20-year-old female who presented for evaluation of cough and dyspnea. History of asthma. She does have intact with her boyfriend who has had an upper respiratory infection or ALLERGIES. Patient has not been vaccinated against coronavirus. She does have history of asthma. She denies fever. Denies chest pain. 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 - Related Data Home Medications Medication Instructions Recorded Confirmed Acetaminophen Tab [Tylenol Tab] 1,000 mg PO Q6HR PRN 12/02/20 04/13/21 Albuterol Sulfate [Proair Hfa] 2 puff INHALATION RT-Q6H PRN 12/02/20 04/13/21 Previous Rx's Medication Instructions Recorded predniSONE 50 mg PO DAILY #5 tab 04/13/21 Allergies Allergy/AdvReac Type Severity Reaction Status Date / Time aloe vera Allergy Rash/Hives Verified 04/13/21 08:09 cinnamon Allergy Unknown Verified 04/13/21 08:09 gluten AdvReac Nausea & Verified 04/13/21 08:09 Vomiting & Diarrhea Review of Systems ROS Statement: Those systems with pertinent positive or pertinent negative responses have been documented in the HPI. ROS Other: All systems not noted in ROS Statement are negative. Past Medical History Past Medical History: Asthma, GERD/Reflux Additional Past Medical History / Comment(s): vertigo, History of Any Multi-Drug Resistant Organisms: None Reported Past Surgical History: No Surgical Hx Reported Additional Past Surgical History / Comment(s): EGD, wisdom teeth extractions. Past Anesthesia/Blood Transfusion Reactions: No Reported Reaction Past Psychological History: Anxiety, Bipolar, Depression, PTSD Smoking Status: Never smoker Past Alcohol Use History: Occasional Past Drug Use History: Marijuana - Past Family History Father Additional Family Medical History / Comment(s): Anxiety, depression, bipolar, cholecystectomy Mother Family Medical History: Thyroid Disorder Additional Family Medical History / Comment(s): Anxiety, depression. General Exam Limitations: no limitations General appearance: alert, in no apparent distress Head exam: Present: atraumatic, normocephalic Eye exam: Present: normal appearance, PERRL ENT exam: Present: normal exam Neck exam: Present: normal inspection. Absent: tenderness, meningismus Respiratory exam: Present: decreased breath sounds. Absent: respiratory distress, wheezes Cardiovascular Exam: Present: regular rate, normal rhythm GI/Abdominal exam: Present: soft. Absent: distended, tenderness, guarding Extremities exam: Present: normal inspection, normal capillary refill. Absent: pedal edema, calf tenderness Neurological exam: Present: alert, oriented X3, CN II-XII intact. Absent: motor sensory deficit Psychiatric exam: Present: normal affect, normal mood Skin exam: Present: warm, dry, intact. Absent: cyanosis, diaphoretic Course Vital Signs 04/13/21 04/13/21 07:29 08:10 Temperature 97.3 F L Pulse Rate 79 Respiratory 18 20 Rate Blood Pressure 87/64 O2 Sat by Pulse 100 Oximetry Medical Decision Making - Medical Decision Making 20-year-old female with dyspnea, history of asthma. Patient is well-appearing, no respiratory distress, speaking in full sentences. She's had dyspnea improved by albuterol over the past 24 hours. Chest x-ray is clear no pneumonia. She is negative for coronavirus. Will initiate short course of steroids and she should continue her albuterol at home. Return parameters were discussed. - Lab Data Lab Results 04/13/21 Range/Units 07:51 Coronavirus (PCR) Not Detected (Not Detectd) Disposition Clinical Impression: Asthma Disposition: HOME SELF-CARE Condition: Good Instructions (If sedation given, give patient instructions): Asthma (ED) Prescriptions: predniSONE 50 mg PO DAILY #5 tab Is patient prescribed a controlled substance at d/c from ED?: No Referrals: Michelle Shultz MD [Primary Care Provider] - 1-2 days Time of Disposition: 08:33
--- NOTE | 2021-04-13 08:30 | XR ---
EXAMINATION TYPE: XR chest 2V DATE OF EXAM: 04/13/2021 COMPARISON: Chest x-ray January 20, 2021 HISTORY: Difficulty in breathing. TECHNIQUE: Frontal and lateral views of the chest are obtained. FINDINGS: Low lung volumes redemonstrated. There is no suspicious new focal air space opacity, pleura l effusion, or pneumothorax seen. The cardiac silhouette size is stable and within normal limits. Un derlying scoliotic curvature or positioning noted. IMPRESSION: No new acute infiltrate.
[2021-04-13 08:40] VITALS: BP 131/84; PULSE 80; RESP 18; TEMP 98.4
== END 2021-04-13 08:42 | disposition home or self-care (01) ==
LOC: EC 07:24
DX: J45.909 Unspecified asthma, uncomplicated (principal); Z91.018 Allergy to other foods; Z91.048 Other nonmedicinal substance allergy status; Z20.822 Contact with and (suspected) exposure to COVID-19
CPT/HCPCS: 71046; 87635; 99285

== ENCOUNTER 2021-04-25 18:23 | Emergency (ER) | payer OTHER ==
[2021-04-25 18:38] VITALS: BP 136/58; PULSE 105; RESP 17; TEMP 97.8
--- NOTE | 2021-04-25 19:02 | ED ---
General Adult HPI - General Chief complaint: Anxiety Stated complaint: Anxiety Time Seen by Provider: 04/25/21 18:26 Source: patient, EMS, RN notes reviewed, old records reviewed Mode of arrival: EMS Limitations: no limitations - History of Present Illness Initial comments: 20-year-old female presents with panic attack. She states she had an argument w ith her boyfriend and that her food stamps had been discontinued. She states she is currently looking for work. She states she has a lot of her plate right now. She is not suicidal or homicidal. She feels much better after arrival to the emergency department. She states she is safe in her current living situation she does not feel threatened. She states she has family but they're about 2 hours away and she is deciding whether or not she will stay in this area and back with her family. She has no physical complaints the time my evaluation. - Related Data Home Medications Medication Instructions Recorded Confirmed Acetaminophen Tab [Tylenol Tab] 1,000 mg PO Q6HR PRN 12/02/20 04/13/21 Albuterol Sulfate [Proair Hfa] 2 puff INHALATION RT-Q6H PRN 12/02/20 04/13/21 Previous Rx's Medication Instructions Recorded predniSONE 50 mg PO DAILY #5 tab 04/13/21 Allergies Allergy/AdvReac Type Severity Reaction Status Date / Time aloe vera Allergy Rash/Hives Verified 04/25/21 18:38 cinnamon Allergy Unknown Verified 04/25/21 18:38 gluten AdvReac Nausea & Verified 04/25/21 18:38 Vomiting & Diarrhea Review of Systems ROS Statement: Those systems with pertinent positive or pertinent negative responses have been documented in the HPI. ROS Other: All systems not noted in ROS Statement are negative. Past Medical History Past Medical History: Asthma, GERD/Reflux Additional Past Medical History / Comment(s): vertigo, History of Any Multi-Drug Resistant Organisms: None Reported Past Surgical History: No Surgical Hx Reported Additional Past Surgical History / Comment(s): EGD, wisdom teeth extractions. Past Anesthesia/Blood Transfusion Reactions: No Reported Reaction Past Psychological History: Anxiety, Bipolar, Depression, PTSD Smoking Status: Never smoker Past Alcohol Use History: Occasional Past Drug Use History: Marijuana - Past Family History Father Additional Family Medical History / Comment(s): Anxiety, depression, bipolar, cholecystectomy Mother Family Medical History: Thyroid Disorder Additional Family Medical History / Comment(s): Anxiety, depression. General Exam Limitations: no limitations General appearance: alert, anxious Head exam: Present: atraumatic, normocephalic Eye exam: Present: normal appearance, PERRL ENT exam: Present: normal exam Neck exam: Present: normal inspection. Absent: tenderness, meningismus Respiratory exam: Present: normal lung sounds bilaterally. Absent: respiratory distress, wheezes Cardiovascular Exam: Present: regular rate, normal rhythm GI/Abdominal exam: Present: soft. Absent: distended, tenderness, guarding, rebound Extremities exam: Present: normal inspection, normal capillary refill. Absent: pedal edema Neurological exam: Present: alert, oriented X3, CN II-XII intact. Absent: motor sensory deficit Psychiatric exam: Present: anxious. Absent: homicidal ideation, suicidal ideation Skin exam: Present: warm, dry, intact. Absent: cyanosis, diaphoretic Course Vital Signs 04/25/21 18:27 Temperature 97.8 F Pulse Rate 105 H Respiratory 17 Rate Blood Pressure 136/58 O2 Sat by Pulse 97 Oximetry Medical Decision Making - Medical Decision Making 20-year-old female with anxiety. Patient is feeling better now treatment. She is reassured in the emergency department. She does have good outpatient follow- up. She feels safe in her current living situation. Disposition Clinical Impression: Panic attack Disposition: HOME SELF-CARE Condition: Fair Instructions (If sedation given, give patient instructions): Panic Attack (ED) Is patient prescribed a controlled substance at d/c from ED?: No Referrals: Michelle Shultz MD [Primary Care Provider] - 1-2 days Time of Disposition: 19:03
== END 2021-04-25 19:20 | disposition home or self-care (01) ==
LOC: EC 18:23
DX: F41.0 Panic disorder [episodic paroxysmal anxiety] (principal); J45.909 Unspecified asthma, uncomplicated; K21.9 Gastro-esophageal reflux disease without esophagitis; Z91.09 Other allergy status, other than to drugs and biological substances; Z91.018 Allergy to other foods

== ENCOUNTER 2021-04-29 08:33 | Emergency (ER) | payer OTHER ==
[2021-04-29 08:38] VITALS: BP 99/79; TEMP 98.2
[2021-04-29] MEDS ORDERED: ALBUTEROL NEBULIZED 2.5 MG/3 ML INHALATION STA (08:49)
--- NOTE | 2021-04-29 09:25 | ED ---
SOB HPI - General Chief Complaint: Shortness of Breath Stated Complaint: KERA Time Seen by Provider: 04/29/21 08:39 Source: patient, RN notes reviewed Mode of arrival: ambulatory Limitations: no limitations - History of Present Illness Initial Comments: 20-year-old female history of asthma who presents with complaints of shortness of breath that she woke up with this morning she can't get a good lung full of air she states slight cough no fevers chills nausea vomiting sweats or other symptoms at this time she is concerned that she may have been exposed to Covid 19 recently. Complaint: shortness of breath - Related Data Home Medications Medication Instructions Recorded Confirmed Acetaminophen Tab [Tylenol Tab] 1,000 mg PO Q6HR PRN 12/02/20 04/29/21 Albuterol Sulfate [Proair Hfa] 2 puff INHALATION RT-Q6H PRN 12/02/20 04/29/21 Previous Rx's Medication Instructions Recorded methylPREDNISolone Dose Pack 4 mg PO DIRECTED #21 tab 04/29/21 [Medrol Dose Pack] Allergies Allergy/AdvReac Type Severity Reaction Status Date / Time aloe vera Allergy Rash/Hives Verified 04/29/21 09:17 cinnamon Allergy Unknown Verified 04/29/21 09:17 strawberry Allergy Rash/Hives Verified 04/29/21 09:17 gluten AdvReac Nausea & Verified 04/29/21 09:17 Vomiting & Diarrhea Review of Systems ROS Statement: Those systems with pertinent positive or pertinent negative responses have been documented in the HPI. ROS Other: All systems not noted in ROS Statement are negative. Past Medical History Past Medical History: Asthma, GERD/Reflux Additional Past Medical History / Comment(s): vertigo, History of Any Multi-Drug Resistant Organisms: None Reported Past Surgical History: No Surgical Hx Reported Additional Past Surgical History / Comment(s): EGD, wisdom teeth extractions. Past Anesthesia/Blood Transfusion Reactions: No Reported Reaction Past Psychological History: Anxiety, Bipolar, Depression, PTSD Smoking Status: Never smoker Past Alcohol Use History: None Reported Past Drug Use History: Marijuana - Past Family History Father Additional Family Medical History / Comment(s): Anxiety, depression, bipolar, cholecystectomy Mother Family Medical History: Thyroid Disorder Additional Family Medical History / Comment(s): Anxiety, depression. General Exam - General Exam Comments Initial Comments: This is a well-developed well-nourished awake alert oriented 3 female Limitations: no limitations General appearance: alert, anxious Head exam: Present: atraumatic, normocephalic, normal inspection Eye exam: Present: normal appearance, PERRL, EOMI. Absent: scleral icterus, conjunctival injection, periorbital swelling ENT exam: Present: normal exam, mucous membranes moist Neck exam: Present: normal inspection. Absent: tenderness, meningismus, lymphadenopathy Respiratory exam: Present: decreased breath sounds. Absent: respiratory distress, wheezes, rales, rhonchi, stridor Cardiovascular Exam: Present: regular rate, normal rhythm, normal heart sounds. Absent: systolic murmur, diastolic murmur, rubs, gallop, clicks GI/Abdominal exam: Present: soft, normal bowel sounds. Absent: distended, tenderness, guarding, rebound, rigid Extremities exam: Present: normal inspection, full ROM, normal capillary refill. Absent: tenderness, pedal edema, joint swelling, calf tenderness Back exam: Present: normal inspection Neurological exam: Present: alert, oriented X3, CN II-XII intact Psychiatric exam: Present: normal affect, normal mood Skin exam: Present: warm, dry, intact, normal color. Absent: rash Course Vital Signs 04/29/21 04/29/21 04/29/21 08:34 09:58 10:04 Temperature 98.2 F Pulse Rate 66 77 78 Respiratory 18 16 16 Rate Blood Pressure 99/79 O2 Sat by Pulse 100 Oximetry Medical Decision Making - Medical Decision Making Reevaluation patient reveals improvement negative Covid 19. Patient will be discharged. She does not want to start steroids at this time but I will call in a prescription for her nebulizers and inhalers at home. - Lab Data Lab Results 04/29/21 Range/Units 08:46 Coronavirus (PCR) Not Detected (Not Detectd) Disposition Clinical Impression: Asthma with acute exacerbation Disposition: HOME SELF-CARE Condition: Good Instructions (If sedation given, give patient instructions): Asthma (ED) Prescriptions: methylPREDNISolone Dose Pack [Medrol Dose Pack] 4 mg PO DIRECTED #21 tab Is patient prescribed a controlled substance at d/c from ED?: No Referrals: Michelle Shultz MD [Primary Care Provider] - 1-2 days
[2021-04-29 09:59] VITALS: RESP 16
[2021-04-29 10:04] VITALS: PULSE 78
== END 2021-04-29 10:57 | disposition home or self-care (01) ==
LOC: EC 08:33
DX: J45.901 Unspecified asthma with (acute) exacerbation (principal); Z91.018 Allergy to other foods; Z91.09 Other allergy status, other than to drugs and biological substances; Z20.822 Contact with and (suspected) exposure to COVID-19
CPT/HCPCS: 87635; 94640; 99284

== ENCOUNTER 2021-05-11 01:35 | Emergency (ER) | payer OTHER ==
[2021-05-11 01:44] VITALS: BP 123/58; PULSE 111; RESP 20; TEMP 98.2
[2021-05-11 02:57] LABS: Appearance,Urine Cloudy (Clear); Bacteria,Urine Few /hpf; Bilirubin,Urine Negative (Negative); Blood,Urine Moderate (Negative); Calcium Oxalate Crystals,Urine Many /hpf; Color,Urine Yellow; Glucose,Urine (UA) Negative (Negative); Ketones,Urine Negative (Negative); Leukocyte Esterase,Urine Trace (Negative); Mucus,Urine Few /hpf; Nitrite,Urine Negative (Negative); PH, Urine 5.5 (5.0-8.0); Protein,Urine Trace (Negative); RBC,Urine 2 /hpf (0-5); Specific Gravity,Urine 1.029 (1.001-1.035); Squamous Epithelial Cell,Urine 10 /hpf (0-4); Urobilinogen,Urine <2.0 mg/dL (<2.0); WBC,Urine 8 /hpf (0-5)
--- NOTE | 2021-05-11 03:28 | XR ---
EXAMINATION TYPE: XR chest 2V DATE OF EXAM: 05/11/2021 COMPARISON: 04/13/2021 HISTORY: Short of breath TECHNIQUE: 2 views FINDINGS: Heart and mediastinum are normal. Lungs are clear. Diaphragm is normal. Bony thorax is inta ct. IMPRESSION: Normal chest. No change
--- NOTE | 2021-05-11 03:59 | ED ---
General Adult HPI - General Chief complaint: Shortness of Breath Stated complaint: SOB Time Seen by Provider: 05/11/21 02:04 Source: patient Mode of arrival: wheelchair Limitations: no limitations - History of Present Illness Initial comments: 21-year-old female patient presents to the emergency department today for evaluation of shortness of breath and nausea. States she feels very hot and sweaty. States this started about she was playing video games. States she has had similar episodes previous to this in the past. She is follow-up with her primary care physician. States she did try to use her inhaler which did not help. She denies any fever or chills. Denies any significant cough. States there is possibility of . States her periods are very irregular has been months since her last one. - Related Data Home Medications Medication Instructions Recorded Confirmed Acetaminophen Tab [Tylenol Tab] 1,000 mg PO Q6HR PRN 12/02/20 04/29/21 Albuterol Sulfate [Proair Hfa] 2 puff INHALATION RT-Q6H PRN 12/02/20 04/29/21 Previous Rx's Medication Instructions Recorded methylPREDNISolone Dose Pack 4 mg PO DIRECTED #21 tab 04/29/21 [Medrol Dose Pack] Allergies Allergy/AdvReac Type Severity Reaction Status Date / Time aloe vera Allergy Rash/Hives Verified 05/11/21 01:42 cinnamon Allergy Unknown Verified 05/11/21 01:42 strawberry Allergy Rash/Hives Verified 05/11/21 01:42 gluten AdvReac Nausea & Verified 05/11/21 01:42 Vomiting & Diarrhea Review of Systems ROS Statement: Those systems with pertinent positive or pertinent negative responses have been documented in the HPI. ROS Other: All systems not noted in ROS Statement are negative. Past Medical History Past Medical History: Asthma, GERD/Reflux Additional Past Medical History / Comment(s): vertigo, History of Any Multi-Drug Resistant Organisms: None Reported Past Surgical History: No Surgical Hx Reported Additional Past Surgical History / Comment(s): EGD, wisdom teeth extractions. Past Anesthesia/Blood Transfusion Reactions: No Reported Reaction Past Psychological History: Anxiety, Bipolar, Depression, PTSD Smoking Status: Never smoker Past Alcohol Use History: None Reported Past Drug Use History: Marijuana - Past Family History Father Additional Family Medical History / Comment(s): Anxiety, depression, bipolar, cholecystectomy Mother Family Medical History: Thyroid Disorder Additional Family Medical History / Comment(s): Anxiety, depression. General Exam Limitations: no limitations General appearance: alert, in no apparent distress, other (This is a well- developed, well-nourished adult female in no acute distress.) Respiratory exam: Present: normal lung sounds bilaterally. Absent: respiratory distress, wheezes, rales, rhonchi, stridor Cardiovascular Exam: Present: regular rate, normal rhythm, normal heart sounds. Absent: systolic murmur, diastolic murmur, rubs, gallop, clicks GI/Abdominal exam: Present: soft, normal bowel sounds. Absent: distended, tenderness, guarding, rebound, rigid Neurological exam: Present: alert, oriented X3, CN II-XII intact Psychiatric exam: Present: normal affect, normal mood Skin exam: Present: warm, dry, intact, normal color. Absent: rash Course Vital Signs 05/11/21 01:42 Temperature 98.2 F Pulse Rate 111 H Respiratory 20 Rate Blood Pressure 123/58 O2 Sat by Pulse 99 Oximetry Medical Decision Making - Medical Decision Making 21-year-old female patient presented for evaluation of shortness of breath and feeling hot. She also reporting nausea. No vomiting. Physical examination is unremarkable. Lungs are clear to auscultation with good air movement. Chest x- ray negative. She tested negative for COVID-19. Negative for . She'll be discharged pop the primary care physician for recheck in 1-2 days. Return parameters were discussed in detail. She verbalizes understanding and agrees with this plan. My attending is Dr. Reinoso. - Lab Data Lab Results 05/11/21 05/11/21 05/11/21 Range/Units 02:34 02:34 02:34 Urine Color Yellow Urine Appearance Cloudy H (Clear) Urine pH 5.5 (5.0-8.0) Ur Specific [place] 1.029 (1.001-1.035) Urine Protein Trace H (Negative) Urine Glucose (UA) Negative (Negative) Urine Ketones Negative (Negative) Urine Blood Moderate H (Negative) Urine Nitrite Negative (Negative) Urine Bilirubin Negative (Negative) Urine Urobilinogen <2.0 (<2.0) mg/dL Ur Leukocyte Esterase Trace H (Negative) Urine RBC 2 (0-5) /hpf Urine WBC 8 H (0-5) /hpf Ur Squamous Epith Cells 10 H (0-4) /hpf Calcium Oxalate Crystal Many H (None) /hpf Urine Bacteria Few H (None) /hpf Urine Mucus Few H (None) /hpf Urine HCG, Qual Not Detected (Not Detectd) Coronavirus (PCR) Not Detected (Not Detectd) - Radiology Data Radiology results: report reviewed, image reviewed Two-view x-ray of the chest is obtained. Report reviewed in its entirety. Impression by Dr. Layton shows normal chest. No change. Disposition Clinical Impression: Shortness of breath, Palpitations Disposition: HOME SELF-CARE Condition: Good Instructions (If sedation given, give patient instructions): Shortness of Breath (ED) Additional Instructions: Follow-up with your primary care physician for recheck in 1-2 days. Discussed possibly wearing a heart monitor. Return for any new, worsening, or concerning symptoms. Is patient prescribed a controlled substance at d/c from ED?: No Referrals: Michelle Shultz MD [Primary Care Provider] - 1-2 days Time of Disposition: 03:59
== END 2021-05-11 04:21 | disposition home or self-care (01) ==
LOC: EC 01:35
DX: R06.02 Shortness of breath (principal); R00.2 Palpitations; R11.0 Nausea; J45.909 Unspecified asthma, uncomplicated; Z91.018 Allergy to other foods; Z91.09 Other allergy status, other than to drugs and biological substances; Z20.822 Contact with and (suspected) exposure to COVID-19
CPT/HCPCS: 71046; 81001; 81025; 87635; 93005; 99285

== ENCOUNTER 2021-05-22 18:27 | Emergency (ER) | payer OTHER ==
[2021-05-22 18:47] VITALS: BP 106/67; PULSE 80; RESP 18; TEMP 97.7
--- NOTE | 2021-05-22 19:17 | ED ---
ENT HPI - General Chief complaint: ENT Stated complaint: Chest Congestion Time Seen by Provider: 05/22/21 18:49 Source: patient, RN notes reviewed Mode of arrival: ambulatory Limitations: no limitations - History of Present Illness Initial comments: 21-year-old female presents emergency Department with chief complaint of cough congestion wheezing shortness of breath sore throat. Patient states symptoms have been present for 1 week. Patient reports possible fever, chills body aches. Patient states she was seen we feel and symptoms started with negative tests. Patient offers no associated GI symptoms no other complaints. - Related Data Home Medications Medication Instructions Recorded Confirmed Acetaminophen Tab [Tylenol Tab] 1,000 mg PO Q6HR PRN 12/02/20 04/29/21 Albuterol Sulfate [Proair Hfa] 2 puff INHALATION RT-Q6H PRN 12/02/20 04/29/21 Previous Rx's Medication Instructions Recorded methylPREDNISolone Dose Pack 4 mg PO DIRECTED #21 tab 04/29/21 [Medrol Dose Pack] Allergies Allergy/AdvReac Type Severity Reaction Status Date / Time aloe vera Allergy Rash/Hives Verified 05/22/21 18:47 cinnamon Allergy Unknown Verified 05/22/21 18:47 strawberry Allergy Rash/Hives Verified 05/22/21 18:47 gluten AdvReac Nausea & Verified 05/22/21 18:47 Vomiting & Diarrhea Review of Systems ROS Statement: Those systems with pertinent positive or pertinent negative responses have been documented in the HPI. ROS Other: All systems not noted in ROS Statement are negative. Past Medical History Past Medical History: Asthma, GERD/Reflux Additional Past Medical History / Comment(s): vertigo, History of Any Multi-Drug Resistant Organisms: None Reported Past Surgical History: No Surgical Hx Reported Additional Past Surgical History / Comment(s): EGD, wisdom teeth extractions. Past Anesthesia/Blood Transfusion Reactions: No Reported Reaction Past Psychological History: Anxiety, Bipolar, Depression, PTSD Smoking Status: Never smoker Past Alcohol Use History: None Reported Past Drug Use History: None Reported - Past Family History Father Additional Family Medical History / Comment(s): Anxiety, depression, bipolar, cholecystectomy Mother Family Medical History: Thyroid Disorder Additional Family Medical History / Comment(s): Anxiety, depression. General Exam General appearance: alert, in no apparent distress Head exam: Present: atraumatic, normocephalic, normal inspection Eye exam: Present: normal appearance, PERRL, EOMI. Absent: scleral icterus, conjunctival injection, periorbital swelling ENT exam: Present: normal exam, normal oropharynx, mucous membranes moist Neck exam: Present: normal inspection, full ROM. Absent: tenderness, meningismus, lymphadenopathy Respiratory exam: Present: normal lung sounds bilaterally. Absent: respiratory distress, wheezes, rales, rhonchi, stridor Cardiovascular Exam: Present: regular rate, normal rhythm, normal heart sounds. Absent: systolic murmur, diastolic murmur, rubs, gallop, clicks GI/Abdominal exam: Present: soft, normal bowel sounds. Absent: distended, tenderness, guarding, rebound, rigid Back exam: Absent: CVA tenderness (R), CVA tenderness (L) Neurological exam: Present: alert Skin exam: Present: warm, dry, intact, normal color. Absent: rash Course Vital Signs 05/22/21 18:45 Temperature 97.7 F Pulse Rate 80 Respiratory 18 Rate Blood Pressure 106/67 O2 Sat by Pulse 98 Oximetry Medical Decision Making - Medical Decision Making Chest x-rays unremarkable, negative influenza and covid19. Patient discharged stable condition return parameters were discussed. - Lab Data Lab Results 05/22/21 05/22/21 Range/Units 19:39 19:39 Coronavirus (PCR) Not Detected (Not Detectd) Influenza Type A RNA Not Detected (Not Detectd) Influenza Type B (PCR) Not Detected (Not Detectd) Disposition Clinical Impression: URI (upper respiratory infection) Disposition: HOME SELF-CARE Condition: Stable Instructions (If sedation given, give patient instructions): Upper Respiratory Infection (ED) Additional Instructions: Please return to the Emergency Department if symptoms worsen or any other concerns. Is patient prescribed a controlled substance at d/c from ED?: No Referrals: Michelle Shultz MD [Primary Care Provider] - 1-2 days Time of Disposition: 20:27
--- NOTE | 2021-05-22 20:07 | XR ---
EXAMINATION TYPE: XR chest 2V DATE OF EXAM: 05/22/2021 COMPARISON: 05/11/2021 HISTORY: Short of breath TECHNIQUE: 2 views FINDINGS: Heart and mediastinum are normal. Lungs are clear. Diaphragm is normal. Bony thorax appears normal. IMPRESSION: Normal chest. No change.
== END 2021-05-22 20:41 | disposition home or self-care (01) ==
LOC: EC 18:27
DX: J06.9 Acute upper respiratory infection, unspecified (principal); J45.909 Unspecified asthma, uncomplicated; Z91.09 Other allergy status, other than to drugs and biological substances; Z91.018 Allergy to other foods; Z20.822 Contact with and (suspected) exposure to COVID-19
CPT/HCPCS: 71046; 87502; 87635; 99285

== ENCOUNTER 2021-06-13 16:09 | Emergency (ER) | payer OTHER ==
[2021-06-13 16:19] VITALS: BP 126/89; PULSE 71; RESP 16; TEMP 97.9
[2021-06-13] MEDS ORDERED: KETOROLAC 15 MG/ML 1 ML VIAL IM STA (16:27)
--- NOTE | 2021-06-13 16:33 | ED ---
General Adult HPI - General Chief complaint: Vaginal Bleeding Stated complaint: Vaginal Bleeding Time Seen by Provider: 06/13/21 16:20 Source: patient Mode of arrival: EMS Limitations: no limitations - History of Present Illness Initial comments: 21 year-old female patient presents to the emergency department for evaluation of heavy vaginal bleeding. She states bleeding started yesterday. States it is somewhat heavier than usual. States she passed a large blood clot. She reports suprapubic cramping. Last menstrual period was exactly one month ago. She denies taking any test. She states she does have unprotected sex. She reports nausea, dizziness, and fatigue. States she has had those symptoms for the last week. She denies any fever or chills. She has lack of appetite. Not concerned for COVID. She denies any dysuria, urinary urgency, or frequency. - Related Data Home Medications Medication Instructions Recorded Confirmed Acetaminophen Tab [Tylenol Tab] 1,000 mg PO Q6HR PRN 12/02/20 04/29/21 Albuterol Sulfate [Proair Hfa] 2 puff INHALATION RT-Q6H PRN 12/02/20 04/29/21 Previous Rx's Medication Instructions Recorded methylPREDNISolone Dose Pack 4 mg PO DIRECTED #21 tab 04/29/21 [Medrol Dose Pack] Ibuprofen [Motrin] 600 mg PO Q8HR PRN #30 tab 06/13/21 Ondansetron [Zofran ODT] 4 mg PO Q8HR PRN #10 tab 06/13/21 Allergies Allergy/AdvReac Type Severity Reaction Status Date / Time aloe vera Allergy Rash/Hives Verified 05/22/21 18:47 cinnamon Allergy Unknown Verified 05/22/21 18:47 strawberry Allergy Rash/Hives Verified 05/22/21 18:47 gluten AdvReac Nausea & Verified 05/22/21 18:47 Vomiting & Diarrhea Review of Systems ROS Statement: Those systems with pertinent positive or pertinent negative responses have been documented in the HPI. ROS Other: All systems not noted in ROS Statement are negative. Past Medical History Past Medical History: Asthma, GERD/Reflux Additional Past Medical History / Comment(s): vertigo, History of Any Multi-Drug Resistant Organisms: None Reported Past Surgical History: No Surgical Hx Reported Additional Past Surgical History / Comment(s): EGD, wisdom teeth extractions. Past Anesthesia/Blood Transfusion Reactions: No Reported Reaction Past Psychological History: Anxiety, Bipolar, Depression, PTSD Smoking Status: Never smoker Past Alcohol Use History: None Reported Past Drug Use History: None Reported - Past Family History Father Additional Family Medical History / Comment(s): Anxiety, depression, bipolar, cholecystectomy Mother Family Medical History: Thyroid Disorder Additional Family Medical History / Comment(s): Anxiety, depression. General Exam Limitations: no limitations General appearance: alert, in no apparent distress, other (This is a well- developed, well-nourished adult female in no acute distress.) ENT exam: Present: normal exam, mucous membranes moist Respiratory exam: Present: normal lung sounds bilaterally. Absent: respiratory distress, wheezes, rales, rhonchi, stridor Cardiovascular Exam: Present: regular rate, normal rhythm, normal heart sounds. Absent: systolic murmur, diastolic murmur, rubs, gallop, clicks GI/Abdominal exam: Present: soft, normal bowel sounds. Absent: distended, tenderness, guarding, rebound, rigid Neurological exam: Present: alert, oriented X3, CN II-XII intact Psychiatric exam: Present: normal affect, normal mood Skin exam: Present: warm, dry, intact, normal color. Absent: rash Course Vital Signs 06/13/21 16:14 Temperature 97.9 F Pulse Rate 71 Respiratory 16 Rate Blood Pressure 126/89 O2 Sat by Pulse 100 Oximetry Medical Decision Making - Medical Decision Making 21 year-old female patient presenting for heavy vaginal bleeding and cramping. LMP exactly one month ago. Unsure of status. Physical exam unremarkable. Vital signs normal. test negative. She did change pad just on arrival, recheck of pad after one hour showed scant red discharge, no blood clots. Did discuss that this is most likely her period. Discussed that other symptoms are most likely related to progesterone surge just prior to onset of period which is part of the normal menstrual cycle. Given her history of irregular periods she is instructed to follow-up with gynecology for further evaluation as soon as possible. Return parameters were discussed in detail. She verbalizes understanding and agrees with this plan. My attending is Dr. Barajas. - Lab Data Lab Results 06/13/21 06/13/21 Range/Units 16:54 16:54 Urine Color Light Red Urine Appearance Cloudy H (Clear) Urine pH 6.0 (5.0-8.0) Ur Specific [place] 1.027 (1.001-1.035) Urine Protein 1+ H (Negative) Urine Glucose (UA) Negative (Negative) Urine Ketones Negative (Negative) Urine Blood Large H (Negative) Urine Nitrite Negative (Negative) Urine Bilirubin Negative (Negative) Urine Urobilinogen <2.0 (<2.0) mg/dL Ur Leukocyte Esterase Small H (Negative) Urine RBC >182 H (0-5) /hpf Urine WBC 14 H (0-5) /hpf Ur Squamous Epith Cells 4 (0-4) /hpf Urine Bacteria Rare H (None) /hpf Urine Mucus Many H (None) /hpf Urine HCG, Qual Not Detected (Not Detectd) Disposition Clinical Impression: Menstruation Disposition: HOME SELF-CARE Condition: Good Instructions (If sedation given, give patient instructions): Dysmenorrhea (ED) Additional Instructions: Follow-up with gynecology for further evaluation as soon as possible. Follow-up through primary care physician as planned. Return for any new, worsening, or concerning symptoms. Prescriptions: Ibuprofen [Motrin] 600 mg PO Q8HR PRN #30 tab PRN Reason: Pain Ondansetron [Zofran ODT] 4 mg PO Q8HR PRN #10 tab PRN Reason: Nausea Is patient prescribed a controlled substance at d/c from ED?: No Referrals: Michelle Shultz MD [Primary Care Provider] - 1-2 days Time of Disposition: 17:18
[2021-06-13 17:08] LABS: Appearance,Urine Cloudy (Clear); Bacteria,Urine Rare /hpf; Bilirubin,Urine Negative (Negative); Blood,Urine Large (Negative); Color,Urine Light Red; Glucose,Urine (UA) Negative (Negative); Ketones,Urine Negative (Negative); Leukocyte Esterase,Urine Small (Negative); Mucus,Urine Many /hpf; Nitrite,Urine Negative (Negative); Protein,Urine 1+ (Negative); RBC,Urine >182 /hpf (0-5); Specific Gravity,Urine 1.027 (1.001-1.035); Squamous Epithelial Cell,Urine 4 /hpf (0-4); Urobilinogen,Urine <2.0 mg/dL (<2.0); WBC,Urine 14 /hpf (0-5)
== END 2021-06-13 17:27 | disposition home or self-care (01) ==
LOC: EC 16:09
DX: N92.0 Excessive and frequent menstruation with regular cycle (principal); J45.909 Unspecified asthma, uncomplicated; Z91.09 Other allergy status, other than to drugs and biological substances; Z91.018 Allergy to other foods
CPT/HCPCS: 81001; 81025; 87086; 99284; 96372; J1885

== ENCOUNTER 2021-06-24 22:18 | Emergency (ER) | payer OTHER ==
[2021-06-24 22:24] VITALS: RESP 18; TEMP 98.4
--- NOTE | 2021-06-24 22:48 | ED ---
Anxiety HPI - General Chief Complaint: Anxiety Stated Complaint: Chest pain, SOB Time Seen by Provider: 06/24/21 22:20 Source: EMS Mode of arrival: EMS - History of Present Illness MD Complaint: anxiety Onset/Timin -: hour(s) Symptoms: dyspnea, chest pain, dry mouth Place: home Previous History of Same: Yes Severity: moderate Quality: constant, similar to prior episodes Provoking factors: emotional stress Improves With: nothing Worsens With: nothing Associated symptoms: nausea/vomiting - Related Data Home Medications: Home Medications Medication Instructions Recorded Confirmed Acetaminophen Tab [Tylenol Tab] 1,000 mg PO Q6HR PRN 12/02/20 06/24/21 Albuterol Sulfate [Proair Hfa] 2 puff INHALATION RT-Q6H PRN 12/02/20 06/24/21 Previous Rx's Medication Instructions Recorded Ibuprofen [Motrin] 600 mg PO Q8HR PRN #30 tab 06/13/21 Ondansetron [Zofran ODT] 4 mg PO Q8HR PRN #10 tab 06/13/21 Allergies/Adverse Reactions: Allergies Allergy/AdvReac Type Severity Reaction Status Date / Time aloe vera Allergy Rash/Hives Verified 06/24/21 22:36 cinnamon Allergy Unknown Verified 06/24/21 22:36 strawberry Allergy Rash/Hives Verified 06/24/21 22:36 gluten AdvReac Nausea & Verified 06/24/21 22:36 Vomiting & Diarrhea Review of Systems ROS Statement: Those systems with pertinent positive or pertinent negative responses have been documented in the HPI. ROS Other: All systems not noted in ROS Statement are negative. Constitutional: Denies: fever, chills Respiratory: Reports: dyspnea. Denies: cough Cardiovascular: Reports: chest pain. Denies: palpitations, edema, syncope Gastrointestinal: Reports: nausea, vomiting. Denies: abdominal pain, diarrhea Genitourinary: Denies: dysuria, hematuria, abnormal menses Musculoskeletal: Denies: back pain Skin: Denies: rash Neurological: Denies: headache, weakness Psychiatric: Reports: anxiety Past Medical History Past Medical History: Asthma, GERD/Reflux Additional Past Medical History / Comment(s): vertigo, History of Any Multi-Drug Resistant Organisms: None Reported Past Surgical History: No Surgical Hx Reported Additional Past Surgical History / Comment(s): EGD, wisdom teeth extractions. Past Anesthesia/Blood Transfusion Reactions: No Reported Reaction Past Psychological History: Anxiety, Bipolar, Depression, PTSD Smoking Status: Never smoker Past Alcohol Use History: None Reported Past Drug Use History: None Reported - Past Family History Father Additional Family Medical History / Comment(s): Anxiety, depression, bipolar, cholecystectomy Mother Family Medical History: Thyroid Disorder Additional Family Medical History / Comment(s): Anxiety, depression. General Exam General appearance: alert, in no apparent distress, anxious Head exam: Present: atraumatic, normocephalic Eye exam: Present: normal appearance Respiratory exam: Present: normal lung sounds bilaterally. Absent: respiratory distress, wheezes, rales, rhonchi, stridor Cardiovascular Exam: Present: regular rate, normal rhythm, normal heart sounds. Absent: systolic murmur, diastolic murmur, rubs, gallop GI/Abdominal exam: Present: soft. Absent: tenderness, guarding, rebound Neurological exam: Present: alert Psychiatric exam: Present: anxious. Absent: depressed, agitated, flat affect, manic, homicidal ideation, suicidal ideation Skin exam: Present: warm, dry, intact, normal color. Absent: rash Course Vital Signs 06/24/21 06/24/21 22:20 23:44 Temperature 98.4 F Pulse Rate 90 87 Respiratory 18 18 Rate Blood Pressure 119/76 120/65 O2 Sat by Pulse 98 98 Oximetry Medical Decision Making - EKG Data -: EKG Interpreted by Me EKG shows normal: sinus rhythm (With sinus arrhythmia), axis (Normal), intervals (Normal), QRS complexes (Normal), ST-T waves (Normal) Rate: normal (Rate 75 bpm) Interpretation: LVH (Moderate voltage criteria) Disposition Clinical Impression: Acute anxiety Disposition: HOME SELF-CARE Condition: Good Instructions (If sedation given, give patient instructions): Generalized Anxiety Disorder (ED) Is patient prescribed a controlled substance at d/c from ED?: No Referrals: Michelle Shultz MD [Primary Care Provider] - 1-2 days
[2021-06-24] MEDS ORDERED: ONDANSETRON ODT 4 MG TAB PO STA (22:52)
[2021-06-24 23:51] VITALS: BP 120/65; PULSE 87
== END 2021-06-24 23:51 | disposition home or self-care (01) ==
LOC: EC 22:18
DX: F41.9 Anxiety disorder, unspecified (principal); R06.02 Shortness of breath; R07.9 Chest pain, unspecified; J45.909 Unspecified asthma, uncomplicated; Z91.018 Allergy to other foods; Z91.09 Other allergy status, other than to drugs and biological substances
CPT/HCPCS: 93005; 99285

== ENCOUNTER 2021-06-25 11:48 | Emergency (ER) | payer OTHER ==
[2021-06-25 11:52] VITALS: RESP 18
--- NOTE | 2021-06-25 12:11 | ED ---
General Adult HPI - General Chief complaint: Eye Problems Stated complaint: object in eye Time Seen by Provider: 06/25/21 11:53 Source: patient, RN notes reviewed Mode of arrival: ambulatory Limitations: no limitations - History of Present Illness Initial comments: 21-year-old female presents to the emergency department for evaluation of foreign body sensation in the left eye, onset this morning. States she thinks she may have an eyelash in her eye. Describes location of the discomfort as located in the lower lid toward the inner aspect of her eye. Reports rinsing her eye with water and contact solution prior to arrival. States she does not wear contacts and has been doing her best to avoid rubbing her eye. Denies blurry vision, vision changes, pain with eye movement, or drainage from the eye. - Related Data Home Medications Medication Instructions Recorded Confirmed Albuterol Sulfate [Proair Hfa] 2 puff INHALATION RT-Q6H PRN 12/02/20 06/25/21 Albuterol Nebulized [Ventolin 2.5 mg INHALATION RT-Q6H PRN 06/25/21 06/25/21 Nebulized] Previous Rx's Medication Instructions Recorded Ibuprofen [Motrin] 600 mg PO Q8HR PRN #30 tab 06/13/21 Ondansetron [Zofran ODT] 4 mg PO Q8HR PRN #10 tab 06/13/21 Erythromycin Ophth Oint [Romycin 1 applic LEFT EYE QID 7 Days #1 gm 06/25/21 Ophth Oint] Allergies Allergy/AdvReac Type Severity Reaction Status Date / Time aloe vera Allergy Rash/Hives Verified 06/25/21 12:14 cinnamon Allergy Unknown Verified 06/25/21 12:14 strawberry Allergy Rash/Hives Verified 06/25/21 12:14 gluten AdvReac Nausea & Verified 06/25/21 12:14 Vomiting & Diarrhea Review of Systems ROS Statement: Those systems with pertinent positive or pertinent negative responses have been documented in the HPI. ROS Other: All systems not noted in ROS Statement are negative. Past Medical History Past Medical History: Asthma, GERD/Reflux Additional Past Medical History / Comment(s): vertigo, History of Any Multi-Drug Resistant Organisms: None Reported Past Surgical History: No Surgical Hx Reported Additional Past Surgical History / Comment(s): EGD, wisdom teeth extractions. Past Anesthesia/Blood Transfusion Reactions: No Reported Reaction Past Psychological History: Anxiety, Bipolar, Depression, PTSD Smoking Status: Never smoker Past Alcohol Use History: None Reported Past Drug Use History: None Reported - Past Family History Father Additional Family Medical History / Comment(s): Anxiety, depression, bipolar, cholecystectomy Mother Family Medical History: Thyroid Disorder Additional Family Medical History / Comment(s): Anxiety, depression. General Exam Limitations: no limitations General appearance: alert, in no apparent distress Eye exam: Present: normal appearance (Well-developed, well-nourished female in no acute distress. Initial temperature 98.3, pulse 58, respirations 18, blood pressure 120/52, pulse ox 98% on room air.), PERRL, EOMI. Absent: scleral icterus, conjunctival injection, periorbital swelling, periorbital tenderness Expanded Eyelids: Normal Inspection: Bilateral, Stye: Left Pupils: Regular, Round: Bilateral, Reactive: Bilateral Sclera/Conjunctival: Normal Inspection: Bilateral Visual acuity (R) = 20/: 20 Visual acuity (L) = 20/: 20 With correction: No IOP (L) in mmH IOP measured with: Tonopen ENT exam: Present: normal exam, normal oropharynx, mucous membranes moist Respiratory exam: Present: normal lung sounds bilaterally. Absent: respiratory distress, wheezes, rales, rhonchi, stridor Cardiovascular Exam: Present: regular rate, normal rhythm, normal heart sounds. Absent: systolic murmur, diastolic murmur, rubs, gallop, clicks Neurological exam: Present: alert, oriented X3, normal gait Psychiatric exam: Present: normal affect, normal mood Skin exam: Present: warm, dry, intact, normal color. Absent: rash Course Vital Signs 06/25/21 06/25/21 11:50 13:57 Temperature 98.3 F 98.2 F Pulse Rate 58 L 63 Respiratory 18 18 Rate Blood Pressure 128/52 126/70 O2 Sat by Pulse 98 98 Oximetry Procedures - Procedures Initial comment: Left eye stained with fluorescein and examined with slit lamp. No evidence of foreign body, corneal abrasion, or focal area of uptake. Tolerated procedure without pain or difficulty. Patient is noted to have a small hordeolum on the left lower lid toward the inner canthus. Medical Decision Making - Medical Decision Making 21-year-old female with no significant past medical history presents to the emergency Department with complaints of sensation of foreign body and the left thigh. Upon exam, patient is well-appearing and in no acute distress. There is no evidence of local irritant; no periorbital erythema, conjunctivitis, scleral injection, or discharge noted from the left eye. Fluorescein staining of the eye revealed no focal area of uptake. Visual acuity and IOP measurement unremarkable. There is a very small hordeolum visualized on the left lower lid toward the inner canthus of the eye. Findings were discussed with patient. She is instructed to apply warm compresses to the affected area several times daily. Encouraged to wash hands with antibacterial soap and to trim nails to fingertip length. She is prescribed erythromycin ointment and instructed on its use. Encouraged to follow up with her PCP or eye doctor for a recheck early next week. Return parameters were discussed in detail. Patient verbalizes understanding and agrees with this plan. This patient's care was discussed with my attending Dr. Graham. Disposition Clinical Impression: Hordeolum externum left lower eyelid Disposition: HOME SELF-CARE Condition: Stable Instructions (If sedation given, give patient instructions): Vito (ED) Additional Instructions: Apply warm compress to the affected area. May take Tylenol or Motrin as needed for discomfort. Apply antibiotic ointment to the lower lid. Avoid rubbing your eye and wash her hands frequently. Follow-up with your eye doctor for a recheck next week. Return to the emergency department with any new, worsening, or concerning symptoms. Prescriptions: Erythromycin Ophth Oint [Romycin Ophth Oint] 1 applic LEFT EYE QID 7 Days #1 gm Is patient prescribed a controlled substance at d/c from ED?: No Referrals: Michelle Shultz MD [Primary Care Provider] - 1-2 days Time of Disposition: 13:22
[2021-06-25] MEDS ORDERED: PROPARACAINE 0.5% OPHTH DROPS 15 ML BTL ONE (12:14)
[2021-06-25] MEDS: TETRACAINE 0.5% OPHTH (PF) DROPS 4 ML BTL LEFT EYE STA (12:31)
[2021-06-25] MEDS: FLUORESCEIN STRIPS 1 MG STRIP LEFT EYE ONE (12:32)
[2021-06-25] MEDS: PROPARACAINE 0.5% OPHTH DROPS 15 ML BTL LEFT EYE STA (12:32)
[2021-06-25] MEDS: ERYTHROMYCIN 5 MG/GM OPHTH OINT 1 GM TUBE LEFT EYE STA (13:54)
[2021-06-25 13:58] VITALS: BP 126/70; PULSE 63; TEMP 98.2
== END 2021-06-25 13:57 | disposition home or self-care (01) ==
LOC: EC 11:48
DX: H00.015 Hordeolum externum left lower eyelid (principal); J45.909 Unspecified asthma, uncomplicated; Z91.048 Other nonmedicinal substance allergy status; Z91.018 Allergy to other foods
CPT/HCPCS: 99283

== ENCOUNTER 2021-07-09 17:59 | Emergency (ER) | payer OTHER ==
[2021-07-09 18:18] VITALS: TEMP 98.4
--- NOTE | 2021-07-09 21:24 | ED ---
General Adult HPI - General Chief complaint: Nausea/Vomiting/Diarrhea Stated complaint: nausea, diarrhea Time Seen by Provider: 07/09/21 20:54 Source: patient Mode of arrival: EMS Limitations: no limitations - History of Present Illness Initial comments: This 21-year-old female presents emergency Department with rash on her left calf that has been there since 2019 and becomes itchy at times. Patient states starting today began to get itchy and states she sometimes takes Benadryl for this, however she does not have anymore left the home. When asked about her N/V/D patient states she did vomit once this morning and had 1 episode of diarrhea today, however states she did start her menstrual cycle today and does always experience vomiting nausea and diarrhea in the first couple days of her cycle. Patient states she history of asthma and sometimes short of breath, however she denies any shortness of breath at this time and states "I'm here for this rash on my calf that has been there since 2019." Patient denies any chest pain, abdominal pain, nausea, vomiting, hemoptysis, change in bowel or bladder, fever, erythema to left calf, loss of sensation of right leg, and right calf, change in vision, headache, dizziness. She denies having a physical integration practitioner for this issue and states she would like one. - Related Data Home Medications Medication Instructions Recorded Confirmed Albuterol Sulfate [Proair Hfa] 2 puff INHALATION RT-Q6H PRN 12/02/20 06/25/21 Albuterol Nebulized [Ventolin 2.5 mg INHALATION RT-Q6H PRN 06/25/21 06/25/21 Nebulized] Previous Rx's Medication Instructions Recorded Ibuprofen [Motrin] 600 mg PO Q8HR PRN #30 tab 06/13/21 Ondansetron [Zofran ODT] 4 mg PO Q8HR PRN #10 tab 06/13/21 Erythromycin Ophth Oint [Romycin 1 applic LEFT EYE QID 7 Days #1 gm 06/25/21 Ophth Oint] diphenhydrAMINE [Benadryl] 25 mg PO Q6HR PRN #16 capsule 07/09/21 Allergies Allergy/AdvReac Type Severity Reaction Status Date / Time aloe vera Allergy Rash/Hives Verified 07/09/21 18:14 cinnamon Allergy Unknown Verified 07/09/21 18:14 strawberry Allergy Rash/Hives Verified 07/09/21 18:14 gluten AdvReac Nausea & Verified 07/09/21 18:14 Vomiting & Diarrhea Review of Systems ROS Statement: Those systems with pertinent positive or pertinent negative responses have been documented in the HPI. ROS Other: All systems not noted in ROS Statement are negative. Past Medical History Past Medical History: Asthma, GERD/Reflux Additional Past Medical History / Comment(s): vertigo, History of Any Multi-Drug Resistant Organisms: None Reported Past Surgical History: No Surgical Hx Reported Additional Past Surgical History / Comment(s): EGD, wisdom teeth extractions. Past Anesthesia/Blood Transfusion Reactions: No Reported Reaction Past Psychological History: Anxiety, Bipolar, Depression, PTSD Smoking Status: Never smoker Past Alcohol Use History: None Reported Past Drug Use History: None Reported - Past Family History Father Additional Family Medical History / Comment(s): Anxiety, depression, bipolar, cholecystectomy Mother Family Medical History: Thyroid Disorder Additional Family Medical History / Comment(s): Anxiety, depression. General Exam Limitations: no limitations General appearance: alert, in no apparent distress Head exam: Present: atraumatic, normocephalic Eye exam: Present: normal appearance, PERRL, EOMI ENT exam: Present: mucous membranes moist Neck exam: Present: full ROM Respiratory exam: Present: normal lung sounds bilaterally. Absent: respiratory distress, wheezes, rales, rhonchi, stridor Cardiovascular Exam: Present: regular rate, normal rhythm, normal heart sounds. Absent: systolic murmur, diastolic murmur, rubs, gallop, clicks GI/Abdominal exam: Present: soft, normal bowel sounds. Absent: distended, tenderness, guarding, rebound, rigid Extremities exam: Present: full ROM, other (Minimally erythematous patch on left calf about 7cm x 7cm, she states it has been this size since 2020 and sometimes when she itches it starts to get a little bit red. No warmth or swelling to left leg. ). Absent: tenderness, normal capillary refill, pedal edema, joint swelling, calf tenderness Back exam: Present: full ROM. Absent: tenderness, CVA tenderness (R), CVA tenderness (L), paraspinal tenderness, vertebral tenderness Neurological exam: Present: alert, oriented X3, CN II-XII intact Psychiatric exam: Present: normal affect, normal mood Skin exam: Present: warm, dry, intact, normal color Course Vital Signs 07/09/21 07/09/21 18:14 21:38 Temperature 98.4 F Pulse Rate 85 78 Respiratory 20 18 Rate Blood Pressure 104/67 110/78 O2 Sat by Pulse 99 98 Oximetry Medical Decision Making - Medical Decision Making This 21-year-old female presents emergency Department with a rash on her left calf that is been there since 2019. Patient states it is itchy on and off and that she she takes Benadryl for this, however today she did not have any Be nadryl because she doesn't have any left at home. Benadryl given to patient and dermatology referral given. Prescription for Benadryl was given the patient. Strict return precautions were discussed. Patient verbally agreed to plan. Patient sounded stable condition. Case discussed with the attending, . - Lab Data Lab Results 07/09/21 Range/Units 18:20 Coronavirus (PCR) Not Detected (Not Detectd) Disposition Clinical Impression: Dermatitis Disposition: HOME SELF-CARE Condition: Stable Instructions (If sedation given, give patient instructions): Dermatitis (ED) Prescriptions: diphenhydrAMINE [Benadryl] 25 mg PO Q6HR PRN #16 capsule PRN Reason: Itching Is patient prescribed a controlled substance at d/c from ED?: No Referrals: Michelle Shultz MD [Primary Care Provider] - 1-2 days Rona Vasques MD [STAFF PHYSICIAN] - 1-2 days Time of Disposition: 21:36
[2021-07-09] MEDS ORDERED: diphenhydrAMINE 25 MG CAP PO STA (21:33)
[2021-07-09 21:39] VITALS: BP 110/78; PULSE 78; RESP 18
== END 2021-07-09 21:39 | disposition home or self-care (01) ==
LOC: EC 17:59
DX: L30.9 Dermatitis, unspecified (principal); R19.7 Diarrhea, unspecified; R11.2 Nausea with vomiting, unspecified; Z20.822 Contact with and (suspected) exposure to COVID-19; J45.909 Unspecified asthma, uncomplicated; Z91.09 Other allergy status, other than to drugs and biological substances; Z91.018 Allergy to other foods
CPT/HCPCS: 87635; 99284

== ENCOUNTER 2021-07-22 20:38 | Emergency (ER) | payer OTHER ==
[2021-07-22 21:22] VITALS: BP 127/88; PULSE 98; RESP 16; TEMP 97.1
[2021-07-22] MEDS ORDERED: SODIUM CHLORIDE 0.9% 1,000 ML IV STA (22:35)
[2021-07-22] MEDS ORDERED: KETOROLAC 15 MG/ML 1 ML VIAL IVP STA (22:35)
[2021-07-22] MEDS ORDERED: diphenhydrAMINE 50 MG/ML 1 ML VIAL IVP STA (22:35)
[2021-07-22] MEDS ORDERED: METOCLOPRAMIDE 5 MG/ML 2 ML VIAL IVP STA (22:35)
--- NOTE | 2021-07-22 23:46 | ED ---
Headache HPI - General Chief Complaint: Headache Stated Complaint: Dizziness Time Seen by Provider: 07/22/21 22:19 Mode of arrival: ambulatory Limitations: no limitations - History of Present Illness Initial Comments: Patient is a 21-year-old female presenting for evaluation. Headache has been present for 2 days. It is a sharp pain located in the right side above the eye. Patient also admits to sensation of a band tightening around the head. She has been taking Tylenol at home which has not relieved the pain. Admits to nausea and dizziness. She denies vision changes, auras, vomiting, chest pain, shortness of breath, fever, chills, sensory deficits, weakness, neck stiffness. Constitutional: Denies fever, chills HEENT: Denies congestion, sore throat, sinus pain, vision changes, eye pain Cardiovascular: Denies chest pain, shortness of breath, palpitations Respiratory: Denies SOB, hemoptysis, cough, history of PE GI: Denies vomiting, diarrhea, constipation, abdominal pain, hematemesis : Denies dysuria, urgency, frequency, hematuria, flank pain MSK: Denies gait disturbance, injury, loss of ROM Neuro: Denies numbness, tingling, weakness, neck stiffness Integument: Denies rash, pruritus, history of similar rash, exposure to allergen - Related Data Home Medications Medication Instructions Recorded Confirmed Albuterol Sulfate [Proair Hfa] 2 puff INHALATION RT-Q6H PRN 12/02/20 07/12/21 Albuterol Nebulized [Ventolin 2.5 mg INHALATION RT-Q6H PRN 06/25/21 07/12/21 Nebulized] Previous Rx's Medication Instructions Recorded Ibuprofen [Motrin] 600 mg PO Q8HR PRN #30 tab 06/13/21 Ondansetron [Zofran ODT] 4 mg PO Q8HR PRN #10 tab 06/13/21 diphenhydrAMINE [Benadryl] 25 mg PO Q6HR PRN #16 capsule 07/09/21 Allergies Allergy/AdvReac Type Severity Reaction Status Date / Time aloe vera Allergy Rash/Hives Verified 07/22/21 21:21 cinnamon Allergy Unknown Verified 07/22/21 21:21 strawberry Allergy Rash/Hives Verified 07/22/21 21:21 gluten AdvReac Nausea & Verified 07/22/21 21:21 Vomiting & Diarrhea Review of Systems ROS Statement: Those systems with pertinent positive or pertinent negative responses have been documented in the HPI. ROS Other: All systems not noted in ROS Statement are negative. Past Medical History Past Medical History: Asthma, GERD/Reflux Additional Past Medical History / Comment(s): vertigo, History of Any Multi-Drug Resistant Organisms: None Reported Past Surgical History: No Surgical Hx Reported Additional Past Surgical History / Comment(s): EGD, wisdom teeth extractions. Past Anesthesia/Blood Transfusion Reactions: No Reported Reaction Past Psychological History: Anxiety, Bipolar, Depression, PTSD Smoking Status: Never smoker Past Alcohol Use History: None Reported Past Drug Use History: None Reported - Past Family History Father Additional Family Medical History / Comment(s): Anxiety, depression, bipolar, cholecystectomy Mother Family Medical History: Thyroid Disorder Additional Family Medical History / Comment(s): Anxiety, depression. General Exam Limitations: no limitations General appearance: alert, in no apparent distress Head exam: Present: atraumatic, normocephalic, normal inspection Eye exam: Present: normal appearance, PERRL, EOMI. Absent: scleral icterus, conjunctival injection, periorbital swelling ENT exam: Present: normal exam, mucous membranes moist Neck exam: Present: normal inspection, full ROM. Absent: tenderness (paraspinal muscle tightness, no midline tenderness), meningismus, lymphadenopathy Respiratory exam: Present: normal lung sounds bilaterally. Absent: respiratory distress, wheezes, rales, rhonchi, stridor Cardiovascular Exam: Present: regular rate, normal rhythm, normal heart sounds. Absent: systolic murmur, diastolic murmur, rubs, gallop, clicks Neurological exam: Present: alert, oriented X3, CN II-XII intact Psychiatric exam: Present: normal affect, normal mood Skin exam: Present: warm, dry, intact, normal color. Absent: rash Course Vital Signs 07/22/21 21:19 Temperature 97.1 F L Pulse Rate 98 Respiratory 16 Rate Blood Pressure 127/88 O2 Sat by Pulse 99 Oximetry Medical Decision Making - Medical Decision Making Patient is a 21-year-old female presenting for evaluation of headache. Headache is unilateral on the right side, sharp, as been persistent for about 2 days. Tylenol does not relieve the pain. On exam there are no neurological deficits. Patient was given Toradol, Benadryl, Reglan, and 1 L fluid bolus. Patient responded well to treatment in symptoms are completely alleviated. Advised pt to control pain at home by alternating motrin and tylenol as needed, may take benadryl at home for nausea. Keep symptom diary to keep track of and avoid triggers. Report back to ER with worsening symptoms or new onset alarm symptoms. Discussed return parameters. Answered all questions. patient conveyed verbal understanding and agreed to the plan. i discussed this case my attending dr. colon. Disposition Clinical Impression: Tension headache, Migraine Disposition: HOME SELF-CARE Condition: Good Instructions (If sedation given, give patient instructions): Migraine Headache (ED), Tension Headache (ED), Acute Headache (ED) Additional Instructions: Follow-up with primary care provider in one week. Symptom diary to track triggers of migraines. Alternate Motrin and Tylenol as needed for pain control. Report back to ER with worsening symptoms or new onset alarming symptoms, including but not limited to vision changes, vomiting, headache unresponsive to Motrin or Tylenol. Is patient prescribed a controlled substance at d/c from ED?: No Referrals: Michelle Shultz MD [Primary Care Provider] - 07/29/21 Time of Disposition: 23:47
== END 2021-07-23 00:22 | disposition home or self-care (01) ==
LOC: EC 20:38
DX: G43.909 Migraine, unspecified, not intractable, without status migrainosus (principal); G44.209 Tension-type headache, unspecified, not intractable; J45.909 Unspecified asthma, uncomplicated; Z91.09 Other allergy status, other than to drugs and biological substances; Z91.018 Allergy to other foods
CPT/HCPCS: 99283; 96374; 96375; 96361; J1200; J2765; J1885

== ENCOUNTER 2021-07-30 05:48 | Emergency (ER) | payer OTHER ==
[2021-07-30 06:06] VITALS: BP 136/87; PULSE 97; RESP 18; TEMP 98.7
[2021-07-30] MEDS ORDERED: ONDANSETRON ODT 4 MG TAB PO STA (06:32)
--- NOTE | 2021-07-30 06:34 | ED ---
General Adult HPI - General Chief complaint: Fever Stated complaint: Fever, headache Time Seen by Provider: 07/30/21 06:13 Source: EMS, RN notes reviewed Mode of arrival: EMS Limitations: no limitations - History of Present Illness Initial comments: Patient is a 21-year-old female presented to the emergency room today with chief complaint of fever 3 days. Patient does admit that her boyfriend is sick at home with similar symptoms. He had a negative cover test. She states she has not been tested. She isn't feeling nauseated today. States she's had a mild cough. Denies any other complaints or symptoms. Patient denies any shortness of breath, chest pain, back pain, abdominal pain, vomiting, numbness or tingling, dysuria or hematuria, constipation or diarrhea, headaches or visual changes, or any other complaints. - Related Data Home Medications Medication Instructions Recorded Confirmed Albuterol Sulfate [Proair Hfa] 2 puff INHALATION RT-Q6H PRN 12/02/20 07/12/21 Albuterol Nebulized [Ventolin 2.5 mg INHALATION RT-Q6H PRN 06/25/21 07/12/21 Nebulized] Previous Rx's Medication Instructions Recorded Ibuprofen [Motrin] 600 mg PO Q8HR PRN #30 tab 06/13/21 Ondansetron [Zofran ODT] 4 mg PO Q8HR PRN #10 tab 06/13/21 diphenhydrAMINE [Benadryl] 25 mg PO Q6HR PRN #16 capsule 07/09/21 Allergies Allergy/AdvReac Type Severity Reaction Status Date / Time aloe vera Allergy Rash/Hives Verified 07/30/21 06:01 cinnamon Allergy Unknown Verified 07/30/21 06:01 strawberry Allergy Rash/Hives Verified 07/30/21 06:01 gluten AdvReac Nausea & Verified 07/30/21 06:01 Vomiting & Diarrhea Review of Systems ROS Statement: Those systems with pertinent positive or pertinent negative responses have been documented in the HPI. ROS Other: All systems not noted in ROS Statement are negative. Past Medical History Past Medical History: Asthma, GERD/Reflux Additional Past Medical History / Comment(s): vertigo, History of Any Multi-Drug Resistant Organisms: None Reported Past Surgical History: No Surgical Hx Reported Additional Past Surgical History / Comment(s): EGD, wisdom teeth extractions. Past Anesthesia/Blood Transfusion Reactions: No Reported Reaction Past Psychological History: Anxiety, Bipolar, Depression, PTSD Smoking Status: Never smoker Past Alcohol Use History: None Reported Past Drug Use History: None Reported - Past Family History Father Additional Family Medical History / Comment(s): Anxiety, depression, bipolar, cholecystectomy Mother Family Medical History: Thyroid Disorder Additional Family Medical History / Comment(s): Anxiety, depression. General Exam - General Exam Comments Initial Comments: General: The patient is awake and alert, in no distress, and does not appear acutely ill. Eye: extra-ocular movements are intact. No nystagmus. There is normal conjunctiva bilaterally. No signs of icterus. Ears, nose, mouth and throat: There are moist mucous membranes and no oral lesions. Neck: The neck is supple, there is no tenderness or JVD. Cardiovascular: There is a regular rate and rhythm. No murmur, rub or gallop is appreciated. Respiratory: Lungs are clear to auscultation, respirations are non-labored, breath sounds are equal. No wheezes, stridor, rales, or rhonchi. Musculoskeletal: Normal ROM, no tenderness. Strength 5/5. Sensation intact. Neurological: A&O x 3. CN II-XII intact, There are no obvious motor or sensory deficits. Coordination appears grossly intact. Speech is normal. Skin: Skin is warm and dry and no rashes or lesions are noted. Psychiatric: Cooperative, appropriate mood & affect, normal judgment. Limitations: no limitations Course Vital Signs 07/30/21 06:01 Temperature 98.7 F Pulse Rate 97 Respiratory 18 Rate Blood Pressure 136/87 O2 Sat by Pulse 95 Oximetry Medical Decision Making - Medical Decision Making Patient's comatose was positive. Chest x-rays unremarkable. Patient's vitals are stable. Was discussed with patient about continue Tylenol/ibuprofen for fever control and body aches at home. Advised to watch her pulse ox return here to the emergency room symptoms increase worsen. She states her stay and is in agreement. - Lab Data Lab Results 07/30/21 Range/Units 07:06 Coronavirus (PCR) Detected A (Not Detectd) Disposition Clinical Impression: COVID-19 Disposition: HOME SELF-CARE Condition: Good Instructions (If sedation given, give patient instructions): COVID-19 (Coronavirus Disease 2019) (ED) Additional Instructions: Please continue Tylenol/ibuprofen for fever control. Return to emergency room symptoms increase or worsen or other concerns. Is patient prescribed a controlled substance at d/c from ED?: No If prescribed controlled substance>3 days was MAPS reviewed?: Prescribed <3 Days Referrals: Michelle Shultz MD [Primary Care Provider] - 1-2 days Time of Disposition: 07:41
--- NOTE | 2021-07-30 07:17 | XR ---
EXAM: XR Chest, 1 View CLINICAL HISTORY: ITS.REASON XR Reason: cough TECHNIQUE: Frontal view of the chest. COMPARISON: 05/22/21. FINDINGS: Lungs: Unremarkable. No consolidation. Pleural space: Unremarkable. No pneumothorax. Heart: Unremarkable. No cardiomegaly. Mediastinum: Unremarkable. Bones/joints: Unremarkable. IMPRESSION: No acute cardiopulmonary process.
== END 2021-07-30 08:07 | disposition home or self-care (01) ==
LOC: EC 05:48
DX: U07.1 COVID-19 (principal); J45.909 Unspecified asthma, uncomplicated; Z91.09 Other allergy status, other than to drugs and biological substances; Z91.018 Allergy to other foods
CPT/HCPCS: 71045; 87635; 99284

== ENCOUNTER 2021-08-03 07:30 | Emergency (ER) | payer OTHER ==
[2021-08-03 07:35] VITALS: RESP 18
[2021-08-03] MEDS ORDERED: ACETAMINOPHEN TAB 500 MG TAB PO STA (07:37)
--- NOTE | 2021-08-03 08:04 | XR ---
EXAMINATION TYPE: XR chest 2V DATE OF EXAM: 08/03/2021 COMPARISON: 07/30/2021 HISTORY: 21 year-old female shortness of breath TECHNIQUE: PA and lateral views FINDINGS: The cardiomediastinal silhouette, aorta, and pulmonary vasculature are within normal limits. Lungs an d pleural spaces are clear. IMPRESSION: No acute cardiopulmonary process.
--- NOTE | 2021-08-03 10:22 | US ---
EXAMINATION TYPE: US carotid duplex BILAT DATE OF EXAM: 08/03/2021 COMPARISON: NONE CLINICAL HISTORY: Right neck swelling. Right neck swelling. EXAM MEASUREMENTS: RIGHT: Peak Systolic Velocity (PSV) cm/sec ----- Right CCA: 107.4 ----- Right ICA: 100.7 ----- Right ECA: 119.8 ICA/CCA ratio: 0.9 RIGHT: End Diastole cm/sec ----- Right CCA: 24.1 ----- Right ICA: 29.2 ----- Right ECA: 16.3 LEFT: Peak Systolic Velocity (PSV) cm/sec ----- Left CCA: 104.3 ----- Left ICA: 109.1 ----- Left ECA: 83.1 ICA/CCA ratio: 1.0 LEFT: End Diastole cm/sec ----- Left CCA: 21.0 ----- Left ICA: 25.6 ----- Left ECA: 12.8 VERTEBRALS (direction of flow): Right Vertebral: Antegrade Left Vertebral: Antegrade Rhythm: Normal No elevated velocities at this time. Two hypoechoic areas with hyperechoic centers seen within the right neck. Larger area measures 2.0 x 1.1 x 0.9 cm. Hypoechoic area with hyperechoic center seen within the left neck: 2.7 x 1.9 x 0.8 cm. IMPRESSION: No hemodynamically significant stenosis in either internal carotid artery . Elevated donnell ocities bilateral common carotid arteries raises concern for underlying hypertension. Correlate clini vladislav. Nonspecific prominent borderline enlarged lymph nodes in the right neck are present. Correlate clinically to determine need for further workup possibly by contrast enhanced neck CT. Criteria for Assigning % of Stenosis / Diameter reduction (Estimation based on the indirect measurements of the internal carotid artery velocities (ICA PSV). 1. Normal (no stenosis)=ICA PSV < 125 cm/s: ratio < 2.0: ICA EDV<40 cm/s. 2. Less than 50% stenosis=ICA PSV < 125 cm/s: ratio < 2.0: ICA EDV<40 cm/s. 3. 50 to 69% stenosis=ICA PSV of 125 to 230 cm/s: ration 2.0 ? 4.0: ICA EDV 40-100 cm/s. 4. Greater than 70% stenosis to near occlusion= ICA PSV > 230 cm/s: ratio > 4.0: ICA EDV > 100 cm/s. 5. Near occlusion= ICA PSV velocities may be low or undetectable: variable ratio and ICA EDV. 6. Total occlusion=unable to detect flow.
--- NOTE | 2021-08-03 10:45 | ED ---
General Adult HPI - General Chief complaint: Upper Respiratory Infection Stated complaint: Covid+/KERA Time Seen by Provider: 08/03/21 08:53 Source: patient, RN notes reviewed, old records reviewed Mode of arrival: ambulatory Limitations: no limitations - History of Present Illness Initial comments: Patient is a 21-year-old female who has a known COVID-19 diagnosis, as well as a history of asthma presents to the emergency department she believes she has a fever. States she is uncertain where her thermometer at home when. She endorses occasional cough as well as joint pain. Her primary concern is a "lump" over her right neck. She states that does hurt her when she turns left and right with her neck. Denies any difficulty breathing or swallowing. Denies any nausea, vomiting, diarrhea. Still has symptoms of taste as well as an appetite. She is no other acute complaints at this time. One of the "lump" evaluated. She states everyone at home has COVID-19. - Related Data Home Medications Medication Instructions Recorded Confirmed Albuterol Sulfate [Proair Hfa] 2 puff INHALATION RT-Q6H PRN 12/02/20 08/03/21 Albuterol Nebulized [Ventolin 2.5 mg INHALATION RT-Q6H PRN 06/25/21 08/03/21 Nebulized] Allergies Allergy/AdvReac Type Severity Reaction Status Date / Time aloe vera Allergy Rash/Hives Verified 08/03/21 10:22 cinnamon Allergy Unknown Verified 08/03/21 10:22 strawberry Allergy Rash/Hives Verified 08/03/21 10:22 gluten AdvReac Nausea & Verified 08/03/21 10:22 Vomiting & Diarrhea Review of Systems ROS Statement: Those systems with pertinent positive or pertinent negative responses have been documented in the HPI. Review of Systems: CONST: Denies fever EYES: Denies blurry vision ENT: Denies nasal congestion C/V: Denies Chest pain RESP: Endorses cough GI: Denies abdominal pain : Denies dysuria SKIN: Denies rash. MSK: Denies joint pain. NEURO: Denies headache ROS Other: All systems not noted in ROS Statement are negative. Past Medical History Past Medical History: Asthma, GERD/Reflux Additional Past Medical History / Comment(s): vertigo, History of Any Multi-Drug Resistant Organisms: None Reported Past Surgical History: No Surgical Hx Reported Additional Past Surgical History / Comment(s): EGD, wisdom teeth extractions. Past Anesthesia/Blood Transfusion Reactions: No Reported Reaction Past Psychological History: Anxiety, Bipolar, Depression, PTSD Smoking Status: Never smoker Past Alcohol Use History: None Reported Past Drug Use History: None Reported - Past Family History Father Additional Family Medical History / Comment(s): Anxiety, depression, bipolar, cholecystectomy Mother Family Medical History: Thyroid Disorder Additional Family Medical History / Comment(s): Anxiety, depression. General Exam - General Exam Comments Initial Comments: General: Appears in no acute distress. Patient is febrile HEAD: Normal with no signs of head trauma. EYES: PERRLA, EOMI, conjunctiva normal, no discharge. ENT: Hearing grossly intact, normal oropharynx. No stridor. No tongue swelling or floor of mouth swelling. Patient does have a very mild anterior cervical lymph node swelling. No carotid bruits. Normal posterior oropharynx. RESPIRATORY: Clear breath sounds bilaterally. No wheezes, rales, or rhonchi. C/V: Mildly tachycardic secondary to fever. S1 and S2 auscultated. Peripheral pulses 2+ and intact throughout. No carotid bruits. ABD: Abd is soft, nontender, nondistended EXT: Normal range of motion, no obvious deformity SKIN: No rashes or lesions observed on exposed skin. NEURO: Alert and oriented 4. Limitations: no limitations Course Vital Signs 08/03/21 08/03/21 07:30 11:17 Temperature 100.7 F H 98.7 F Pulse Rate 107 H 98 Respiratory 18 18 Rate Blood Pressure 106/63 110/54 O2 Sat by Pulse 99 98 Oximetry Medical Decision Making - Medical Decision Making Based on the patient's presentation and physical exam, I do believe she is febrile from her active COVID-19 infection. She is externally concerned regarding swelling on her neck. She is requesting some sort of imaging to evaluate her. I did offer an ultrasound which she did accept. Patient will be given Tylenol for her fever. Chest x-ray was already obtained in triage and showed no acute cardiopulmonary process. She was in agreement this plan. Ultrasound revealed normal bilateral carotids, with the enlarged lymph nodes in the right neck. No other findings. On reevaluation, patient's fever is resolved. Vital signs within normal limits and stable. I updated her on the findings of her ultrasound. I believe it is safer to be discharged home. She was in agreement this plan. Enlarged lymph nodes are likely secondary to her active COVID-19 infection. Patient has breathing treatments as well as inhalers at home. We discussed quarantine. I instructed the patient to follow up with their PCP in the next 3 days. I explained that the patient should return to the emergency department if they e xperience any worsening symptoms. Strict return precautions were discussed with the patient. The patient expressed understanding of these instructions. I answered all questions that the patient had. The patient was discharged home in good condition with their prescriptions and follow up information. Disposition Clinical Impression: COVID-19 virus infection Disposition: HOME SELF-CARE Condition: Good Instructions (If sedation given, give patient instructions): COVID-19 (Coronavirus Disease 2019) (ED) Is patient prescribed a controlled substance at d/c from ED?: No Referrals: Michelle Shultz MD [Primary Care Provider] - 1-2 days
[2021-08-03 11:18] VITALS: BP 110/54; PULSE 98; TEMP 98.7
== END 2021-08-03 11:17 | disposition home or self-care (01) ==
LOC: EC 07:30
DX: U07.1 COVID-19 (principal); J45.909 Unspecified asthma, uncomplicated; Z91.09 Other allergy status, other than to drugs and biological substances; Z91.018 Allergy to other foods
CPT/HCPCS: 71046; 93880; 99284

== ENCOUNTER 2021-08-10 07:26 | Emergency (ER) | payer OTHER ==
[2021-08-10 07:38] VITALS: BP 131/57; PULSE 57; RESP 18; TEMP 98.6
--- NOTE | 2021-08-10 08:01 | ED ---
ENT HPI - General Chief complaint: ENT Stated complaint: ENT Time Seen by Provider: 08/10/21 07:45 Source: patient, RN notes reviewed Mode of arrival: ambulatory Limitations: no limitations - History of Present Illness Initial comments: 21-year-old female presents emergency department with concern of possible left ear foreign body. Patient states she feels like it was plugged she is much peroxide which seemed to help but she still is worried she may have a bug in her ear. Patient denies any fevers or chills no drainage no other complaints. - Related Data Home Medications Medication Instructions Recorded Confirmed Albuterol Sulfate [Proair Hfa] 2 puff INHALATION RT-Q6H PRN 12/02/20 08/03/21 Albuterol Nebulized [Ventolin 2.5 mg INHALATION RT-Q6H PRN 06/25/21 08/03/21 Nebulized] Allergies Allergy/AdvReac Type Severity Reaction Status Date / Time aloe vera Allergy Rash/Hives Verified 08/10/21 07:38 cinnamon Allergy Unknown Verified 08/10/21 07:38 strawberry Allergy Rash/Hives Verified 08/10/21 07:38 gluten AdvReac Nausea & Verified 08/10/21 07:38 Vomiting & Diarrhea Review of Systems ROS Statement: Those systems with pertinent positive or pertinent negative responses have been documented in the HPI. ROS Other: All systems not noted in ROS Statement are negative. Past Medical History Past Medical History: Asthma, GERD/Reflux Additional Past Medical History / Comment(s): vertigo, History of Any Multi-Drug Resistant Organisms: None Reported Past Surgical History: No Surgical Hx Reported Additional Past Surgical History / Comment(s): EGD, wisdom teeth extractions. Past Anesthesia/Blood Transfusion Reactions: No Reported Reaction Past Psychological History: Anxiety, Bipolar, Depression, PTSD Smoking Status: Never smoker Past Alcohol Use History: None Reported Past Drug Use History: None Reported - Past Family History Father Additional Family Medical History / Comment(s): Anxiety, depression, bipolar, cholecystectomy Mother Family Medical History: Thyroid Disorder Additional Family Medical History / Comment(s): Anxiety, depression. General Exam Limitations: no limitations General appearance: alert, in no apparent distress Head exam: Present: atraumatic, normocephalic, normal inspection Eye exam: Present: normal appearance, PERRL, EOMI. Absent: scleral icterus, c onjunctival injection, periorbital swelling ENT exam: Present: normal exam, normal oropharynx, mucous membranes moist, TM's normal bilaterally, normal external ear exam (Left ear canal there is a small amount of cerumen no occlusion, no foreign body no erythema) Neck exam: Present: normal inspection, full ROM. Absent: tenderness, meningismus, lymphadenopathy Respiratory exam: Present: normal lung sounds bilaterally. Absent: respiratory distress, wheezes, rales, rhonchi, stridor Cardiovascular Exam: Present: regular rate, normal rhythm, normal heart sounds. Absent: systolic murmur, diastolic murmur, rubs, gallop, clicks Course Vital Signs 08/10/21 07:35 Temperature 98.6 F Pulse Rate 57 L Respiratory 18 Rate Blood Pressure 131/57 O2 Sat by Pulse 99 Oximetry Medical Decision Making - Medical Decision Making Patient presented for possible foreign body left. There is no foreign body patient will be discharged in stable condition return parameters discussed. Disposition Clinical Impression: Left ear impacted cerumen Disposition: HOME SELF-CARE Condition: Stable Instructions (If sedation given, give patient instructions): Earache (ED) Additional Instructions: Please return to the Emergency Department if symptoms worsen or any other concerns. Is patient prescribed a controlled substance at d/c from ED?: No Referrals: Michelle Shultz MD [Primary Care Provider] - 1-2 days Time of Disposition: 08:00
== END 2021-08-10 08:22 | disposition home or self-care (01) ==
LOC: EC 07:26
DX: H61.22 Impacted cerumen, left ear (principal); J45.909 Unspecified asthma, uncomplicated; Z91.09 Other allergy status, other than to drugs and biological substances; Z91.018 Allergy to other foods
CPT/HCPCS: 99283

== ENCOUNTER 2021-09-15 01:48 | Emergency (ER) | payer OTHER ==
--- NOTE | 2021-09-15 02:15 | ED ---
General Adult HPI - General Stated complaint: Palpitations Time Seen by Provider: 09/15/21 02:14 - History of Present Illness Initial comments: Pushpa is a 21-year-old female with a history of severe anxiety and heart palpitations. She presents the ER today via ambulance after waking up and feeling like her heart was racing. Patient states that it feels like her typical anxiety, she states that she is very anxious because her boyfriend has had a few days off work and she's got some unhealthy attachment issues and she is anxious about him going back to work today. - Related Data Home Medications Medication Instructions Recorded Confirmed Albuterol Sulfate [Proair Hfa] 2 puff INHALATION RT-Q6H PRN 12/02/20 08/03/21 Albuterol Nebulized [Ventolin 2.5 mg INHALATION RT-Q6H PRN 06/25/21 08/03/21 Nebulized] Allergies Allergy/AdvReac Type Severity Reaction Status Date / Time aloe vera Allergy Rash/Hives Verified 08/10/21 07:38 cinnamon Allergy Unknown Verified 08/10/21 07:38 strawberry Allergy Rash/Hives Verified 08/10/21 07:38 gluten AdvReac Nausea & Verified 08/10/21 07:38 Vomiting & Diarrhea Review of Systems ROS Statement: Those systems with pertinent positive or pertinent negative responses have been documented in the HPI. ROS Other: All systems not noted in ROS Statement are negative. Past Medical History Past Medical History: Asthma, GERD/Reflux Additional Past Medical History / Comment(s): vertigo, History of Any Multi-Drug Resistant Organisms: None Reported Past Surgical History: No Surgical Hx Reported Additional Past Surgical History / Comment(s): EGD, wisdom teeth extractions. Past Anesthesia/Blood Transfusion Reactions: No Reported Reaction Past Psychological History: Anxiety, Bipolar, Depression, PTSD Smoking Status: Never smoker Past Alcohol Use History: None Reported Past Drug Use History: None Reported - Past Family History Father Additional Family Medical History / Comment(s): Anxiety, depression, bipolar, cholecystectomy Mother Family Medical History: Thyroid Disorder Additional Family Medical History / Comment(s): Anxiety, depression. General Exam - General Exam Comments Initial Comments: Physical Exam GENERAL: Patient is well-developed and well-nourished. Patient is nontoxic and well-hydrated and is in no distress. Morbidly obese HENT: Normocephalic, Atraumatic. EYES: PERRL, EOMI PULMONARY: Unlabored respirations. No audible rales rhonchi or wheezing was noted. CARDIOVASCULAR: There is a regular rate and rhythm without any murmurs gallops or rubs. ABDOMEN: Soft and nontender with normal bowel sounds. SKIN: Skin is clear with no lesions or rashes and otherwise unremarkable. : Deferred NEUROLOGIC: Patient is alert and oriented x3. Moving all extremities spontaneously MUSCULOSKELETAL: Normal extremities with adequate strength and full range of motion. No lower extremity swelling or edema. No calf tenderness. PSYCHIATRIC: Normal psychiatric evaluation. Course Vital Signs 09/15/21 02:06 Temperature 98 F Pulse Rate 88 Respiratory 17 Rate Blood Pressure 131/78 O2 Sat by Pulse 99 Oximetry EKG Findings - EKG Comments: EKG Findings:: EKG was obtained due to palpitations, EKG obtained at 2:05 AM, rate 89 rhythm sinus, axis normal intervals RI 177 QRS 107 QTC [address] elevations or depressions no evidence of ischemia or infarction. Medical Decision Making - Medical Decision Making She was seen and evaluated, patient states she'll feel better she has an EKG. EKG was obtained and is sinus rhythm there is no signs of arrhythmia. Patient feels reassured, her vital signs are unremarkable she has no cardiac risk factors patient is stable for discharge home. Disposition Clinical Impression: Heart palpitations, Acute anxiety Disposition: HOME SELF-CARE Condition: Stable Instructions (If sedation given, give patient instructions): Heart Palpitations (DC) Is patient prescribed a controlled substance at d/c from ED?: No Referrals: Michelle Shultz MD [Primary Care Provider] - 1-2 days
--- NOTE | 2021-09-15 02:22 | XR ---
EXAMINATION TYPE: XR chest 2V DATE OF EXAM: 09/15/2021 COMPARISON: 08/03/2021 HISTORY: Chest pain TECHNIQUE: FINDINGS: Heart and mediastinum are normal. Lungs are clear. Diaphragm is normal. Bony thorax appears normal. IMPRESSION: Normal chest. No change.
[2021-09-15 02:47] VITALS: BP 131/78; PULSE 88; RESP 17; TEMP 98
== END 2021-09-15 03:00 | disposition home or self-care (01) ==
LOC: EC 01:48
DX: F41.9 Anxiety disorder, unspecified (principal); E66.01 Morbid (severe) obesity due to excess calories; J45.909 Unspecified asthma, uncomplicated; Z91.09 Other allergy status, other than to drugs and biological substances; Z68.43 Body mass index [BMI] 50.0-59.9, adult; Z91.018 Allergy to other foods
CPT/HCPCS: 71046; 99285

== ENCOUNTER 2021-09-28 17:59 | Emergency (ER) | payer OTHER ==
--- NOTE | 2021-09-28 19:14 | ED ---
URI HPI - General Chief Complaint: Upper Respiratory Infection Stated Complaint: Cough/KERA Time Seen by Provider: 09/28/21 19:05 Source: patient Mode of arrival: ambulatory Limitations: no limitations - History of Present Illness Initial Comments: 21-year-old female with past medical history of asthma presents emergency Department with upper respiratory infection symptoms. States that they've been present for the past 2 days. Admits to sore throat, nasal congestion and productive cough. She has been using her nebulizer and inhaler at home. Last used yesterday morning. Does not see a construction assistant or primary care doctor. Has not been on any recent steroids. No concern for . No fevers. No chest pain. Did take a home Covid test which was negative. No other alleviating, precipitating or modifying factors - Related Data Home Medications Medication Instructions Recorded Confirmed Albuterol Sulfate [Proair Hfa] 2 puff INHALATION RT-Q6H PRN 12/02/20 08/03/21 Albuterol Nebulized [Ventolin 2.5 mg INHALATION RT-Q6H PRN 06/25/21 08/03/21 Nebulized] Allergies Allergy/AdvReac Type Severity Reaction Status Date / Time aloe vera Allergy Rash/Hives Verified 09/28/21 19:03 cinnamon Allergy Unknown Verified 09/28/21 19:03 strawberry Allergy Rash/Hives Verified 09/28/21 19:03 gluten AdvReac Nausea & Verified 09/28/21 19:03 Vomiting & Diarrhea Review of Systems ROS Statement: Those systems with pertinent positive or pertinent negative responses have been documented in the HPI. ROS Other: All systems not noted in ROS Statement are negative. Past Medical History Past Medical History: Asthma, GERD/Reflux Additional Past Medical History / Comment(s): vertigo, History of Any Multi-Drug Resistant Organisms: None Reported Past Surgical History: No Surgical Hx Reported Additional Past Surgical History / Comment(s): EGD, wisdom teeth extractions. Past Anesthesia/Blood Transfusion Reactions: No Reported Reaction Past Psychological History: Anxiety, Bipolar, Depression, PTSD Smoking Status: Never smoker Past Alcohol Use History: None Reported Past Drug Use History: None Reported - Past Family History Father Additional Family Medical History / Comment(s): Anxiety, depression, bipolar, cholecystectomy Mother Family Medical History: Thyroid Disorder Additional Family Medical History / Comment(s): Anxiety, depression. General Exam Limitations: no limitations General appearance: alert, in no apparent distress Head exam: Present: atraumatic, normocephalic, normal inspection Eye exam: Present: normal appearance, PERRL, EOMI. Absent: scleral icterus, conjunctival injection, periorbital swelling ENT exam: Present: normal exam, mucous membranes moist Neck exam: Present: normal inspection. Absent: tenderness, meningismus, lymphadenopathy Respiratory exam: Present: wheezes. Absent: respiratory distress, rales, rhonchi, stridor Cardiovascular Exam: Present: regular rate, normal rhythm, normal heart sounds. Absent: systolic murmur, diastolic murmur, rubs, gallop, clicks GI/Abdominal exam: Present: soft, normal bowel sounds. Absent: distended, tenderness, guarding, rebound, rigid Extremities exam: Present: normal inspection, full ROM, normal capillary refill. Absent: tenderness, pedal edema, joint swelling, calf tenderness Back exam: Present: normal inspection Neurological exam: Present: alert, oriented X3, CN II-XII intact Psychiatric exam: Present: normal affect, normal mood Skin exam: Present: warm, dry, intact, normal color. Absent: rash Course Vital Signs 09/28/21 09/28/21 19:02 21:14 Temperature 98.1 F 98.0 F Pulse Rate 98 72 Respiratory 20 16 Rate Blood Pressure 119/69 122/79 O2 Sat by Pulse 96 97 Oximetry Medical Decision Making - Medical Decision Making Upon arrival patient is swabbed for strep, Covid and influenza. Chest x-rays performed. Review of the patient's labs demonstrate that she is positive for Covid. Did discuss treatment with monoclonal antibodies however patient refused. Also recommending treatment with steroids as the patient does have a history of asthma however she refuses this treatment as well. She states she will use her inhaler at home and return for any new or worsening symptoms. Patient was discharged home in stable condition - Lab Data Lab Results 09/28/21 09/28/21 09/28/21 Range/Units 19:10 19:10 19:10 Coronavirus (PCR) Detected A (Not Detectd) Influenza Type A RNA Not Detected (Not Detectd) Influenza Type B (PCR) Not Detected (Not Detectd) Group A Strep Rapid Negative (Negative) Disposition Clinical Impression: COVID-19 Disposition: HOME SELF-CARE Condition: Stable Instructions (If sedation given, give patient instructions): COVID-19 (Coronavirus Disease 2019) (ED) Additional Instructions: You have Covid. Please quarantine for 5 days. Return if your oxygen goes less than 90%. Continue using your breathing treatments every 4 hours Is patient prescribed a controlled substance at d/c from ED?: No Referrals: None,Stated [Primary Care Provider] - 1-2 days Time of Disposition: 21:13
--- NOTE | 2021-09-28 20:00 | XR ---
EXAMINATION TYPE: XR chest 2V DATE OF EXAM: 09/28/2021 COMPARISON: 09/15/2021 HISTORY: Cough TECHNIQUE: FINDINGS: Heart and mediastinum are normal. Lungs are clear. Diaphragm is normal. Bony thorax appears normal. IMPRESSION: Normal chest. No change.
[2021-09-28 21:15] VITALS: BP 122/79; PULSE 72; RESP 16; TEMP 98
== END 2021-09-28 21:18 | disposition home or self-care (01) ==
LOC: EC 17:59
DX: U07.1 COVID-19 (principal); J44.9 Chronic obstructive pulmonary disease, unspecified; Z91.09 Other allergy status, other than to drugs and biological substances; Z91.018 Allergy to other foods
CPT/HCPCS: 71046; 87081; 87430; 87502; 87635

== ENCOUNTER 2021-12-12 16:08 | Emergency (ER) | payer OTHER ==
[2021-12-12 16:18] VITALS: RESP 16
--- NOTE | 2021-12-12 17:13 | XR ---
EXAMINATION TYPE: XR ankle complete LT DATE OF EXAM: 12/12/2021 5:00 PM INDICATION: Patient age:Female; 21 years old; Reason for study: pain, fall; COMPARISON: None TECHNIQUE: The left ankle is imaged in frontal, lateral and oblique projections. FINDINGS: There is no evidence of acute osseous pathology. The joint spaces are well-preserved without evidenc e of subluxation or dislocation. Kager's fat pad is intact. Mild soft tissue swelling around the ankl e. No radiopaque foreign bodies are identified. IMPRESSION: 1. No evidence of acute fracture. 2. Subcutaneous swelling around the ankle likely secondary to underlying soft tissue injury.
--- NOTE | 2021-12-12 17:51 | ED ---
General Adult HPI - General Chief complaint: Extremity Injury, Lower Stated complaint: Fall-L foot injury Time Seen by Provider: 12/12/21 16:19 Source: patient, RN notes reviewed, old records reviewed Mode of arrival: ambulatory Limitations: no limitations - History of Present Illness Initial comments: Patient is a 21-year-old female with no significant past medical history presents emergency Department after injuring her left ankle. She stepped into a hole and rolled her left ankle. Has a history of multiple ankle sprains. Was told her bones are "fragile" and presents emergency department for an x-ray. Denies any sensory deficits. Endorses pain on the medial and lateral aspect of the ankle with ambulation. Injury occurred last night. She has been limping since. No other acute complaints at this time. Denies numbness. - Related Data Home Medications Medication Instructions Recorded Confirmed Albuterol Sulfate [Proair Hfa] 2 puff INHALATION RT-Q6H PRN 12/02/20 08/03/21 Albuterol Nebulized [Ventolin 2.5 mg INHALATION RT-Q6H PRN 06/25/21 08/03/21 Nebulized] Allergies Allergy/AdvReac Type Severity Reaction Status Date / Time aloe vera Allergy Rash/Hives Verified 12/12/21 16:18 cinnamon Allergy Unknown Verified 12/12/21 16:18 strawberry Allergy Rash/Hives Verified 12/12/21 16:18 gluten AdvReac Nausea & Verified 12/12/21 16:18 Vomiting & Diarrhea Review of Systems ROS Statement: Those systems with pertinent positive or pertinent negative responses have been documented in the HPI. Review of Systems: CONST: Denies fever EYES: Denies blurry vision ENT: Denies nasal congestion C/V: Denies Chest pain RESP: Denies shortness of breath GI: Denies abdominal pain : Denies dysuria SKIN: Denies rash. MSK: Endorses left foot pain NEURO: Denies headache ROS Other: All systems not noted in ROS Statement are negative. Past Medical History Past Medical History: Asthma, GERD/Reflux Additional Past Medical History / Comment(s): vertigo, anxiety, migranes History of Any Multi-Drug Resistant Organisms: None Reported Past Surgical History: No Surgical Hx Reported Additional Past Surgical History / Comment(s): EGD, wisdom teeth extractions. Past Anesthesia/Blood Transfusion Reactions: No Reported Reaction Past Psychological History: Anxiety, Bipolar, Depression, PTSD Smoking Status: Never smoker Past Alcohol Use History: None Reported Past Drug Use History: None Reported - Past Family History Father Additional Family Medical History / Comment(s): Anxiety, depression, bipolar, cholecystectomy Mother Family Medical History: Thyroid Disorder Additional Family Medical History / Comment(s): Anxiety, depression. General Exam - General Exam Comments Initial Comments: General: Appears in no acute distress. HEAD: Normal with no signs of head trauma. EYES: EOMI ENT: Hearing grossly intact RESPIRATORY: No respiratory distress C/V: Peripheral pulses 2+ and intact throughout ABD: Abdomen is nondistended EXT: Normal range of motion, no obvious deformity. Tenderness to palpation over the medial and lateral malleoli of the left ankle. No foot tenderness to palpation. Neurovascularly intact. SKIN: No rashes or lesions observed on exposed skin. NEURO: Alert and oriented 4. No focal deficits. Limitations: no limitations Course Vital Signs 12/12/21 12/12/21 16:15 18:13 Temperature 98 F 98.1 F Pulse Rate 88 76 Respiratory 16 16 Rate Blood Pressure 105/67 132/87 O2 Sat by Pulse 98 97 Oximetry Medical Decision Making - Medical Decision Making Based on the patient's presentation and physical exam, I suspect she likely spr ained her left ankle but cannot rule out bony traumatic injury. We'll obtain an x-ray. She declines analgesic medications at this time. X-ray shows soft tissue swelling but no acute injury. I discussed with the patient. She discussed understanding. Has an ankle sprain. Offered crutches which she declined. Will provide an Flash bandage and follow up with PCP. Can use [id number] analgesia for pain control. I instructed the patient to follow up with their PCP in the next 1-3 days. I explained that the patient should return to the emergency department if they experience any worsening symptoms. Strict return precautions were discussed with the patient. The patient expressed understanding of these instructions. I answered all questions that the patient had. The patient was discharged home in good condition with their prescriptions and follow up information. Disposition Clinical Impression: Ankle sprain Disposition: HOME SELF-CARE Condition: Good Instructions (If sedation given, give patient instructions): Ankle Sprain (ED) Is patient prescribed a controlled substance at d/c from ED?: No Referrals: None,Stated [Primary Care Provider] - 1-2 days Time of Disposition: 17:30
[2021-12-12 18:15] VITALS: BP 132/87; PULSE 76; TEMP 98.1
== END 2021-12-12 18:37 | disposition home or self-care (01) ==
LOC: EC 16:08
DX: S93.402A Sprain of unspecified ligament of left ankle, initial encounter (principal); J45.909 Unspecified asthma, uncomplicated; Z91.018 Allergy to other foods; Z88.8 Allergy status to other drugs, medicaments and biological substances; X50.1XXA Overexertion from prolonged static or awkward postures, initial encounter
CPT/HCPCS: 99283

== ENCOUNTER 2022-03-24 01:08 | Emergency (ER) | payer OTHER ==
[2022-03-24 01:12] VITALS: BP 133/83; PULSE 77; RESP 16; TEMP 98.2
--- NOTE | 2022-03-24 01:20 | ED ---
General Adult HPI - General Chief complaint: Skin/Abscess/Foreign Body Stated complaint: Rash Time Seen by Provider: 03/24/22 01:14 Source: patient, RN notes reviewed, old records reviewed Mode of arrival: ambulatory Limitations: no limitations - History of Present Illness Initial comments: 21-year-old female with rash to the right side of her right breast. Present for the past several days. She had a rash previously on her left leg which is resolved. This is itchy, irritated. No fevers. No new soaps. No changes. - Related Data Home Medications Medication Instructions Recorded Confirmed Albuterol Sulfate [Proair Hfa] 2 puff INHALATION RT-Q6H PRN 12/02/20 08/03/21 Albuterol Nebulized [Ventolin 2.5 mg INHALATION RT-Q6H PRN 06/25/21 08/03/21 Nebulized] Previous Rx's Medication Instructions Recorded Hydrocortisone Cream 1 applic TOPICAL BID #28 gm 03/24/22 [Hydrocortisone 2.5% Cream] Allergies Allergy/AdvReac Type Severity Reaction Status Date / Time aloe vera Allergy Rash/Hives Verified 03/24/22 01:09 banana Allergy Unknown Verified 03/24/22 01:10 cinnamon Allergy Unknown Verified 03/24/22 01:09 peanut [Peanut Butter] Allergy Unknown Verified 03/24/22 01:10 strawberry Allergy Rash/Hives Verified 03/24/22 01:09 gluten AdvReac Nausea & Verified 03/24/22 01:09 Vomiting & Diarrhea Review of Systems ROS Statement: Those systems with pertinent positive or pertinent negative responses have been documented in the HPI. ROS Other: All systems not noted in ROS Statement are negative. Past Medical History Past Medical History: Asthma, GERD/Reflux Additional Past Medical History / Comment(s): vertigo, anxiety, migranes History of Any Multi-Drug Resistant Organisms: None Reported Past Surgical History: No Surgical Hx Reported Additional Past Surgical History / Comment(s): EGD, wisdom teeth extractions. Past Anesthesia/Blood Transfusion Reactions: No Reported Reaction Past Psychological History: Anxiety, Bipolar, Depression, PTSD Smoking Status: Never smoker Past Alcohol Use History: None Reported Past Drug Use History: None Reported - Past Family History Father Additional Family Medical History / Comment(s): Anxiety, depression, bipolar, cholecystectomy Mother Family Medical History: Thyroid Disorder Additional Family Medical History / Comment(s): Anxiety, depression. General Exam Limitations: no limitations General appearance: alert, in no apparent distress Head exam: Present: atraumatic, normocephalic Eye exam: Present: normal appearance, PERRL ENT exam: Present: normal exam Neck exam: Present: normal inspection. Absent: tenderness, meningismus Respiratory exam: Present: normal lung sounds bilaterally. Absent: respiratory distress, wheezes Cardiovascular Exam: Present: regular rate, normal rhythm Neurological exam: Present: alert, oriented X3 Psychiatric exam: Present: normal affect, normal mood Skin exam: Present: other (Erythematous rash on the right side of the breast) Course Vital Signs 03/24/22 01:10 Temperature 98.2 F Pulse Rate 77 Respiratory 16 Rate Blood Pressure 133/83 O2 Sat by Pulse 98 Oximetry Medical Decision Making - Medical Decision Making We'll trial hydrocortisone cream. If symptoms persist she may benefit from an antifungal. She should follow-up with her primary care physician. Disposition Clinical Impression: Contact dermatitis Disposition: HOME SELF-CARE Condition: Good Instructions (If sedation given, give patient instructions): Contact Dermatitis (ED) Prescriptions: Hydrocortisone Cream [Hydrocortisone 2.5% Cream] 1 applic TOPICAL BID #28 gm Is patient prescribed a controlled substance at d/c from ED?: No Referrals: None,Stated [Primary Care Provider] - 1-2 days Michelle Shultz MD [REFERRING] - 1-2 days Time of Disposition: 01:18
== END 2022-03-24 01:30 | disposition home or self-care (01) ==
LOC: EC 01:08
DX: L25.9 Unspecified contact dermatitis, unspecified cause (principal); J45.909 Unspecified asthma, uncomplicated; K21.9 Gastro-esophageal reflux disease without esophagitis; F41.9 Anxiety disorder, unspecified; F31.9 Bipolar disorder, unspecified; Z79.51 Long term (current) use of inhaled steroids; Z79.899 Other long term (current) drug therapy; Z91.018 Allergy to other foods; Z88.8 Allergy status to other drugs, medicaments and biological substances
CPT/HCPCS: 99282; 99283